=== PATIENT | female | born 2005 | race Caucasian/White ===

== ENCOUNTER 2023-03-25 10:09 | Outpatient (AMB) | payer OTHER, SELFPAY ==
--- NOTE | 2023-03-25 10:14 | A.OFFPC_ITS ---
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 Is last menstrual period known: Yes Last menstrual period: 02/25/23 Allergies amoxicillin [From Augmentin] Allergy (Intermediate, Verified 04/21/23 11:36) Hives clavulanic acid [From Augmentin] Allergy (Intermediate, Verified 04/21/23 11:36) Hives Levaquin Adverse Reaction (Severe, Uncoded 04/21/23 11:36) Nausea and Vomiting Medication List - Last Reconciled 04/21/23 by Josey Villatoro MD albuterol sulfate 90 mcg/actuation 2 puffs inhalation Q6H PRN medroxyprogesterone (Depo-Provera) 150 mg IM [id number] Tobacco use date assessed: 03/25/23 Dental Screening Dental Screen Date: 03/25/23 Did you have a dental visit in the last 12 months?: Yes Did you have a dental problem in the last 6 months where you did not have access to dental care?: No Was dental information given to patient?: Patient has dentist HPI NPV- requesting PHY HPI Details 17-year-old lady, new to practice, here to establish care with new PCP and for physical exam. She was recently seen at [facility] and diagnosed with acute right pyelonephritis January 2023. And at that time was given Levaquin which she was unable to tolerate, and was switched to cefpodoxime. Denies any urinary symptoms at present. She sees to [facility] OBGYN for her routine Pap and 5 exam, currently on Depo-Provera for control. Has mild intermittent asthma, has albuterol inhaler which she rarely needs to use. Does not smoke cigarettes but vapes. [facility] Medical History (Updated 05/19/23 @ 14:30 by Josey Villatoro MD) Vitamin D deficiency Refused influenza vaccine COVID-19 vaccination refused Hx of suicide attempt Anxiety and depression On Depo-Provera for contraception Engages in vaping Mild intermittent asthma History of pyelonephritis Surgical History (Updated 03/25/23 @ 10:59 by Josey Villatoro MD) History of placement of ear tubes H/O removal of cyst History of hand surgery Family History (Updated 03/25/23 @ 11:05 by Josey Villatoro MD) Father Substance use disorder Mental health disorder Chronic alcoholism Mother Depression Maternal Grandmother Mental health disorder Biventricular congestive heart failure Paternal Grandmother Mental health disorder Paternal Grandfather Diabetes mellitus Social History Housing: Apartment Patient Tobacco Use Status: Never used Tobacco e-Cigarette/Vaping Use: Currently Using Current occupational status: employed Current occupation: [employer] Current occupational exposures/hazards: No Cognitive needs: No Hearing needs: No Vision needs: No Female Reproductive History Menstrual Date of last menstrual period: 02/25/23 control method: progesterone injection (Started 03/13/23) Other: sees [facility] has an appointment April 08 for initial Pap/ pelvic exam Questionnaire PHQ-9 Over the last 2 weeks, how often have you been bothered by any of the following problems? 1. Little interest or pleasure in doing things: more than half the days 2. Feeling down, depressed, or hopeless: nearly every day 3. Trouble falling or staying asleep, or sleeping too much: nearly every day 4. Feeling tired or having little energy: more than half the days 5. Poor appetite or overeating: nearly every day 6. Feeling bad about yourself - or that you are a failure or have let yourself or your family down: nearly every day 7. Trouble concentrating on things, such as reading the newspaper or watching television: several days 8. Moving or speaking so slowly that other people could have noticed. Or the opposite - being so fidgety or restless that you have been moving around a lot more than usual: several days 9. Thoughts that you would be better off or of hurting yourself in some way: several days Total score: 19 Depression Screening Interpretation: Positive Depression Screening Follow-up: Existing condition and Community Mental Health Worker F/U Depression Screening Done: Yes 74113 - PHQ-9 Billing: Yes Source: Developed by Drs. Alberto Bejarano, Maricruz Ibanez, Babak Tong and colleagues, with an educational taryn from [employer] Thrive Questionnaire Date Thrive assessed: 03/25/23 I am a: Patient What is your living situation today?: I have a steady place to live Within the past 12 months, did the food you bought not last and you didn't have the money to get more?: Often true Within the past 12 months, did you worry whether your food would run out before you got money to buy more?: Sometimes True Do you have trouble paying for medicines?: Yes Do you have trouble getting transportation to medical appointments?: Yes Do you have trouble paying your heating and electricity bill?: No Do you have trouble taking care of your child, family member or friend?: No Do you have trouble with day-to-day activities such as bathing, preparing meals, shopping, managing finances, etc.?: Yes Are you currently unemployed and looking for a job?: Yes Are you interested in more education?: No Please select the resources that you would like help with: Food, Daily support and Job search/training AUDIT C Alcohol Use Questionnaire (AUDIT-C) 1. How often do you have a drink containing alcohol?: 2-4 times a month 2. How many drinks containing alcohol do you have on a typical day when you are drinking?: 3 or 4 3. How often do you have six or more drinks on one occasion?: Never Total Score: 3 HARVEY-7 AMB Questionnaire HARVEY-7 Date HARVEY - 7 assessed: 03/25/23 Feeling nervous, anxious, or on edge: 3 = Nearly every day Not being able to stop or control worryin = Nearly every day Worrying too much about different things: 3 = Nearly every day Trouble relaxin = Nearly every day Being so restless that it is hard to sit still: 2 = More than half the days Becoming easily annoyed or irritable: 3 = Nearly every day Feeling afraid as if something awful might happen: 3 = Nearly every day Total HARVEY-7 score (0-4 normal; 5-9 mild; 10-14 moderate; 15-21 severe): 20 Source: Developed by Drs. Alberto Bejarano, Maricruz Ibanez, Babak Tong and colleagues, with an educational taryn from [employer] HARVEY-7 Assessment Billing HARVEY-7 Assessment Tool: HARVEY-7 Assessment 38108 Review of Systems Const Denies body aches, Denies fatigue, Denies fever(s), Denies headache(s) and Denies weakness Eyes Denies change in vision, Denies eye discharge and Denies itchy eyes ENT Denies dizziness, Denies headache(s), Denies nasal congestion, Denies nasal discharge and Denies sore throat Card Denies chest pain, Denies lightheadedness, Denies palpitations and Denies dyspnea Resp Denies chest congestion, Denies cough, Denies dyspnea and Denies wheezing GI Denies abdominal pain, Denies change in bowel habits and Denies heartburn Denies hematuria, Denies urinary frequency, Denies dysuria and Denies urinary urgency Musc Reports no additional complaints Skin/Breast Denies breast pain, Denies breast mass, Denies lesions and Denies rash Neuro Denies dizziness, Denies headache(s) and Denies weakness Psych Reports as per HPI Endo Denies fatigue, Denies polydipsia, Denies polyuria and Denies palpitations Dano/Lymph Denies easy bruising Aller/Immun Denies itchy eyes, Denies seasonal rhinorrhea and Denies wheezing Physical exam (Primary Care) Vital Signs: Last Vital Signs Pulse 88 03/25/23 10:18 BP 98/64 03/25/23 10:18 Pulse Ox 99 03/25/23 10:18 Oxygen Delivery Method Room Air 03/25/23 10:18 BMI result Body Mass Index 19.1 Tobacco/Smoking Status: Tobacco use Status Tobacco use date assessed 03/25/23 03/25/23 10:35 Patient Tobacco Use Status Never used Tobacco 03/25/23 10:35 e-Cigarette/Vaping Use Currently Using 03/25/23 10:35 PHQ-9: PHQ-9 Score PHQ-9: Total score 19 03/25/23 11:15 Depression Screening Interpretation: Positive Depression Screening Follow-up: Existing condition and Community Mental Health Worker F/U Thrive Assessment: Date of Thrive Assessment Date Thrive assessed 03/25/23 03/25/23 10:40 Const Other: Accompanied by mother on this visit General: no acute distress and alert Nutritional Appearance: average body habitus Orientation/consciousness: patient oriented x3 HENMT Head: Yes normocephalic and Yes atraumatic Ears: external ears normal, TM's normal bilaterally and EAC's normal General nose exam: Normal external nose present and No nasal discharge present Face and sinus: Yes face symmetric Mouth: Normal oral and palatal mucosa present, lip normal, tongue normal, oropharynx normal and moist mucous membranes Eyes General: appearance normal, both eyes and all related structures Eyelids: Yes eyelids normal Conjunctivae: conjunctivae normal Sclerae: sclerae normal Pupils: Equal, round and reactive pupils present EOM: EOMs intact bilaterally Neck Neck: Yes full ROM, Yes no lymphadenopathy and Yes supple Thyroid: Thyroid normal Chest Breast/axilla palpation: normal palpation of the breasts Resp Effort & Inspection: normal respiratory effort and able to speak in complete sentences Auscultation: clear to auscultation bilaterally Cardio Rate: regular rate Rhythm: regular rhythm Heart sounds: S1 normal heart sound present and S2 normal heart sound present GI Palpation (GI): Soft to palpation, nontender, no guarding and no masses Auscultation: normal bowel sounds General: Yes no CVA tenderness Back/Spine/Pelvis Back: no CVA tenderness and No back tenderness Skin General skin exam: no rashes or lesions noted Neuro General: patient oriented x3, gait normal, moves all extremities, Normal light touch and pain sensation, no focal motor deficits and CN's II-XI intact bilaterally Cranial nerves: Yes Equal, round and reactive pupils present Cognition (Neuro): normal cognition Gait exam (Neuro): Normal gait present Motor exam (neuro): 5/5 motor strength present throughout Extrem General: Yes normal to inspection, Yes full ROM, Yes no joint enlargement, Yes no pedal edema and Yes normal gait Psych Appearance: grossly normal and well kempt Mental Status: mental status grossly normal Speech and movement: Normal speech and movement present Affect: Irritable affect present Attitude: cooperative Thought process: Normal thought process present Thought content: Normal thought content present Assessment and Plan Assessment & Plan (1) Annual visit for general adult medical examination with abnormal findings: Code(s): Z00.01 - Encounter for general adult medical examination with abnormal findings Plan: Will check appropriate labs. Recommended dental visit every 6 months and regular eye exams, at least every 2 years. Advised to do regular self-breast exam, and start yearly mammogram at age 38. Up-to-date with all her childhood vaccinations, including Tdap and HPV, reminded to get her flu shot but declined to get it today and has had COVID vaccines in the past but does not want to get a COVID booster. She goes to [facility] for her routine Pap and pelvic exam, has an appointment for her initial Pap and pelvic exam 04/08/23 (2) Anxiety and depression: Comment: hx of cutting since 6th grade Code(s): F41.9 - Anxiety disorder, unspecified; F32.A - Depression, unspecified Plan: Referred to [facility]. Patient has seen a therapist/psychiatrist in the past at [facility], but disliked the care she received. She has been to [facility] ER in the past and has no mental health past or in-patient hospital admissions. Pt. denies SI thoughts at this time. Pt. to be referred for in-person therap y/psychiatrist. (3) Engages in vaping: Code(s): Z72.89 - Other problems related to lifestyle Plan: Advised to stop vaping habit as she is can cause asthma exacerbation (4) Mild intermittent asthma: Code(s): J45.20 - Mild intermittent asthma, uncomplicated Qualifiers: Asthma complication type: uncomplicated Qualified Code(s): J45.20 - Mild intermittent asthma, uncomplicated Plan: Uses albuterol inhaler as needed for acute episodes of wheezing and bronchospasm , patient states that she rarely needs to use inhaler Orders: Orders Complete Blood Count Auto Diff 03/25/23 F41.9 - Anxiety disorder, unspecified, F32.A - Depression, unspecified, Z72.89 - Other problems related to lifestyle, J45.20 - Mild intermittent asthma, uncomplicated, Z00.01 - Encounter for general adult medical examination with abnormal findings Vitamin D 25-OH Total 03/25/23 F41.9 - Anxiety disorder, unspecified, F32.A - Depression, unspecified, Z72.89 - Other problems related to lifestyle, J45.20 - Mild intermittent asthma, uncomplicated, Z00.01 - Encounter for general adult medical examination with abnormal findings Comprehensive [place]. Panel Fast 03/25/23 F41.9 - Anxiety disorder, unspecified, F32.A - Depression, unspecified, Z72.89 - Other problems related to lifestyle, J45.20 - Mild intermittent asthma, uncomplicated, Z00.01 - Encounter for general adult medical examination with abnormal findings TSH reflex Free T4 03/25/23 F41.9 - Anxiety disorder, unspecified, F32.A - Depression, unspecified, Z72.89 - Other problems related to lifestyle, J45.20 - Mild intermittent asthma, uncomplicated, Z00.01 - Encounter for general adult medical examination with abnormal findings Lipid Panel 03/25/23 Z00.01 - Encounter for general adult medical examination with abnormal findings, Z13.220 - Encounter for screening for lipoid disorders Coding Level of Care Code New Pt Prev Care 18-39yr([id number] Diagnoses Annual visit for general adult medical examination with abnormal findings Z00.01 Anxiety and depression F41.9; F32.A Engages in vaping Z72.89 Mild intermittent asthma without complication J45.20 Asthma complication type: uncomplicated Additional Codes HARVEY-7 Assessment Billing - HARVEY-7 Assessment Tool: HARVEY-7 Assessment 83108 ([id number])
[2023-03-25 10:18] VITALS: BP 98/64; PULSE 88; O2SAT 99; BMI 19.1
== END 2023-03-25 12:29 | disposition home or self-care (01) ==
PROVIDERS: Visit Provider Internal Medicine
DX: Z00.00 Encounter for general adult medical examination without abnormal findings (principal); F41.9 Anxiety disorder, unspecified; F32.A Depression, unspecified; Z72.89 Other problems related to lifestyle; J45.20 Mild intermittent asthma, uncomplicated
CPT/HCPCS: 96127; 99385

== ENCOUNTER 2023-03-25 11:54 | Outpatient (REF) | payer OTHER, SELFPAY ==
[2023-03-25 13:18] LABS: MANUAL DIFF FLAG NO
[2023-03-25 13:40] LABS: Basophils Percent Auto 0.5 % (0-2); Eosinophils Absolute Auto 0.4 X10*3/uL (0.0-0.4); Eosinophils Percent Auto 4.9 % (0-4); Hematocrit 44.2 % (37.0-47.0); Hemoglobin 14.9 g/dl (12.0-16.0); Imm Gran Abs Auto 0.02 X10*3/uL (0.00-0.03); Imm Gran Pct Auto 0.2 % (0.0-0.4); Lymphocytes Absolute Auto 3.9 X10*3/uL (1.2-4.9); Lymphocytes Percent Auto 48.8 % (20-40); Mean Corpuscular HGB Conc 33.7 g/dl (31.0-35.0); Mean Corpuscular Hemoglobin 28.9 pg (27.0-33.0); Mean Corpuscular Volume 85.8 fL (80.0-98.0); Mean Platelet Volume 10.3 fL (9.4-12.3); Monocytes Absolute Auto 0.7 X10*3/uL (0.1-1.2); Monocytes Percent Auto 8.2 % (2-11); Neutrophils Percent Auto 37.4 % (45-73); Platelet Count 273 X10*3/uL (160-400); Red Blood Count 5.15 X10*6/uL (4.20-5.50)
[2023-03-25 14:13] LABS: Alanine Aminotransferase 19 U/L (0-31); Albumin Level 4.8 g/dL (3.5-5.0); Alkaline Phosphatase 73 U/L (39-117); Anion Gap 10 (12-20); Aspartate Amino Transferase 22 U/L (5-31); Bilirubin Total 1.5 mg/dL (0.0-1.0); Blood Urea Nitrogen 8 mg/dL (9-16); Calcium 9.4 mg/dL (8.4-10.2); Carbon Dioxide 23 mmol/L (22-29); Chloride 106 mmol/L (96-108); Cholesterol 168 mg/dL (<200); Estimated Glomerular Filt Rate > 60; Glucose Fasting 82 mg/dL (60-99); HDL Cholesterol 59 mg/dL (>40); LDL Cholesterol Calculated 99 mg/dL (<100); Potassium 3.8 mmol/L (3.3-5.1); Sodium 135 mmol/L (135-145); Triglycerides 50 mg/dL (<150)
[2023-03-25 14:15] LABS: Vitamin D 25-OH Total 28.9 ng/mL (>30)
== END 2023-03-25 11:55 | disposition home or self-care (01) ==
LOC: HO.HMGCLDS 11:54
PROVIDERS: PCP Internal Medicine; Visit Provider Internal Medicine
DX: Z00.01 Encounter for general adult medical examination with abnormal findings (principal); Z13.220 Encounter for screening for lipoid disorders; J45.20 Mild intermittent asthma, uncomplicated; F41.9 Anxiety disorder, unspecified; F32.A Depression, unspecified; Z72.89 Other problems related to lifestyle
CPT/HCPCS: 36415; 80053; 80061; 82306; 84443; 85025

== ENCOUNTER 2023-04-21 10:56 | Outpatient (AMB) | payer OTHER, SELFPAY ==
[2023-04-21 10:57] VITALS: BP 94/60; PULSE 96; O2SAT 99; BMI 20.2
--- NOTE | 2023-04-21 10:57 | MHC.PC.OV ---
Vital Signs 04/21/23 10:57 Height 5 ft 3.2 in Weight 115 lb BMI 20.2 BP 94/60 Blood Pressure Location Lt brachial Position Sitting Pulse 96 Pulse Source Pulse Oximeter Pulse Oximetry (%) 99 Oxygen Delivery Method Room Air Intake Visit Reasons: Discuss lab/?Urine test Intake Note: Pt is here today to discuss lab results: No current urinary symptoms Allergies amoxicillin [From Augmentin] Allergy (Intermediate, Verified 04/21/23 11:36) Hives clavulanic acid [From Augmentin] Allergy (Intermediate, Verified 04/21/23 11:36) Hives Levaquin Adverse Reaction (Severe, Uncoded 04/21/23 11:36) Nausea and Vomiting Medication List - Last Reconciled 04/21/23 by Josey Villatoro MD albuterol sulfate 90 mcg/actuation 2 puffs inhalation Q6H PRN medroxyprogesterone (Depo-Provera) 150 mg IM [id number] Tobacco use date assessed: 04/21/23 Dental Screening Dental Screen Date: 04/21/23 Did you have a dental visit in the last 12 months?: Yes Did you have a dental problem in the last 6 months where you did not have access to dental care?: No Was dental information given to patient?: Patient has dentist HPI Discuss lab/?Urine test HPI Details 17-year-old lady here today for follow-up regarding results of recent lab test done. Which showed findings within normal limits except for low vitamin-D level. She also is here stating that she tested positive for chlamydia and was prescribed antibiotics by her OB , requesting to be retested. Denies any vaginal discharge, no urinary symptoms, no abdominal pain. [facility] Medical History (Updated 05/19/23 @ 14:30 by Josey Villatoro MD) Vitamin D deficiency Refused influenza vaccine COVID-19 vaccination refused Hx of suicide attempt Anxiety and depression On Depo-Provera for contraception Engages in vaping Mild intermittent asthma History of pyelonephritis Surgical History (Updated 03/25/23 @ 10:59 by Josey Villatoro MD) History of placement of ear tubes H/O removal of cyst History of hand surgery Family History (Updated 03/25/23 @ 11:05 by Josey Villatoro MD) Father Substance use disorder Mental health disorder Chronic alcoholism Mother Depression Maternal Grandmother Mental health disorder Biventricular congestive heart failure Paternal Grandmother Mental health disorder Paternal Grandfather Diabetes mellitus Social History Housing: Apartment Patient Tobacco Use Status: Never used Tobacco e-Cigarette/Vaping Use: Currently Using Current occupational status: employed Current occupation: [employer] Current occupational exposures/hazards: No Cognitive needs: No Hearing needs: No Vision needs: No Questionnaire Thrive Questionnaire Date Thrive assessed: 03/25/23 HARVEY-7 AMB Questionnaire HARVEY-7 Date HARVEY - 7 assessed: 03/25/23 Source: Developed by Drs. Alberto Bejarano, Maricruz Ibanez, Babak Tong and colleagues, with an educational taryn from [employer]. Review of Systems Const Denies fever(s) ENT Denies nasal congestion, Denies nasal discharge and Denies sore throat Card Denies chest pain, Denies lightheadedness, Denies palpitations and Denies dyspnea Resp Denies chest congestion, Denies cough, Denies dyspnea and Denies wheezing GI Denies abdominal pain, Denies change in bowel habits and Denies heartburn Denies hematuria, Denies urinary frequency, Denies dysuria, Denies urinary urgency, Denies vaginal discharge, Denies vaginal odor and Denies vaginal pruritus Musc Reports no additional complaints Skin/Breast Denies lesions and Denies rash Psych Reports as per HPI Endo Denies polydipsia, Denies polyuria and Denies palpitations Dano/Lymph Denies easy bruising Aller/Immun Denies seasonal rhinorrhea and Denies wheezing Physical exam (Primary Care) Vital Signs: Last Vital Signs Pulse 96 04/21/23 10:57 BP 94/60 04/21/23 10:57 Pulse Ox 99 04/21/23 10:57 Oxygen Delivery Method Room Air 04/21/23 10:57 BMI result Body Mass Index 20.2 Tobacco/Smoking Status: Tobacco use Status Tobacco use date assessed 04/21/23 04/21/23 11:03 Patient Tobacco Use Status Never used Tobacco 04/21/23 11:03 e-Cigarette/Vaping Use Currently Using 04/21/23 11:03 Thrive Assessment: Date of Thrive Assessment Date Thrive assessed 03/25/23 04/21/23 11:03 Const General: no acute distress and alert Nutritional Appearance: average body habitus HENMT Ears: external ears normal General nose exam: Normal external nose present Face and sinus: Yes face symmetric Mouth: Normal oral and palatal mucosa present, oropharynx normal and moist mucous membranes Neck Neck: Yes full ROM, Yes no lymphadenopathy and Yes supple Thyroid: Thyroid normal Resp Effort & Inspection: normal respiratory effort and able to speak in complete sentences Auscultation: clear to auscultation bilaterally Cardio Rate: regular rate Rhythm: regular rhythm Heart sounds: S1 normal heart sound present and S2 normal heart sound present GI Palpation (GI): Soft to palpation, nontender, no guarding and no masses Auscultation: normal bowel sounds General: Yes no CVA tenderness Back/Spine/Pelvis Back: no CVA tenderness and No back tenderness Skin General skin exam: no rashes or lesions noted Extrem General: Yes normal to inspection, Yes full ROM, Yes no joint enlargement, Yes no pedal edema and Yes normal gait Assessment and Plan Assessment & Plan (1) Vitamin D deficiency: Code(s): E55.9 - Vitamin D deficiency, unspecified Plan: Prescription sent for vitamin-D 3 at 125 mg per capsule to take once a day for the next 3 months (2) Hx of chlamydia infection: Code(s): Z86.19 - Personal history of other infectious and parasitic diseases Plan: Currently asymptomatic, completed 7 day course of antibiotics given by her OB. CT/NG by PCR collected today Orders: Orders CT NG by PCR 04/21/23 Z86.19 - Personal history of other infectious and parasitic diseases Medications: New cholecalciferol (vitamin D3) 125 mcg PO DAILY 90 caps 0RF NS E55.9 - Vitamin D deficiency, unspecified Coding Level of Care Code Est Pt Level 3 (85754) Diagnoses Vitamin D deficiency E55.9 Hx of chlamydia infection Z86.19
== END 2023-04-21 14:09 | disposition home or self-care (01) ==
LOC: HO.HMGC 10:56
PROVIDERS: PCP Internal Medicine; Visit Provider Internal Medicine
DX: E55.9 Vitamin D deficiency, unspecified (principal); Z86.19 Personal history of other infectious and parasitic diseases
CPT/HCPCS: 99213

== ENCOUNTER 2023-04-21 11:35 | Outpatient (REF) | payer OTHER, SELFPAY ==
[2023-04-21 14:45] LABS: CT PCR DETECTED (Not Detect.); NG PCR NOT DETECTED (Not Detect.)
== END 2023-04-21 11:36 | disposition home or self-care (01) ==
LOC: HO.LAB 11:35
PROVIDERS: Visit Provider Internal Medicine
DX: Z86.19 Personal history of other infectious and parasitic diseases (principal); Z20.2 Contact with and (suspected) exposure to infections with a predominantly sexual mode of transmission
CPT/HCPCS: 0353U

== ENCOUNTER 2023-05-28 10:42 | Outpatient (AMB) | payer OTHER, SELFPAY ==
--- NOTE | 2023-05-28 10:45 | AM.OFFWIN_ITS ---
Intake Vital Signs 05/28/23 10:46 Height 5 ft 3.2 in Weight 110 lb 2 oz BMI 19.4 BP 102/62 Blood Pressure Location Rt brachial Position Sitting Pulse 125 H Pulse Source Pulse Oximeter Temp 98.1 F Temp Source Oral Pulse Oximetry (%) 98 Oxygen Delivery Method Room Air Intake Visit Reasons: EST/fever, bowel issues ([phone]) Intake Note: pt is here today for c/o fever, abd discomfort, loose stools, 2 days Patient Tobacco Use Status: Never used Tobacco Allergies amoxicillin [From Augmentin] Allergy (Intermediate, Verified 05/28/23 10:46) Hives clavulanic acid [From Augmentin] Allergy (Intermediate, Verified 05/28/23 10:46) Hives Levaquin Adverse Reaction (Severe, Uncoded 04/21/23 11:36) Nausea and Vomiting Do you need a note to return to daycare/school/sports/work: Yes (RETURN THURSDAY ) Return to daycare/school/sports/work/other note: work HPI HPI Comments History of Present Illness Details 17 y/o female patient who presents to [facility] with c/o Nausea,vomiting, abd pain, diarrhea and subjective fevers at home. Reports that symptoms started 2 days ago. LMP: Depo every 3 months. Sexually active with 1 partner, no protection. Denies . Denies Urinary or vaginal symptoms. REPLACED BY [facility] Medical History (Updated 05/19/23 @ 14:30 by Josey Villatoro MD) Vitamin D deficiency Refused influenza vaccine COVID-19 vaccination refused Hx of suicide attempt Anxiety and depression On Depo-Provera for contraception Engages in vaping Mild intermittent asthma History of pyelonephritis Surgical History (Updated 03/25/23 @ 10:59 by Josey Villatoro MD) History of placement of ear tubes H/O removal of cyst History of hand surgery Family History (Updated 03/25/23 @ 11:05 by Josey Villatoro MD) Father Substance use disorder Mental health disorder Chronic alcoholism Mother Depression Maternal Grandmother Mental health disorder Biventricular congestive heart failure Paternal Grandmother Mental health disorder Paternal Grandfather Diabetes mellitus Social History Housing: Apartment Patient Tobacco Use Status: Never used Tobacco e-Cigarette/Vaping Use: Currently Using Current occupational status: employed Current occupation: [email or web address] Current occupational exposures/hazards: No Cognitive needs: No Hearing needs: No Vision needs: No Review of Systems Const All systems reviewed & are unremarkable except as noted in HPI and below Physical Exam Vital Signs: Last Vital Signs Temp 98.1 F 05/28/23 10:46 Pulse 125 H 05/28/23 10:46 BP 102/62 05/28/23 10:46 Pulse Ox 98 05/28/23 10:46 Oxygen Delivery Method Room Air 05/28/23 10:46 BMI result Body Mass Index 19.4 Const General: no acute distress HEENT Head: Yes normocephalic Ears: external ears normal and TM's normal bilaterally General nose exam: Normal nasal mucous membranes and turbinates present Face and sinus: Yes sinuses nontender Mouth: oropharynx normal and moist mucous membranes Throat: Yes posterior oropharynx normal Cardio Bruits: no abdominal aortic bruits GI Inspection: Yes normal to inspection, No Abdominal wall edema, No distended and No obesity Palpation (GI): No Abdominal aortic bruit present, Soft to palpation, nontender, no guarding and No hepatosplenomegaly present Auscultation: normal bowel sounds Rectal Exam - Female: deferred General: Yes bladder normal to inspection and Yes no CVA tenderness Back/Spine/Pelvis Back: no CVA tenderness Assessment & Plan Assessment & Plan (1) Acute rhinosinusitis: Code(s): J01.90 - Acute sinusitis, unspecified (2) Gastritis: Code(s): K29.70 - Gastritis, unspecified, without bleeding Qualifiers: Chronicity: acute Gastritis bleeding: without bleeding Gastritis type: other gastritis Qualified Code(s): K29.00 - Acute gastritis without bleeding Plan: - BLAND diet - Getorade and Pedilyte - Rest - Warm fluids. - Acetaminophen for fever and pain - Plan - BLAND diet - Getorade and Pedilyte - Rest - Warm fluids. - Acetaminophen for fever and pain - Orders: Orders SARS-CoV2/FLU/RSV Today J01.90 - Acute sinusitis, unspecified Medications: New ondansetron 8 mg PO Q8H 30 tabs 0RF NAUSEA AND VOMITING K29.00 - Acute gastritis without bleeding famotidine (Acid Technical Applications Scientist (famotidine)) 20 mg (2 x 10 mg) PO BEDTIME 14 tabs 0RF K29.00 - Acute gastritis without bleeding acetaminophen 1,000 mg (2 x 500 mg) PO Q6H PRN 30 caps 0RF fever R51.9 - Headache, unspecified Coding Level of Care Code Est Pt Level 3 (03628) Diagnoses Acute rhinosinusitis J01.90 Other acute gastritis without hemorrhage K29.00 Chronicity: acute Gastritis bleeding: without bleeding Gastritis type: other gastritis Time Spent (min) 15
[2023-05-28 10:46] VITALS: BP 102/62; PULSE 125; TEMP 36.7; O2SAT 98; BMI 19.4
== END 2023-05-28 11:39 | disposition home or self-care (01) ==
PROVIDERS: PCP Internal Medicine; Visit Provider Nurse Practitioner Family
DX: J01.90 Acute sinusitis, unspecified (principal); K29.00 Acute gastritis without bleeding
CPT/HCPCS: 99213

== ENCOUNTER 2023-05-28 13:14 | Outpatient (REF) | payer OTHER, SELFPAY ==
[2023-05-28 14:24] LABS: Influenza A PCR NEGATIVE (Negative); Influenza B PCR NEGATIVE (Negative); Resp Syncy Virus RNA Qual PCR NEGATIVE (Negative); SARS COV2 PCR INHOUSE NEGATIVE (Negative)
== END 2023-05-28 13:15 | disposition home or self-care (01) ==
LOC: HO.LAB 13:14
PROVIDERS: Visit Provider Nurse Practitioner Family
DX: Z11.52 Encounter for screening for COVID-19 (principal); Z20.822 Contact with and (suspected) exposure to COVID-19; J01.90 Acute sinusitis, unspecified
CPT/HCPCS: 0241U

== ENCOUNTER 2023-06-17 09:51 | Outpatient (AMB) | payer OTHER, SELFPAY ==
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
[2023-06-17 10:07] VITALS: BP 116/68; PULSE 95; TEMP 37.1; O2SAT 97; BMI 20.1
== END 2023-06-17 10:27 | disposition home or self-care (01) ==
PROVIDERS: PCP Internal Medicine; Visit Provider Nurse Practitioner Family
DX: G44.309 Post-traumatic headache, unspecified, not intractable (principal)
CPT/HCPCS: 99213

== ENCOUNTER 2023-07-04 08:59 | Emergency (ER) | payer OTHER, SELFPAY ==
[2023-07-04 09:03] VITALS: BP 118/58; PULSE 120; RESP 18; TEMP 37; O2SAT 97; BMI 20.2
[2023-07-04 09:53] LABS: Influenza A PCR NEGATIVE (Negative); Influenza B PCR NEGATIVE (Negative); Resp Syncy Virus RNA Qual PCR NEGATIVE (Negative); SARS COV2 PCR INHOUSE NEGATIVE (Negative)
--- NOTE | 2023-07-04 10:40 | ED_ITS ---
HPI - URI/Sore Throat General Chief Complaint: Upper Respiratory Symptoms Stated Complaint: diff breathing, flu like symptoms Time Seen by Provider: 07/04/23 10:24 Source: patient and family Mode of arrival: ambulatory Limitations: no limitations History of Present Illness HPI Narrative: 17-year-old female with a history of asthma presents the ER with 1 week of nasal congestion, sinus pressure, sinus pain, chills and body aches. 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 They happen several illnesses going around. She denies any fevers, chest pain, shortness of breath, difficulty swallowing, difficulty breathing, vomiting, diarrhea, abdominal pain or skin rash. Related Data Home Medications Medication Instructions Recorded Confirmed albuterol sulfate 90 mcg/actuation 2 puff inhalation Q6H PRN 03/25/23 04/21/23 aerosol inhaler medroxyprogesterone 150 mg/mL 150 mg IM [id number] 03/25/23 04/21/23 intramuscular syringe (Depo-Provera) clindamycin HCl 300 mg capsule 300 mg PO TID 06/17/23 medroxyprogesterone 150 mg/mL mg IM 06/17/23 intramuscular suspension Previous Rx's Medication Instructions Recorded cholecalciferol (vitamin D3) 125 125 mcg PO DAILY #90 caps 04/21/23 mcg (5,000 unit) capsule acetaminophen 500 mg capsule 1,000 mg (2 x 500 mg) PO Q6H PRN 05/28/23 fever #30 caps famotidine 10 mg tablet (Acid 20 mg (2 x 10 mg) PO BEDTIME #14 05/28/23 Production Coordinator (famotidine)) tabs ondansetron 8 mg disintegrating 8 mg PO Q8H NAUSEA AND VOMITING 05/28/23 tablet #30 tabs albuterol sulfate 90 mcg/actuation 2 puff inhalation Q4-6H PRN 07/04/23 aerosol inhaler shortness of breath or wheezing #6.7 grams azithromycin 250 mg tablet See Rx Instructions PO .COMPLEX #6 07/04/23 tabs Allergies Allergy/AdvReac Type Severity Reaction Status Date / Time amoxicillin [From Augmentin] Allergy Intermediate Hives Verified 06/17/23 10:09 clavulanic acid Allergy Intermediate Hives Verified 06/17/23 10:09 [From Augmentin] Levaquin AdvReac Severe Nausea and Uncoded 04/21/23 11:36 Vomiting Review of Systems Review of Systems: Yes all other systems are reviewed and are negative Constitutional: Constitutional: Reports no additional constitutional complaints, Reports body ache(s), Reports chills, Denies fever(s), Denies headache(s) and Denies weakness Eyes: Eyes: Reports no additional eye complaints and Denies change in vision ENT: Reports system reviewed and no additional complaints, except as documented, Denies dizziness, Denies headache(s), Reports nasal congestion, Denies nasal discharge, Denies neck pain, Reports sinus pain and Reports sinus pressure Cardiovascular: Cardiovascular: Reports no additional cardiovascular complaints, Denies chest pain, Denies leg edema and Denies dyspnea Respiratory: Respiratory: Reports no additional respiratory complaints, Denies cough and Denies dyspnea Gastrointestinal: Gastrointestinal: Reports no additional gastrointestinal complaints, Denies abdominal pain, Denies diarrhea, Denies nausea and Denies vomiting Genitourinary: Genitourinary: Reports no additional female genitourinary complaints and Denies urinary incontinence Musculoskeletal: Musculoskeletal: Reports no additional musculoskeletal complaints, Denies back pain, Denies arthralgias, Denies joint swelling, Denies neck pain, Denies numbness and Denies tingling Integumentary/Breasts: Skin/Breast: Reports system reviewed and no additional complaints, except as docu and Denies rash Neurologic: Reports system reviewed and no additional complaints, except as documented, Denies Abnormal speech present, Denies dizziness, Denies headache(s), Denies numbness, Denies tingling and Denies weakness PMFSH Past Medical History Attestation statement: The following information was validated with the patient. Source: old records reviewed and nursing notes reviewed Medical History Vitamin D deficiency Refused influenza vaccine COVID-19 vaccination refused Hx of suicide attempt Anxiety and depression On Depo-Provera for contraception Engages in vaping Mild intermittent asthma History of pyelonephritis Surgical History History of placement of ear tubes H/O removal of cyst History of hand surgery Family History Family History Father Substance use disorder Mental health disorder Chronic alcoholism Mother Depression Maternal Grandmother Mental health disorder Biventricular congestive heart failure Paternal Grandmother Mental health disorder Paternal Grandfather Diabetes mellitus Social History Social History Housing: Apartment Patient Tobacco Use Status: Never used Tobacco e-Cigarette/Vaping Use: Currently Using Advance Directives: No Advance Directives Information Provided: No Current occupational status: employed Current occupation: [employer] Current occupational exposures/hazards: No Cognitive needs: No Hearing needs: No Vision needs: No Physical Exam Vital Signs: Vital Signs: Last Vital Signs Temp 99.0 F 07/04/23 10:49 Pulse 100 07/04/23 10:49 Resp 16 07/04/23 10:49 BP 106/61 07/04/23 10:49 Pulse Ox 98 07/04/23 10:49 O2 Del Method Room Air 07/04/23 10:49 BMI result Body Mass Index 20.2 Const: General: cooperative, healthy appearing, comfortable and no acute distress Orientation/consciousness: patient oriented x3 Limitations: no limitations HEENT: Head: Yes normal to inspection Ears: hearing grossly normal bilaterally, mastoids normal, no periauricular adenopathy and TM abnormal bulg ing; not erythematous General nose exam: Normal external nose present, Abnormal mucous membranes and turbinates present erythematous and Nasal discharge present Face and sinus: Yes normal facial exam and Yes sinus tenderness Mouth: Normal oral and palatal mucosa present Throat: Yes posterior oropharynx normal, Yes tonsils normal and Yes uvula midline Eyes: General: appearance normal, both eyes and all related structures Pupils: Equal, round and reactive pupils present Neck: Neck: Yes normal visual inspection, Yes full ROM, Yes no lymphadenopathy and Yes no meningeal signs Chest: Chest palpation & inspection: normal inspection of the chest Resp: Effort & Inspection: normal respiratory effort Auscultation: clear to auscultation bilaterally Cardio: Rate: regular rate Rhythm: regular rhythm Peripheral pulses: Peripheral pulses 2+ throughout GI: Inspection: Yes normal to inspection Palpation (GI): Soft to palpation and nontender Auscultation: normal bowel sounds Back/Spine/Pelvis: Thoracic/Lumbar Spine: thoracic and lumbar spine normal to inspection Skin: General skin exam: no rashes or lesions noted Neuro: General: patient oriented x3, no meningeal signs, no focal motor deficits and normal sensation to monofilament Cranial nerves: Yes Equal, round and reactive pupils present Cognition (Neuro): normal cognition Speech: No Abnormal speech present Gait exam (Neuro): Normal gait present Motor exam (neuro): 5/5 motor strength present throughout Extrem: General: Yes normal to inspection, Yes no pedal edema and Yes no calf tenderness Medical Decision Making Medical Decision Making [facility] Narrative: 17-year-old female with a history of asthma presents the ER with 1 week of nasal congestion, sinus pressure, sinus pain, chills and body aches. 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 They happen several illnesses going around. She denies any fevers, chest pain, shortness of breath, difficulty swallowing, difficulty breathing, vomiting, diarrhea, abdominal pain or skin rash. Patient with sinus TTP. nasal turbinate erythema and bogginess Initially tachycardic at triage, improved on re-assessment Likely with sinusitis Will send viral testing Differential Diagnosis Differential Diagnoses: The differential diagnosis associated with the presentation includes Sinusitis, viral infection, otitis media, strep pharyngitis, bronchitis Low suspicion for pneumonia, RPA, PATIENT CASE COORDINATOR, epiglottitis, Isidoro's angina Admission/Observation Consideration of admission/observation: Escalation of care including admission/observation considered patient viral syndrome, tolerating p.o., stable vital signs not requiring any further intervention or admission Lab Data [facility] Lab Attestation statement: I reviewed the patient's lab results. Labs: Lab Results 07/04/23 Range/Units 09:09 Influenza Type A (PCR) NEGATIVE (Negative) Influenza Type B (PCR) NEGATIVE (Negative) RSV RNA Qual (PCR) NEGATIVE (Negative) SARS-CoV-2 RNA (RT-PCR) NEGATIVE (Negative) Independent Historian Clinical information obtained from an independent historian. History obtained from or confirmed by: Parent Tests considered The following testing was considered but not selected: no hypoxia or tachypnea to suggest need for chest x-ray Prescription Management I considered prescription management with: Antibiotic Discharge Plan Discharge Clinical Impression: Sinusitis Patient Disposition: Home, Self-Care Instructions: Sinusitis (ED) Additional Instructions: testing for flu, COVID, RSV are negative Take Motrin or Tylenol as needed Buy an uhat-nzo-aefcqme decongestant like Mucinex to take daily Prescriptions: New azithromycin 250 mg tablet See Rx Instructions .ROUTE .COMPLEX Qty: 6 0RF Rx Instructions: For 250 mg dose pack: take 500 mg today (day 1), then 250 mg for 4 days (days 2-5) albuterol sulfate 90 mcg/actuation HFA aerosol inhaler 2 puff inhalation Q4-6H PRN (Reason: shortness of breath or wheezing) Qty: 6.7 0RF No Action albuterol sulfate 90 mcg/actuation HFA aerosol inhaler 2 puff inhalation Q6H PRN medroxyprogesterone [Depo-Provera] 150 mg/mL syringe 150 mg IM [id number] ondansetron 8 mg tablet,disintegrating 8 mg PO Q8H Qty: 30 0RF famotidine [Acid Production Coordinator (famotidine)] 10 mg tablet 20 mg PO BEDTIME Qty: 14 0RF acetaminophen 500 mg capsule 1,000 mg PO Q6H PRN (Reason: fever) Qty: 30 0RF cholecalciferol (vitamin D3) 125 mcg (5,000 unit) capsule 125 mcg PO DAILY Qty: 90 0RF medroxyprogesterone 150 mg/mL suspension IM clindamycin HCl 300 mg capsule 300 mg PO TID Referrals: Josey Villatoro MD [Primary Care Provider] - 1 week Interventions: ED Discharge Assessment Last Done: 07/04/23 10:50 Discharge Date/Time: 07/04/23 10:51
[2023-07-04 10:49] VITALS: BP 106/61; PULSE 100; RESP 16; TEMP 37.2; O2SAT 98
== END 2023-07-04 10:51 | disposition home or self-care (01) ==
PROVIDERS: Emergency Provider Student in an Organized Health Care Education/Training Program; PCP Internal Medicine
DX: J32.9 Chronic sinusitis, unspecified (principal); R09.81 Nasal congestion; Z11.52 Encounter for screening for COVID-19; Z20.828 Contact with and (suspected) exposure to other viral communicable diseases
CPT/HCPCS: 0241U; 99283

== ENCOUNTER 2023-07-10 09:17 | Outpatient (AMB) | payer OTHER, SELFPAY ==
--- NOTE | 2023-07-10 09:21 | MHC.OFFWIV ---
Intake Vital Signs 07/10/23 09:22 Weight 115 lb BP 104/60 Blood Pressure Location Rt brachial Position Sitting Pulse 104 H Pulse Source Pulse Oximeter Temp 98.3 F Temp Source Oral Pulse Oximetry (%) 98 Oxygen Delivery Method Room Air Intake Visit Reasons: EP sinus pain congestion (lobby) Intake Note: Patient here because she went to ED on thursday and was put on antibiotics for her SOB, stomach pain/pressure, nausea, vomiting, congestion. she has finished her antibiotics and still feeling the same. Patient Tobacco Use Status: Never used Tobacco Allergies amoxicillin [From Augmentin] Allergy (Intermediate, Verified 07/10/23 09:26) Hives clavulanic acid [From Augmentin] Allergy (Intermediate, Verified 07/10/23:26) Hives Levaquin Adverse Reaction (Severe, Uncoded 07/10/23:26) Nausea and Vomiting Do you need a note to return to daycare/school/sports/work: Yes HPI HPI Comments History of Present Illness Details This is a 17-year-old female who presents to the walk-in clinic complaining of persistent/worsening nasal/sinus congestion and rhinorrhea for the past 5-6 days. 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 She was seen in the emergency room on 07/07/2023 and diagnosed with sinusitis and she was given a prescription for a Z-Tutu. Patient states she has been taking this medication but her symptoms have persisted and even slightly worsened. She reports significant green-yellow nasal discharge as well as a productive cough with green-yellow sputum. She reports difficulty breathing mostly because she can not breathe through her nose due to her congestion and her mouth becomes dry overnight as she is mouth breathing. She reports associated fatigue, myalgias, and malaise. She denies any fever/chills. She denies any chest pain. She also reports some mild nausea. [facility] Medical History Vitamin D deficiency Refused influenza vaccine COVID-19 vaccination refused Hx of suicide attempt Anxiety and depression On Depo-Provera for contraception Engages in vaping Mild intermittent asthma History of pyelonephritis Surgical History History of placement of ear tubes H/O removal of cyst History of hand surgery Family History Father Substance use disorder Mental health disorder Chronic alcoholism Mother Depression Maternal Grandmother Mental health disorder Biventricular congestive heart failure Paternal Grandmother Mental health disorder Paternal Grandfather Diabetes mellitus Social History Housing: Apartment Patient Tobacco Use Status: Never used Tobacco e-Cigarette/Vaping Use: Currently Using Current occupational status: employed Current occupation: [employer] Current occupational exposures/hazards: No Cognitive needs: No Hearing needs: No Vision needs: No Review of Systems Const All systems reviewed & are unremarkable except as noted in HPI and below Reports no additional complaints Eyes Reports no additional complaints ENT Reports no additional complaints Card Reports no additional complaints Resp Reports no additional complaints GI Reports no additional complaints Reports no additional complaints Musc Reports no additional complaints Skin/Breast Reports system reviewed and no additional complaints, except as documented Neuro Reports no additional complaints Psych Reports no additional complaints Endo Reports no additional complaints Dano/Lymph Reports no additional complaints Aller/Immun Reports no additional complaints Physical Exam Vital Signs: Last Vital Signs Temp 98.3 F 07/10/23 09:22 Pulse 104 H 07/10/23 09:22 BP 104/60 07/10/23 09:22 Pulse Ox 98 07/10/23 09:22 Oxygen Delivery Method Room Air 07/10/23 09:22 Const Other: Vital signs reviewed. Constitutional: Non-toxic appearing. No acute distress. Well-developed and well-nourished. HEENT: Normocephalic and atraumatic. Erythematous and boggy nasal turbinates. She has mild facial tenderness to palpation. Skin: Warm and dry. No rashes or lesions noted. Neck: Full and painless range of motion. No cervical lymphadenopathy. Cardio: Regular rate and rhythm. No murmurs, gallops, or rubs. No lower extremity edema. No JVD. Pulmonary: No respiratory distress. No accessory muscle usage. Clear to auscultation bilaterally without wheezing, crackles, or rhonchi. Gastrointestinal: Soft, nontender, and nondistended in all 4 quadrants. Normoactive bowel sounds in all 4 quadrants. Genitourinary: No CVA tenderness. Musculoskeletal: Normal range of motion in joints throughout the body. No deformity or other signs of injury. Neuro: Alert and oriented x4. Cranial nerves 2-12 grossly intact. No focal deficits appreciated. Psych: Normal mood and affect. Assessment & Plan Assessment & Plan (1) Acute bacterial rhinosinusitis: Code(s): J01.90 - Acute sinusitis, unspecified; B96.89 - Other specified bacterial agents as the cause of diseases classified elsewhere Plan: This is a 17-year-old female who presented to the office complaining of persistent/worsening nasal/sinus congestion with green/yellow nasal discharge and sputum production for the past 5-6 days. Patient was started on a Z-Tutu 3 days ago without any relief. Her history and physical most consistent with acute bacterial rhinosinusitis. She was negative for COVID/RSV/flu just 3 days ago. Patient was instructed to discontinue the azithromycin and start p.o. doxycycline 100 mg twice daily x7 days this is a better antibiotic for acute bacterial sinusitis. She has an allergy to Augmentin. Patient was provided with a work note to return to work on Thursday as long as she practices basic hygiene such as washing her hands, covering her mouth when she coughs/sneezes, and wears a mask. Patient was advised to follow-up here or proceed to the emergency room if he were to develop persistent/worsening symptoms. The patient and her mother verbalized their understanding and they are in agreement with the plan. Medications: New doxycycline hyclate 100 mg PO BID 14 caps 0RF Coding Level of Care Code Est Pt Level 3 (96192) Diagnoses Acute bacterial rhinosinusitis J01.90; B96.89
[2023-07-10 09:22] VITALS: BP 104/60; PULSE 104; TEMP 36.8; O2SAT 98
== END 2023-07-10 10:13 | disposition home or self-care (01) ==
PROVIDERS: PCP Internal Medicine; Visit Provider Physician Assistant Medical
DX: J01.90 Acute sinusitis, unspecified (principal); B96.89 Other specified bacterial agents as the cause of diseases classified elsewhere
CPT/HCPCS: 99213

== ENCOUNTER 2023-08-04 20:14 | Emergency (ER) | payer OTHER, SELFPAY ==
[2023-08-04 21:45] VITALS: BP 125/65; PULSE 116; RESP 16; TEMP 37.1; O2SAT 98; BMI 20.7
[2023-08-04 22:14] LABS: MANUAL DIFF FLAG NO
[2023-08-04 22:16] LABS: Basophils Absolute Auto 0.1 X10*3/uL (0.0-0.2); Basophils Percent Auto 0.4 % (0-2); Eosinophils Absolute Auto 0.4 X10*3/uL (0.0-0.4); Eosinophils Percent Auto 3.1 % (0-4); Hematocrit 41.2 % (37.0-47.0); Hemoglobin 14.2 g/dl (12.0-16.0); Imm Gran Abs Auto 0.03 X10*3/uL (0.00-0.03); Imm Gran Pct Auto 0.3 % (0.0-0.4); Lymphocytes Absolute Auto 4.8 X10*3/uL (1.2-4.9); Mean Corpuscular HGB Conc 34.5 g/dl (31.0-35.0); Mean Corpuscular Hemoglobin 29.7 pg (27.0-33.0); Mean Corpuscular Volume 86.2 fL (80.0-98.0); Mean Platelet Volume 9.6 fL (9.4-12.3); Monocytes Absolute Auto 0.7 X10*3/uL (0.1-1.2); Monocytes Percent Auto 6.5 % (2-11); Neutrophils Absolute Auto 5.2 x10*3/uL (2.0-8.3); Neutrophils Percent Auto 46.7 % (45-73); Platelet Count 244 X10*3/uL (160-400); Red Blood Count 4.78 X10*6/uL (4.20-5.50); White Blood Count 11.2 X10*3/uL (4.8-10.8)
[2023-08-04 22:22] LABS: IDNOW Serial# 58CA691E; Strep A Nucleic Acid Negative (Negative)
[2023-08-04 22:36] LABS: Alanine Aminotransferase 24 U/L (0-31); Albumin Level 4.7 g/dL (3.5-5.0); Alkaline Phosphatase 65 U/L (39-117); Anion Gap 15 (12-20); Aspartate Amino Transferase 19 U/L (5-31); Bilirubin Total 0.8 mg/dL (0.0-1.0); Blood Urea Nitrogen 12 mg/dL (9-16); Calcium 9.1 mg/dL (8.4-10.2); Carbon Dioxide 21 mmol/L (22-29); Chloride 108 mmol/L (96-108); Creatinine Clr Calc Pharmacy 93.9; Estimated Glomerular Filt Rate > 60; Glucose Random 87 mg/dL (60-115); Potassium 3.7 mmol/L (3.3-5.1); Sodium 140 mmol/L (135-145); Total Protein 7.7 g/dL (6.5-8.0)
[2023-08-04 22:52] LABS: Influenza A PCR NEGATIVE (Negative); Influenza B PCR NEGATIVE (Negative); Resp Syncy Virus RNA Qual PCR NEGATIVE (Negative); SARS COV2 PCR INHOUSE NEGATIVE (Negative)
[2023-08-04 23:06] LABS: Appearance Urine Clear; Color Urine Yellow; Glucose Urine UA Negative (Negative); Leukocyte Esterase Urine Negative (Negative); Nitrite Urine Negative (Negative); Specific Gravity - Urine >= 1.030 (1.005-1.025); Urine Blood Negative (Negative); Urine Ketones 15 mg/dL (Negative); Urine Protein Negative (Neg-Trace)
[2023-08-04 23:12] LABS: UPreg QC Valid YES; Urine Pregnancy NEGATIVE (NEGATIVE)
[2023-08-05 00:45] VITALS: BP 126/64; PULSE 89; RESP 18; TEMP 37.1; O2SAT 99
== END 2023-08-05 03:20 | disposition left against medical advice (07) ==
PROVIDERS: Emergency Provider Emergency Medicine; PCP Internal Medicine
DX: R11.2 Nausea with vomiting, unspecified (principal); R50.9 Fever, unspecified; R42 Dizziness and giddiness; Z03.818 Encounter for observation for suspected exposure to other biological agents ruled out
CPT/HCPCS: 0241U; 36415; 80053; 81003; 81025; 85025; 87651; 99282; 99283

== ENCOUNTER 2023-08-06 08:31 | Emergency (ER) | payer OTHER, SELFPAY ==
--- NOTE | ~2023-08-06 | XR_ITS ---
EXAMINATION: XR CHEST CLINICAL INFORMATION: Cough for one month COMPARISON: None available. TECHNIQUE: 2 views of the chest were obtained. FINDINGS: No significant abnormality is noted involving the heart, lungs, mediastinum, bony thorax or soft tissues. XR/XR chest 2V IMPRESSION: Unremarkable examination.
[2023-08-06 08:50] VITALS: BP 120/71; PULSE 111; RESP 19; TEMP 36.6; O2SAT 98; BMI 20.4
--- NOTE | 2023-08-06 09:30 | ED_ITS ---
HPI - General Adult General Chief complaint: General Medical Stated complaint: Body aches, abd pain R side Time Seen by Provider: 08/06/23 09:28 Source: patient Mode of arrival: ambulatory Limitations: no limitations History of Present Illness HPI narrative: Patient is a 18-year-old female with history of asthma presenting to the emergency department with complaint of nausea and vomiting which began Thursday into Thursday, states she only vomited once yesterday and has been able to tolerate p.o. intake today. She also states that for the past month she has had a nonproductive cough and shortness of breath. States that she was treated with antibiotics for sinusitis and has been doing breathing treatments but symptoms have persisted. States she has had generalized fatigue and had fever of 100 yesterday. She denies abdominal, back or flank pain. Denies any dysuria, frequency, hematuria or other urinary symptoms. Reports emesis has been nonbloody, nonbilious. Denies chest pain or palpitations. MD complaint: vomiting, cough Onset (ago): month(s) Associated symptoms: fever/chills, malaise and nausea/vomiting Treatments prior to arrival: other Related Data Home Medications ?Medication ?Instructions ?Recorded ?Confirmed albuterol sulfate 90 mcg/actuation 2 puff inhalation Q6H PRN 03/25/23 04/21/23 aerosol inhaler medroxyprogesterone 150 mg/mL 150 mg IM [id number] 03/25/23 04/21/23 intramuscular syringe (Depo-Provera) Previous Rx's ?Medication ?Instructions ?Recorded cholecalciferol (vitamin D3) 125 125 mcg PO DAILY #90 caps 04/21/23 mcg (5,000 unit) capsule acetaminophen 500 mg capsule 1,000 mg (2 x 500 mg) PO Q6H PRN 05/28/23 fever #30 caps famotidine 10 mg tablet (Acid 20 mg (2 x 10 mg) PO BEDTIME #14 05/28/23 Desizing Machine Operator Head End (famotidine)) tabs ondansetron 8 mg disintegrating 8 mg PO Q8H NAUSEA AND VOMITING 05/28/23 tablet #30 tabs albuterol sulfate 90 mcg/actuation 2 puff inhalation Q4-6H PRN 07/04/23 aerosol inhaler shortness of breath or wheezing #6.7 grams doxycycline hyclate 100 mg capsule 100 mg PO BID #14 caps 07/10/23 albuterol sulfate 2.5 mg/0.5 mL 5 mg inhalation Q6H PRN shortness 08/06/23 solution for nebulization of breath or wheezing #30 ea Allergies Allergy/AdvReac Type Severity Reaction Status Date / Time amoxicillin [From Augmentin] Allergy Intermediate Hives Verified 08/06/23 08:53 clavulanic acid Allergy Intermediate Hives Verified 08/06/23 08:53 [From Augmentin] Levaquin AdvReac Severe Nausea and Uncoded 08/06/23 08:53 Vomiting Review of Systems 2 Review of Systems: As per HPI. Yes all other systems are reviewed and are negative Constitutional: Constitutional: Reports as per HPI PMF Past Medical History Medical History Vitamin D deficiency Refused influenza vaccine COVID-19 vaccination refused Hx of suicide attempt Anxiety and depression On Depo-Provera for contraception Engages in vaping Mild intermittent asthma History of pyelonephritis Surgical History History of placement of ear tubes H/O removal of cyst History of hand surgery Family History Family History Father Substance use disorder Mental health disorder Chronic alcoholism Mother Depression Maternal Grandmother Mental health disorder Biventricular congestive heart failure Paternal Grandmother Mental health disorder Paternal Grandfather Diabetes mellitus Social History Social History Housing: Apartment Patient Tobacco Use Status: Never used Tobacco e-Cigarette/Vaping Use: Currently Using Advance Directives: No Current occupational status: employed Current occupation: [employer] Current occupational exposures/hazards: No Cognitive needs: No Hearing needs: No Vision needs: No Physical Exam ED Vital Signs: Vital Signs - 24 hr 08/06/23 08:50 Temperature 98 F Pulse Rate 111 H Respiratory Rate 19 Blood Pressure 120/71 Pulse Oximetry 98 Oxygen Delivery Method Room Air BMI result Body Mass Index 20.4 Vital signs have been reviewed and appear to be correct. Blood pressure normal. Heart rate slightly tachycardic. Respiratory rate normal. Temperature normal. Oxygen saturation normal. Const General: cooperative, healthy appearing and no acute distress Orientation/consciousness: oriented to person, oriented to place, oriented to time and patient oriented x3 Limitations: no limitations HENMT Head: Yes normocephalic and Yes atraumatic Ears: external ears normal, TM's normal bilaterally and EAC's normal General nose exam: Normal external nose present, Normal nasal mucous membranes and turbinates present and Normal septum present Face and sinus: Yes face symmetric Mouth: Normal oral and palatal mucosa present, lip normal, tongue normal, oropharynx normal and moist mucous membranes Throat: Yes posterior oropharynx normal, Yes tonsils normal, Yes uvula midline and No uvular edema Eyes Pupils: Equal, round and reactive pupils present Neck Neck: Yes normal visual inspection, Yes no lymphadenopathy and Yes supple Resp Effort & Inspection: normal respiratory effort and able to speak in complete sentences Auscultation: clear to auscultation bilaterally Cardio Rate: regular rate Rhythm: regular rhythm Heart sounds: S1 normal heart sound present and S2 normal heart sound present GI Inspection: Yes normal to inspection Palpation (GI): Soft to palpation and nontender Auscultation: normoactive bowel sounds General: Yes no CVA tenderness Back/Spine/Pelvis Back: no CVA tenderness Skin General skin exam: elasticity normal and turgor normal Neuro General: oriented to person, oriented to place, oriented to time, patient oriented x3, moves all extremities, no focal motor deficits and CN's II-XI intact bilaterally Cranial nerves: Yes Equal, round and reactive pupils present Cognition (Neuro): normal cognition Extrem General: Yes full ROM, Yes no pedal edema and Yes no calf tenderness Psych Mental Status: mental status grossly normal Affect: normal affect Thought process: Normal thought process present Medical Decision Making Medical Decision Making MDM Narrative: Patient is a 18-year-old female with history of asthma presenting to the emergency department with complaint of nausea and vomiting which began Thursday into Thursday, states she only vomited once yesterday and has been able to tolerate p.o. intake today. On exam patient is awake, A+Ox3, slightly tachycardic, VS otherwise WNL, afebrile, normal neurological exam without focal deficits, physical exam findings as above. Given reported symptoms and physical exam findings, initial differential includes viral illness, mononucleosis. Labs unremarkable, mono negative. X-ray chest notable for no evidence of pneumonia. My interpretation is in agreement with the radiologist's interpretation. Results discussed with patient and all questions answered. Feel patient's symptoms likely began with a viral respiratory infection and recent vomiting due to secondary viral infection. Advised patient to ensure adequate rest, adequate fluid intake. Will send prescription for albuterol for patient's nebulizer she states her albuterol at home is . Instructed patient to follow-up with primary care provider for further evaluation of symptoms and ongoing monitoring. Return precautions discussed at bedside. Patient verbalized understanding of and agreement with plan. Differential Diagnosis Differential Diagnoses: The differential diagnosis associated with the presentation includes As per MDM. Admission/Observation Consideration of admission/observation: Escalation of care including admission/observation considered Patient would have been admitted to the hospital had their work up had any findings where hospital admission was appropriate and their clinical presentation warranted hospital admission. Lab Data [facility] Lab Attestation statement: I reviewed the patient's lab results. As per MDM. 08/06/23 10:30 08/06/23 10:30 Labs: Lab Results 08/06/23 Range/Units 10:30 WBC 9.2 (4.8-10.8) X10*3/uL RBC 5.04 (4.20-5.50) X10*6/uL Hgb 15.1 (12.0-16.0) g/dl Hct 43.2 (37.0-47.0) % MCV 85.7 (80.0-98.0) fL MCH 30.0 (27.0-33.0) pg MCHC 35.0 (31.0-35.0) g/dl RDW 13.0 (11.0-16.0) % Plt Count 250 (160-400) X10*3/uL MPV 9.6 (9.4-12.3) fL Immature Gran % (Auto) 0.3 (0.0-0.4) % Neut % (Auto) 57.3 (45-73) % Lymph % (Auto) 33.1 (20-40) % Loving % (Auto) 5.8 (2-11) % Eos % (Auto) 3.1 (0-4) % Baso % (Auto) 0.4 (0-2) % Lymph # (Auto) 3.0 (1.2-4.9) X10*3/uL Loving # (Auto) 0.5 (0.1-1.2) X10*3/uL Eos # (Auto) 0.3 (0.0-0.4) X10*3/uL Baso # (Auto) 0.0 (0.0-0.2) X10*3/uL Abs Immat Gran (auto) 0.03 (0.00-0.03) X10*3/uL Absolute Neuts (auto) 5.2 (2.0-8.3) x10*3/uL Absolute Nucleated RBC 0.000 (0.0-0.012) X10*3/uL Nucleated RBC % (auto) 0.0 (0.0-0.2) /100WBC Sodium 139 (135-145) mmol/L Potassium 3.9 (3.3-5.1) mmol/L Chloride 112 H (96-108) mmol/L Carbon Dioxide 20 L (22-29) mmol/L Anion Gap 11 L (12-20) BUN 9 (9-16) mg/dL Creatinine 0.72 (0.5-1.4) mg/dL Estim Creat Clear Calc 102.6 Estimated GFR > 60 Random Glucose 87 (60-115) mg/dL Calcium 9.5 (8.4-10.2) mg/dL Total Bilirubin 1.1 H (0.0-1.0) mg/dL AST 20 (5-31) U/L ALT 24 (0-31) U/L Alkaline Phosphatase 70 (39-117) U/L Total Protein 7.7 (6.5-8.0) g/dL Albumin 4.4 (3.5-5.0) g/dL Lipase 11 (8-78) U/L Beta HCG, Quant < 2 mIU/mL Monoscreen Negative (Negative) Independent Interpretation I performed an independent interpretation of an: Plain X-Ray Interpretation: No evidence of pneumonia on chest x-ray Radiology Impression Discussion of test interpretation with radiology: I have reviewed the radiologist's reading. Radiologist Impression: XR/XR chest 2V IMPRESSION: Unremarkable examination. External Record Review External record reviewed: Inpatient record, Office record and Outpatient record Prescription Management I considered prescription management with: Other Discharge Plan Discharge Clinical Impression: Viral illness Patient Disposition: Home, Self-Care Instructions: Viral Syndrome (ED) Additional Instructions: You were evaluated in the emergency department today for vomiting and shortness of breath. Your Covid, flu, and strep tests done yesterday afternoon were all negative. Your chest x-ray did not show evidence of pneumonia. Your mono test was negative. Your symptoms are likely related to a viral illness which will resolve on its own with time and rest. You should ensure adequate fluid intake, and can use Tylenol 650 mg or ibuprofen 600 mg every 6 hours as needed for fever or discomfort. Please follow-up with your primary care provider this week. Return to the emergency department if you develop chest pain, worsening shortness of breath, difficulty swallowing, fever 100.4? F or greater or any other concerning symptoms. Prescriptions: New albuterol sulfate 2.5 mg/0.5 mL solution for nebulization 5 mg inhalation Q6H PRN (Reason: shortness of breath or wheezing) Qty: 30 0RF No Action albuterol sulfate 90 mcg/actuation HFA aerosol inhaler 2 puff inhalation Q4-6H PRN (Reason: shortness of breath or wheezing) Qty: 6.7 0RF albuterol sulfate 90 mcg/actuation HFA aerosol inhaler 2 puff inhalation Q6H PRN medroxyprogesterone [Depo-Provera] 150 mg/mL syringe 150 mg IM [id number] ondansetron 8 mg tablet,disintegrating 8 mg PO Q8H Qty: 30 0RF famotidine [Acid Desizing Machine Operator Head End (famotidine)] 10 mg tablet 20 mg PO BEDTIME Qty: 14 0RF acetaminophen 500 mg capsule 1,000 mg PO Q6H PRN (Reason: fever) Qty: 30 0RF cholecalciferol (vitamin D3) 125 mcg (5,000 unit) capsule 125 mcg PO DAILY Qty: 90 0RF doxycycline hyclate 100 mg capsule 100 mg PO BID Qty: 14 0RF Stand Alone Forms: Work/School Release Print Language: Serbian
[2023-08-06 10:35] LABS: MANUAL DIFF FLAG NO
--- NOTE | 2023-08-06 10:37 | PC.NURSE ---
per request of provider, RT called in regards to tubing for patients home nebs, RT to come speak with patient, tech tim labs, will continue to montior.
[2023-08-06 10:39] LABS: Basophils Percent Auto 0.4 % (0-2); Eosinophils Absolute Auto 0.3 X10*3/uL (0.0-0.4); Eosinophils Percent Auto 3.1 % (0-4); Hematocrit 43.2 % (37.0-47.0); Hemoglobin 15.1 g/dl (12.0-16.0); Imm Gran Abs Auto 0.03 X10*3/uL (0.00-0.03); Imm Gran Pct Auto 0.3 % (0.0-0.4); Lymphocytes Percent Auto 33.1 % (20-40); Mean Corpuscular Volume 85.7 fL (80.0-98.0); Mean Platelet Volume 9.6 fL (9.4-12.3); Monocytes Absolute Auto 0.5 X10*3/uL (0.1-1.2); Monocytes Percent Auto 5.8 % (2-11); Neutrophils Absolute Auto 5.2 x10*3/uL (2.0-8.3); Neutrophils Percent Auto 57.3 % (45-73); Platelet Count 250 X10*3/uL (160-400); Red Blood Count 5.04 X10*6/uL (4.20-5.50); White Blood Count 9.2 X10*3/uL (4.8-10.8)
[2023-08-06 10:55] LABS: Monotest Negative (Negative)
[2023-08-06 11:00] LABS: Alanine Aminotransferase 24 U/L (0-31); Albumin Level 4.4 g/dL (3.5-5.0); Alkaline Phosphatase 70 U/L (39-117); Anion Gap 11 (12-20); Aspartate Amino Transferase 20 U/L (5-31); Bilirubin Total 1.1 mg/dL (0.0-1.0); Blood Urea Nitrogen 9 mg/dL (9-16); Calcium 9.5 mg/dL (8.4-10.2); Carbon Dioxide 20 mmol/L (22-29); Chloride 112 mmol/L (96-108); Creatinine Clr Calc Pharmacy 102.6; Estimated Glomerular Filt Rate > 60; Glucose Random 87 mg/dL (60-115); Lipase 11 U/L (8-78); Potassium 3.9 mmol/L (3.3-5.1); Sodium 139 mmol/L (135-145); Total Protein 7.7 g/dL (6.5-8.0)
[2023-08-06 11:08] LABS: HCG Quantitative < 2 mIU/mL
[2023-08-06 13:26] VITALS: BP 118/78; PULSE 101; RESP 20; TEMP 36.6; O2SAT 98
== END 2023-08-06 13:27 | disposition home or self-care (01) ==
PROVIDERS: Registered Nurse Emergency; Emergency Provider Emergency Medicine; PCP Internal Medicine
DX: B34.9 Viral infection, unspecified (principal); M79.10 Myalgia, unspecified site; R10.11 Right upper quadrant pain; R11.2 Nausea with vomiting, unspecified; R05.9 Cough, unspecified; R10.2 Pelvic and perineal pain; Z79.899 Other long term (current) drug therapy
CPT/HCPCS: 36415; 71046; 80053; 83690; 84702; 85025; 86308; 99282; 99283

== ENCOUNTER 2023-08-26 10:22 | Outpatient (AMB) | payer OTHER, SELFPAY ==
--- NOTE | 2023-08-26 10:24 | MHC.OFFWIV ---
Intake Vital Signs 08/26/23 10:26 Height 5 ft 3 in Weight 120 lb BMI 21.3 BP 110/68 Blood Pressure Location Lt brachial Position Sitting Pulse 105 H Pulse Source Pulse Oximeter Temp 97.4 F Temp Source Temporal Artery Scan Pulse Oximetry (%) 98 Oxygen Delivery Method Room Air Intake Visit Reasons: EP sweating nausea fever Intake Note: pt is here today for sweating nausea fever started 2 days ago Patient Tobacco Use Status: Never used Tobacco Allergies amoxicillin [From Augmentin] Allergy (Intermediate, Verified 08/26/23 10:29) Hives clavulanic acid [From Augmentin] Allergy (Intermediate, Verified 08/26/23 10:29) Hives Levaquin Adverse Reaction (Severe, Uncoded 08/06/23 08:53) Nausea and Vomiting Do you need a note to return to daycare/school/sports/work: No HPI HPI Comments History of Present Illness Details 18 y/o female patient who presents to walk in clinic with c/o URI x 2 days. Reports waking up this morning drenched in sweat and fever of 100.1F. 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 [facility] Medical History Vitamin D deficiency Refused influenza vaccine COVID-19 vaccination refused Hx of suicide attempt Anxiety and depression On Depo-Provera for contraception Engages in vaping Mild intermittent asthma History of pyelonephritis Surgical History History of placement of ear tubes H/O removal of cyst History of hand surgery Family History Father Substance use disorder Mental health disorder Chronic alcoholism Mother Depression Maternal Grandmother Mental health disorder Biventricular congestive heart failure Paternal Grandmother Mental health disorder Paternal Grandfather Diabetes mellitus Social History Housing: Apartment Patient Tobacco Use Status: Never used Tobacco e-Cigarette/Vaping Use: Currently Using Current occupational status: employed Current occupation: [employer] Current occupational exposures/hazards: No Cognitive needs: No Hearing needs: No Vision needs: No Review of Systems Const All systems reviewed & are unremarkable except as noted in HPI and below Physical Exam Vital Signs: BMI result Body Mass Index 21.3 Const General: comfortable and no acute distress Nutritional Appearance: well nourished Orientation/consciousness: patient oriented x3 HEENT Head: Yes normocephalic Ears: external ears normal and TM's normal bilaterally General nose exam: Normal nasal mucous membranes and turbinates present and Nasal discharge present Face and sinus: Yes sinuses nontender Mouth: moist mucous membranes Throat: Yes posterior oropharynx normal Resp Effort & Inspection: normal respiratory effort and able to speak in complete sentences Auscultation: clear to auscultation bilaterally, no crackles, no rales, no rhonchi and no wheezes Cardio Rate: regular rate Rhythm: regular rhythm Neuro General: patient oriented x3 Assessment & Plan Assessment & Plan (1) Upper respiratory infection: Code(s): J06.9 - Acute upper respiratory infection, unspecified Qualifiers: URI type: unspecified viral URI Qualified Code(s): J06.9 - Acute upper respiratory infection, unspecified Plan: - SARs - Rest and hydrate well with warm fluids - Acetaminophen for pain relief - Zofran for N/V - RTC if not better. Orders: Orders SARS-CoV2/FLU/RSV Today J06.9 - Acute upper respiratory infection, unspecified Medications: Refilled ondansetron 8 mg PO Q8H 30 tabs 0RF NAUSEA AND VOMITING J06.9 - Acute upper respiratory infection, unspecified acetaminophen 1,000 mg (2 x 500 mg) PO Q6H PRN 30 caps 0RF fever J06.9 - Acute upper respiratory infection, unspecified Coding Level of Care Code Est Pt Level 3 (19970) Diagnoses Viral upper respiratory tract infection J06.9 URI type: unspecified viral URI Time Spent (min) 15
[2023-08-26 10:26] VITALS: BP 110/68; PULSE 105; TEMP 36.3; O2SAT 98; BMI 21.3
== END 2023-08-26 12:14 | disposition home or self-care (01) ==
PROVIDERS: PCP Internal Medicine; Visit Provider Nurse Practitioner Family
DX: J06.9 Acute upper respiratory infection, unspecified (principal)
CPT/HCPCS: 99213

== ENCOUNTER 2023-08-26 10:43 | Outpatient (REF) | payer OTHER, SELFPAY ==
[2023-08-26 14:09] LABS: Influenza A PCR NEGATIVE (Negative); Influenza B PCR NEGATIVE (Negative); Resp Syncy Virus RNA Qual PCR NEGATIVE (Negative); SARS COV2 PCR INHOUSE NEGATIVE (Negative)
== END 2023-08-26 10:44 | disposition home or self-care (01) ==
LOC: HO.LAB 10:43
PROVIDERS: Visit Provider Nurse Practitioner Family
DX: J06.9 Acute upper respiratory infection, unspecified (principal)
CPT/HCPCS: 0241U

== ENCOUNTER 2023-09-10 14:56 | Outpatient (AMB) | payer OTHER, SELFPAY ==
[2023-09-10 15:36] VITALS: BP 104/64; PULSE 94; TEMP 36.8; O2SAT 99; BMI 20.5
--- NOTE | 2023-09-10 15:36 | A.OFFPC_ITS ---
Vital Signs 09/10/23 15:36 Height 5 ft 3 in Weight 116 lb BMI 20.5 BP 104/64 Blood Pressure Location Lt brachial Position Sitting Pulse 94 Pulse Source Pulse Oximeter Temp 98.2 F Temp Source Oral Pulse Oximetry (%) 99 Oxygen Delivery Method Room Air Intake Visit Reasons: Throwing up/diarrea Intake Note: Pt is here today c/o vomiting and diarrhea x2days Allergies amoxicillin [From Augmentin] Allergy (Intermediate, Verified 09/10/23 15:59) Hives clavulanic acid [From Augmentin] Allergy (Intermediate, Verified 09/10/23 15:59) Hives Levaquin Adverse Reaction (Severe, Uncoded 09/10/23 15:59) Nausea and Vomiting Medication List - Last Reconciled 09/10/23 by Josey Villatoro MD acetaminophen 1,000 mg (2 x 500 mg) PO Q6H PRN albuterol sulfate 90 mcg/actuation 2 puffs inhalation Q4-6H PRN albuterol sulfate 5 mg inhalation Q6H PRN cholecalciferol (vitamin D3) 125 mcg PO DAILY NS medroxyprogesterone (Depo-Provera) 150 mg IM [id number] ondansetron 8 mg PO Q8H Tobacco use date assessed: 09/10/23 Dental Screening Dental Screen Date: 04/21/23 Did you have a dental visit in the last 12 months?: Yes Did you have a dental problem in the last 6 months where you did not have access to dental care?: No Was dental information given to patient?: Patient has dentist HPI Throwing up/diarrea HPI Details 18-year-old lady, here today accompanied by her mother, complaining abdominal discomfort accompanied by nausea and vomiting now with watery stools, no blood in it, present for the last 2 days she states that she has been so nauseated that she has not been able to keep her food down. Has been taking ondansetron which affords only temporary relief. 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 Denies any accompanying fever, no chills, no weakness, no chest pain or shortness of breath reported. [facility] Medical History (Updated 09/13/23 @ 22:10 by Josey Villatoro MD) Vitamin D deficiency Refused influenza vaccine COVID-19 vaccination refused Hx of suicide attempt Anxiety and depression On Depo-Provera for contraception Engages in vaping Mild intermittent asthma History of pyelonephritis Surgical History History of placement of ear tubes H/O removal of cyst History of hand surgery Family History Father Substance use disorder Mental health disorder Chronic alcoholism Mother Depression Maternal Grandmother Mental health disorder Biventricular congestive heart failure Paternal Grandmother Mental health disorder Paternal Grandfather Diabetes mellitus Social History Housing: Apartment Patient Tobacco Use Status: Never used Tobacco e-Cigarette/Vaping Use: Currently Using Current occupational status: employed Current occupation: [employer] Current occupational exposures/hazards: No Cognitive needs: No Hearing needs: No Vision needs: No Questionnaire Thrive Questionnaire Date Thrive assessed: 03/25/23 AUDIT C Alcohol Use Questionnaire (AUDIT-C) 1. How often do you have a drink containing alcohol?: Monthly or less 2. How many drinks containing alcohol do you have on a typical day when you are drinking?: 1 or 2 3. How often do you have six or more drinks on one occasion?: Never Total Score: 1 HARVEY-7 AMB Questionnaire HARVEY-7 Date HARVEY - 7 assessed: 03/25/23 Source: Developed by Drs. Alberto Bejarano, Maricruz Ibanez, Babak Tong and colleagues, with an educational taryn from [employer]. Review of Systems Const Reports no additional complaints Eyes Reports no additional complaints ENT Reports no additional complaints and Denies dysphagia Card Reports no additional complaints Resp Reports no additional complaints GI Denies melena, Reports bloating, Denies hematochezia, Denies dysphagia, Denies heartburn and Denies fecal incontinence Reports no additional complaints Musc Reports no additional complaints Neuro Reports no additional complaints Endo Reports no additional complaints Dano/Lymph Reports no additional complaints Physical exam (Primary Care) Vital Signs: Last Vital Signs Temp 98.2 F 09/10/23 15:36 Pulse 94 09/10/23 15:36 BP 104/64 09/10/23 15:36 Pulse Ox 99 09/10/23 15:36 Oxygen Delivery Method Room Air 09/10/23 15:36 BMI result Body Mass Index 20.5 Tobacco/Smoking Status: Tobacco use Status Tobacco use date assessed 09/10/23 09/10/23 15:42 Patient Tobacco Use Status Never used Tobacco 09/10/23 15:42 e-Cigarette/Vaping Use Currently Using 09/10/23 15:42 Thrive Assessment: Date of Thrive Assessment Date Thrive assessed 03/25/23 09/10/23 15:42 Const Other: Accompanied by mother on this visit General: comfortable, no acute distress, alert and awake Orientation/consciousness: patient oriented x3 [facility] General nose exam: Normal external nose present Face and sinus: Yes face symmetric Mouth: Normal oral and palatal mucosa present, oropharynx normal and moist mucous membranes Eyes General: appearance normal, both eyes and all related structures Neck Neck: Yes normal visual inspection, Yes full ROM, Yes no lymphadenopathy and Yes supple Resp Auscultation: clear to auscultation bilaterally Cardio Other: S1-S2 present regular rate and rhythm GI Inspection: Yes normal to inspection Palpation (GI): Soft to palpation, nontender, no guarding and no pulsatile masses Percussion: Yes tympanic to percussion Auscultation: Hyperactive bowel sounds present Skin General skin exam: no rashes or lesions noted Neuro General: patient oriented x3, gait normal, tone normal, moves all extremities, Normal light touch and pain sensation and no focal motor deficits Extrem General: Yes full ROM, Yes no joint enlargement, Yes no clubbing, cyanosis or edema and Yes normal gait Assessment and Plan Assessment & Plan (1) Diarrhea: Code(s): R19.7 - Diarrhea, unspecified Qualifiers: Diarrhea type: presumed infectious Qualified Code(s): R19.7 - Diarrhea, unspecified (2) Nausea and vomiting in adult patient: Code(s): R11.2 - Nausea with vomiting, unspecified Plan CBC and comprehensive metabolic panel ordered, continue taking ondansetron as needed for episodes of nausea, do a brat diet, avoid dairy, eating spicy foods or greasy foods. Empirically prescribed azithromycin 500 mg per tablet to take 1 tablet once a day for the next 3 days return to clinic if no improvement of symptoms noted after 3 days. Note , excusing her from work given today to the patient Orders: Orders Complete Blood Count Auto Diff 09/10/23 R11.2 - Nausea with vomiting, uns pecified, R19.7 - Diarrhea, unspecified Comprehensive [place]. Panel Fast 09/10/23 R11.2 - Nausea with vomiting, unspecified, R19.7 - Diarrhea, unspecified Medications: New azithromycin For 500 mg dose pack: take 500 mg once daily for 3 days PO 3 tabs 0RF Coding Level of Care Code Est Pt Level 4 (15720) Diagnoses Diarrhea of presumed infectious origin R19.7 Diarrhea type: presumed infectious Nausea and vomiting in adult patient R11.2
== END 2023-09-10 16:37 | disposition home or self-care (01) ==
PROVIDERS: PCP Internal Medicine; Visit Provider Internal Medicine
DX: R19.7 Diarrhea, unspecified (principal); R11.2 Nausea with vomiting, unspecified
CPT/HCPCS: 99214

== ENCOUNTER 2023-09-24 10:02 | Outpatient (REF) | payer OTHER, SELFPAY ==
[2023-09-24 13:48] LABS: MANUAL DIFF FLAG NO
[2023-09-24 13:51] LABS: Basophils Percent Auto 0.4 % (0-2); Eosinophils Absolute Auto 0.3 X10*3/uL (0.0-0.4); Eosinophils Percent Auto 4.1 % (0-4); Hemoglobin 14.6 g/dl (12.0-16.0); Imm Gran Abs Auto 0.01 X10*3/uL (0.00-0.03); Imm Gran Pct Auto 0.1 % (0.0-0.4); Lymphocytes Absolute Auto 3.6 X10*3/uL (1.2-4.9); Mean Corpuscular Volume 88.5 fL (80.0-98.0); Mean Platelet Volume 10.2 fL (9.4-12.3); Monocytes Absolute Auto 0.5 X10*3/uL (0.1-1.2); Monocytes Percent Auto 7.4 % (2-11); Neutrophils Absolute Auto 2.5 x10*3/uL (2.0-8.3); Platelet Count 243 X10*3/uL (160-400); Red Blood Count 4.86 X10*6/uL (4.20-5.50); Red Cell Distribution Width 12.5 % (11.0-16.0); White Blood Count 6.9 X10*3/uL (4.8-10.8)
[2023-09-24 14:16] LABS: Alanine Aminotransferase 71 U/L (0-31); Albumin Level 4.4 g/dL (3.5-5.0); Alkaline Phosphatase 63 U/L (39-117); Anion Gap 12 (12-20); Aspartate Amino Transferase 55 U/L (5-31); Bilirubin Total 0.7 mg/dL (0.0-1.0); Blood Urea Nitrogen 10 mg/dL (9-16); Calcium 9.3 mg/dL (8.4-10.2); Carbon Dioxide 22 mmol/L (22-29); Chloride 109 mmol/L (96-108); Estimated Glomerular Filt Rate > 60; Glucose Fasting 62 mg/dL (60-99); Sodium 139 mmol/L (135-145); Total Protein 7.3 g/dL (6.5-8.0)
== END 2023-09-24 10:03 | disposition home or self-care (01) ==
LOC: HO.HMGCLDS 10:02
PROVIDERS: PCP Internal Medicine; Visit Provider Internal Medicine
DX: R19.7 Diarrhea, unspecified (principal); R11.2 Nausea with vomiting, unspecified
CPT/HCPCS: 36415; 80053; 85025

== ENCOUNTER 2024-12-08 12:26 | Emergency (ER) | payer OTHER, SELFPAY ==
--- NOTE | ~2024-12-08 | CT_ITS ---
CLINICAL HISTORY: Abd pain and tenderness; N V D CT abdomen and pelvis with contrast Comparison: US/SR - US ABDOMEN LIMITED - 12/08/24 13:40 EDT Findings: The lung bases are clear. Unremarkable gallbladder and solid organs. No urolithiasis. No bowel obstruction, pneumoperitoneum, or pneumatosis. Pelvic contents unremarkable. Normal appendix. The bones are intact. IMPRESSION: No acute findings. This document has been electronically signed by: Yuri Greenfield MD on 12/08/2024 21:59:25
--- NOTE | ~2024-12-08 | US_ITS ---
EXAMINATION: US ABDOMEN/GALLBLADDER LIMITED CLINICAL INFORMATION: Right upper quadrant pain.. COMPARISON: None available. TECHNIQUE: Real-time ultrasound of the right upper quadrant abdomen, specifically gallbladder using grayscale and color Doppler technique. FINDINGS: Gallbladder is fluid-filled contracted. No pericholecystic fluid collection or gallbladder wall thickening. Common bile duct measures 3 m. No gross ascites. US/US abdomen limited IMPRESSION: No choledocholithiasis or cholelithiasis. Electronically signed by: Holger Mock MD 12/08/2024 02:08 PM EDT
[2024-12-08 12:39] VITALS: BP 119/59; PULSE 89; RESP 16; TEMP 36.9; O2SAT 99; BMI 21.6
--- NOTE | 2024-12-08 12:40 | ED_ITS ---
HPI - General Adult General Chief complaint: Nausea/Vomiting/Diarrhea Stated complaint: Vomiting, hot flashes Time Seen by Provider: 12/08/24 20:09 Source: patient Mode of arrival: ambulatory Limitations: no limitations History of Present Illness ED Provider: Moody ROSARIO HPI narrative: Patient is a 19-year-old female presenting to the ED for evaluation of intermittent nausea, vomiting, and abdominal pain with associated subjective fevers/hot flashes over the past 2 weeks. The patient denies associated hematochezia, melena, hematemesis, or recent sick contacts or trauma. The patient denies associated chest pain, shortness of breath, cough, pleurisy, near-syncope, or syncope. Patient denies any urinary complaints. Patient is sexually active, denies any vaginal discharge. Patient reports a family history of GERD but does not carry the diagnosis herself, patient was attributing symptoms to possible new onset GERD, attempted Tums without relief. The patient also reports she has been experiencing atraumatic right lower back pain which radiates into her hip, denies pain radiating to the lower leg, denies associated bowel/bladder incontinence, urinary retention, or saddle paresthesias. Related Data Home Medications ?Medication ?Instructions ?Recorded ?Confirmed medroxyprogesterone 150 mg/mL 150 mg IM [id number] 03/2509/10/23 intramuscular syringe (Depo-Provera) Previous Rx's ?Medication ?Instructions ?Recorded cholecalciferol (vitamin D3) 125 125 mcg PO DAILY #90 caps 04/21/23 mcg (5,000 unit) capsule albuterol sulfate 90 mcg/actuation 2 puff inhalation Q 4-6H PRN 07/04/23 aerosol inhaler shortness of breath or wheez ing #6.7 grams albuterol sulfate 2.5 mg/0.5 mL 5 mg inhalation Q6H WI N shortness 08/06/23 solution for nebulization of breath or wheezing #30 ea acetaminophen 500 mg capsule 1,000 mg (2 x 500 mg) PO Q6H PRN 08/26/23 fever #30 caps ondansetron 8 mg disintegrating 8 mg PO Q8H NAUSEA AND VOMITING 08/26/23 tablet #30 tabs azithromycin 500 mg tablet See Rx Instructions PO .COM PLEX #3 09/10/23 tabs famotidine 20 mg tablet (Pepcid) 20 mg PO BID 14 days #28 tabs 12/08/24 omeprazole 20 mg capsule,delayed 20 mg PO DAILY #14 ca ps 12/08/24 release Allergies Allergy/AdvReac Type Severity Reaction Status Date / Time amoxicillin (From Augmentin) Allergy Intermediate Hives Verified 12/08/24 12:43 clavulanic acid (From Allergy Intermediate Hives Verified 12/08/24 12:43 Augmentin) Levaquin AdvReac Severe Nausea and Uncoded 09/10/23 15:59 Vomiting Review of Systems 2 Review of Systems: Yes all other systems are reviewed and are negative [facility] Past Medical History Medical History (Updated 12/08/24 @ 23:01 by Moody Whatley PA-C) Vitamin D deficiency Refused influenza vaccine COVID-19 vaccination refused Hx of suicide attempt Anxiety and depression On Depo-Provera for contraception Engages in vaping Mild intermittent asthma History of pyelonephritis Surgical History History of placement of ear tubes H/O removal of cyst History of hand surgery Family History Family History Father Substance use disorder Mental health disorder Chronic alcoholism Mother Depression Maternal Grandmother Mental health disorder Biventricular congestive heart failure Paternal Grandmother Mental health disorder Paternal Grandfather Diabetes mellitus Social History Social History Housing: Apartment Unable to assess alcohol history related to: Unknown Patient Tobacco Use Status: Never used Tobacco e-Cigarette/Vaping Use: Currently Using Use of substances other than those prescribed or required for medical reasons: Unknown Advance Directives: No Advance Directives Information Provided: No Do you have a plan to hurt others: No Plan Patient : No Current occupational status: employed Current occupation: [employer] Current occupational exposures/hazards: No Cognitive needs: No Hearing needs: No Vision needs: No Physical Exam ED Vital Signs: Vital Signs - 24 hr 12/08/24 12:39 12/08/24 19:45 12/08/24 21:55 Temperature 98.5 F 98.9 F 98.2 F Pulse Rate 89 87 92 Respiratory Rate 16 16 18 Blood Pressure 119/59 L 122/69 120/62 Pulse Oximetry 99 97 99 Oxygen Delivery Method Room Air Room Air Room Air BMI result Body Mass Index 21.6 CONSTITUTIONAL: The patient appears non-toxic, well nourished and in no acute distress. Vital signs as documented. HEAD: Atraumatic, normocephalic. EYES: EOMs grossly intact, pupils equal, conjunctiva clear, no exudate. ENT: Nares patent, no discharge. Airway patent, no audible stridor, visible mucosa is pink and moist without noted lesions. NECK: Trachea is midline, no obvious masses or gross abnormalities. CHEST: Symmetric movement, normal appearance. LUNGS: LS present and CTAB, no w/r/r. Non-labored work of breathing. CARDIAC: Regular Rhythm, S1/S2 appreciated, no murmurs, rubs or gallops. ABDOMEN: Abdomen soft x4 quadrants, mild tenderness to palpation of the right upper quadrant and bilateral lower quadrants, negative rebound, negative Rovsing's, negative Ibarra's, no palpable masses or organomegaly. Negative CVAT bilaterally. BACK: No midline spinal tenderness or crepitus, no contusion or evidence of injury. : Deferred. EXTREMITIES: Normal tone, moves all extremities spontaneously without reported pain. No obvious acute injury or deformity noted. NEURO: Alert and oriented x3, CN II-XII appear grossly intact. Cerebellar Functioning grossly intact. No obvious sensory or motor deficits. Speech clear and appropriate. PSYCH: normal affect, appropriate eye contact, fluid speech, with appropriate response to questioning. No reported suicidality or homicidality. SKIN: Warm, dry, color appropriate, normal turgor. No rashes noted. Course Course Course Narrative: This is an RME: Additional HPI, ROS, PE not included below will be deferred to primary provider. RME assessment and note performed by: Isabell Giraldo PA-C This is a [id number], with a hx of anxiety, depression, bipolar, who presents to the ER with complaints of intermittent hot and cold flashes x 2 weeks, nausea and vomiting. Report that she thought she was experiencing acid reflux. Reporting RUQ pain and lower abdominal pain. reporting right lower back pain. LMP unknown, on depo-provera. She is sexually active. TTP in the RUQ, and diffusely in lower abdomen. No rebound or guarding. Endorsing diarrhea Plan: Labs, UA, US Medications Administered Discontinued Medications Generic Name Dose Route Start Last Admin Trade Name Bismarkq PRN Reason Stop Dose Admin Al Hydroxide/Mg Hydroxide 30 ml 12/08/24 22:44 12/08/24 23:03 Magnesium Hydrox/Alum Hydrox 30 Ml Oral.Susp PO 12/08/24 22:45 30 ml ONCE ONE Administration Famotidine 20 mg 12/08/24 22:44 12/08/24 23:00 Famotidine 20 Mg Tablet PO 12/08/24 22:45 20 mg ONCE ONE Administration Sodium Chloride 1,000 mls @ 999 mls/hr 12/08/24 20:15 12/08/24 21:59 Ns IV 12/08/24 21:15 Infused .Q1H1M DEYSI Infusion Iohexol 100 ml 12/08/24 20:57 12/08/24 20:57 Iohexol 350 Mg/Ml 100 Ml Infus..Btl IV 12/08/24 20:58 85 ml ONCE ONE Administration Lidocaine HCl 15 ml 12/08/24 22:44 12/08/24 23:03 Lidocaine Hcl Viscous 2 % 15 Ml Solution PO 12/08/24 22:45 15 ml ONCE ONE Administration Medical Decision Making Medical Decision Making MDM Narrative: 8:12 PM 12/08/2024 (Baldev ROSARIO): Patient is a 19-year-old female presenting to the ED for evaluation of intermittent nausea, vomiting, and abdominal pain with associated subjective fevers/hot flashes over the past 2 weeks. The patient denies associated hematochezia, melena, hematemesis, or recent sick contacts or trauma. The patient denies associated chest pain, shortness of breath, cough, pleurisy, near-syncope, or syncope. Patient denies any urinary complaints. Patient is sexually active, denies any vaginal discharge. Patient reports a family history of GERD but does not carry the diagnosis herself, patient was attributing symptoms to possible new onset GERD, attempted Tums without relief. The patient also reports she has been experiencing atraumatic right lower back pain which radiates into her hip, denies pain radiating to the lower leg, denies associated bowel/bladder incontinence, urinary retention, or saddle paresthesias. The patient's exam demonstrates tenderness to palpation of the right upper quadrant and bilateral lower quadrants. Patient was sent for laboratory evaluation and right upper quadrant ultrasound during triage. The patient's right upper quadrant ultrasound shows no acute pathology. The patient's laboratory evaluation shows no leukocytosis, anemia, electrolyte abnormality, or CIELO. Patient's LFTs are mildly abnormal with ALT 73, AST 133, and T bili 1.3, patient admits since starting 19 she has been drinking 1-2 drinks most days but not every day, denies any concerns for developing dependency, denies cravings, drinking alone, tremors, or drinking when waking. Urinalysis is negative for acute infection. The patient will provided IV fluid hydration, and we will be sent for CT abdomen and pelvis to further evaluate possible causes of tenderness to palpation. 10:44 PM 12/08/2024 (Baldev ROSARIO): Patient's CT abdomen and pelvis is negative for acute intra-abdominal pathology. Patient will be treated with a GI cocktail and reassessed. Admission/Observation Consideration of admission/observation: Escalation of care including admission/observation considered Lab Data MDM Lab Attestation statement: I reviewed the patient's lab results. 12/08/24 13:22 12/08/24 13:22 Labs: Lab Results 12/08/24 Range/Units 13:22 WBC 8.9 (4.8-10.8) X10*3/uL RBC 4.69 (4.20-5.50) X10*6/uL Hgb 14.2 (12.0-16.0) g/dl Hct 40.5 (37.0-47.0) % MCV 86.4 (80.0-98.0) fL MCH 30.3 (27.0-33.0) pg MCHC 35.1 H (31.0-35.0) g/dl RDW 12.2 (11.0-16.0) % Plt Count 231 (160-400) X10*3/uL MPV 9.7 (9.4-12.3) fL Immature Gran % (Auto) 0.2 (0.0-0.4) % Neut % (Auto) 46.8 (45-73) % Lymph % (Auto) 44.1 H (20-40) % Falls % (Auto) 7.7 (2-11) % Eos % (Auto) 0.8 (0-4) % Baso % (Auto) 0.4 (0-2) % Lymph # (Auto) 3.9 (1.2-4.9) X10*3/uL Falls # (Auto) 0.7 (0.1-1.2) X10*3/uL Eos # (Auto) 0.1 (0.0-0.4) X10*3/uL Baso # (Auto) 0.0 (0.0-0.2) X10*3/uL Abs Immat Gran (auto) 0.02 (0.00-0.03) X10*3/uL Absolute Neuts (auto) 4.2 (2.0-8.3) x10*3/uL Absolute Nucleated RBC 0.000 (0.0-0.012) X10*3/uL Nucleated RBC % (auto) 0.0 (0.0-0.2) /100WBC Sodium 139 (135-145) mmol/L Potassium 3.7 (3.3-5.1) mmol/L Chloride 109 H (96-108) mmol/L Carbon Dioxide 19 L (22-29) mmol/L Anion Gap 15 (12-20) BUN 10 (9-16) mg/dL Creatinine 0.67 (0.5-1.4) mg/dL Estim Creat Clear Calc 109.8 Estimated GFR > 60 Random Glucose 83 (60-115) mg/dL Calcium 9.2 (8.4-10.2) mg/dL Magnesium 1.9 (1.6-2.6) mg/dL Total Bilirubin 1.3 H (0.0-1.0) mg/dL Direct Bilirubin 0.4 (0.0-0.5) mg/dL AST 133 H (5-31) U/L ALT 73 H (0-31) U/L Alkaline Phosphatase 56 (39-117) U/L Total Protein 7.6 (6.5-8.0) g/dL Albumin 4.9 (3.5-5.0) g/dL Lipase 11 (8-78) U/L Beta HCG, Quant < 2 mIU/mL Urine Color Yellow Urine Appearance Clear Urine pH 7.5 (5.0-9.0) Ur Specific [place] 1.020 (1.005-1.025) Urine Protein Negative (Neg-Trace) mg/dL Urine Glucose (UA) Negative (Negative) mg/dL Urine Ketones 15 (Negative) mg/dL Urine Blood Negative (Negative) Urine Nitrite Negative (Negative) Ur Leukocyte Esterase Negative (Negative) Radiology Impression Discussion of test interpretation with radiology: I have reviewed the radiologist's reading. Radiologist Impression: EXAMINATION: US ABDOMEN/GALLBLADDER LIMITED CLINICAL INFORMATION: Right upper quadrant pain.. COMPARISON: None available. TECHNIQUE: Real-time ultrasound of the right upper quadrant abdomen, specifically gallbladder using grayscale and color Doppler technique. FINDINGS: Gallbladder is fluid-filled contracted. No pericholecystic fluid collection or gallbladder wall thickening. Common bile duct measures 3 m. No gross ascites. US/US abdomen limited IMPRESSION: No choledocholithiasis or cholelithiasis. Electronically signed by: Holger Mock MD 12/08/2024 02:[address] abdomen and pelvis with contrast Comparison: US/SR - US ABDOMEN LIMITED - 12/08/24 13:40 EDT Findings: The lung bases are clear. Unremarkable gallbladder and solid organs. No urolithiasis. No bowel obstruction, pneumoperitoneum, or pneumatosis. Pelvic contents unremarkable. Normal appendix. The bones are intact. IMPRESSION: No acute findings. This document has been electronically signed by: Yuri Greenfield MD on 12/08/2024 21:59:25 Discharge Plan Discharge Clinical Impression: Gastritis Patient Disposition: Home, Self-Care Instructions: Gastritis (ED), Diet for Stomach Ulcers and Gastritis (ED) Additional Instructions: Thank you for choosing [facility]'s Emergency Department for your care today. Thankfully your laboratory evaluation, urinalysis, ultrasound, and CT today showed no evidence of an acute emergent process requiring admission to the hospital or continued ED observation, and it is safe to discharge you home. Your symptoms may be related to inflammation of your stomach, a condition known as gastritis. This can be worsened by alcohol use, smoking/vaping, spicy foods, large meals, eating to closely to bedtime, and by eating acidic foods. Please take Pepcid and omeprazole for the next 2 weeks as prescribed. Please stay well hydrated and get plenty of rest. Please read the attached information to learn how to change your diet to avoid worsening symptoms. Please follow up with your primary care physician for re-evaluation, additional management of your symptoms, and continued preventative care. If you do not have a primary care physician, please call the [facility] at [phone] to establish a new primary care physician. While waiting to establish your new primary care physician, you can call our Walk-in [facility] at [phone] for non-emergency needs. Please return to the emergency department if you develop a severe or sudden change in your symptoms, a fever over 100.4 that does not improve with Tylenol or Ibuprofen, recurrent vomiting, or any other new or worsening symptoms or concerns. Prescriptions: New famotidine [Pepcid] 20 mg tablet 20 mg PO BID 14 Days Qty: 28 0RF omeprazole 20 mg capsule,delayed release(DR/EC) 20 mg PO DAILY Qty: 14 0RF No Action albuterol sulfate 2.5 mg/0.5 mL solution for nebulization 5 mg inhalation Q6H PRN (Reason: shortness of breath or wheezing) Qty: 30 0RF albuterol sulfate 90 mcg/actuation HFA aerosol inhaler 2 puff inhalation Q4-6H PRN (Reason: shortness of breath or wheezing) Qty: 6.7 0RF medroxyprogesterone [Depo-Provera] 150 mg/mL syringe 150 mg IM [id number] azithromycin 500 mg tablet See Rx Instructions PO .COMPLEX Qty: 3 0RF Rx Instructions: For 500 mg dose pack: take 500 mg once daily for 3 days PO cholecalciferol (vitamin D3) 125 mcg (5,000 unit) capsule 125 mcg PO DAILY Qty: 90 0RF acetaminophen 500 mg capsule 1,000 mg PO Q6H PRN (Reason: fever) Qty: 30 0RF ondansetron 8 mg tablet,disintegrating 8 mg PO Q8H Qty: 30 0RF Referrals: Catie Adkins PA [Primary Care Provider, Family Practice] Clinical Impression: Gastritis Print Language: Sami
[2024-12-08 13:28] LABS: MANUAL DIFF FLAG NO
[2024-12-08 13:30] LABS: Hematocrit 40.5 % (37.0-47.0); Hemoglobin 14.2 g/dl (12.0-16.0); Imm Gran Abs Auto 0.02 X10*3/uL (0.00-0.03); Imm Gran Pct Auto 0.2 % (0.0-0.4); Lymphocytes Absolute Auto 3.9 X10*3/uL (1.2-4.9); Mean Corpuscular HGB Conc 35.1 g/dl (31.0-35.0); Mean Corpuscular Hemoglobin 30.3 pg (27.0-33.0); Mean Corpuscular Volume 86.4 fL (80.0-98.0); NRBC Abs Auto 0.000 X10*3/uL (0.0-0.012); NRBC Pct Auto 0.0 /100WBC (0.0-0.2); Platelet Count 231 X10*3/uL (160-400); Red Blood Count 4.69 X10*6/uL (4.20-5.50); White Blood Count 8.9 X10*3/uL (4.8-10.8)
[2024-12-08 13:31] LABS: Appearance Urine Clear; Glucose Urine UA Negative (Negative); PH 7.5 (5.0-9.0); Specific Gravity - Urine 1.020 (1.005-1.025)
[2024-12-08 13:51] LABS: Alanine Aminotransferase 73 U/L (0-31); Albumin Level 4.9 g/dL (3.5-5.0); Alkaline Phosphatase 56 U/L (39-117); Anion Gap 15 (12-20); Aspartate Amino Transferase 133 U/L (5-31); Blood Urea Nitrogen 10 mg/dL (9-16); Calcium 9.2 mg/dL (8.4-10.2); Carbon Dioxide 19 mmol/L (22-29); Chloride 109 mmol/L (96-108); Creatinine Clr Calc Pharmacy 109.8; Estimated Glomerular Filt Rate > 60; Lipase 11 U/L (8-78); Magnesium 1.9 mg/dL (1.6-2.6); Potassium 3.7 mmol/L (3.3-5.1); Sodium 139 mmol/L (135-145); Total Protein 7.6 g/dL (6.5-8.0)
--- NOTE | 2024-12-08 19:09 | PC.NURSE ---
Patient and mom approaching triage door asking for update/ when they will be brought back. Informed patient we cannot guarantee wait times, apologized for the long wait, informed patient she should be pulled back relatively soon as she is at the end of the wait list. Patient and mom verbalized understanding, returned to waiting room.
[2024-12-08 19:45] VITALS: BP 122/69; PULSE 87; RESP 16; TEMP 37.2; O2SAT 97
--- NOTE | 2024-12-08 19:47 | MHC.EDTECH ---
Patient is drinking powerade
[2024-12-08] MEDS: iohexoL 350 MG/ML 100 ML INFUS..BTL IV (20:57)
[2024-12-08 21:55] VITALS: BP 120/62; PULSE 92; RESP 18; TEMP 36.8; O2SAT 99
[2024-12-08] MEDS: Magnesium Hydrox/Alum Hydrox 30 ML ORAL.SUSP PO (23:03)
[2024-12-08] MEDS: Lidocaine HCl Viscous 2 % 15 ML SOLUTION PO (23:03)
[2024-12-08 23:30] VITALS: BP 120/62; PULSE 92; RESP 18; TEMP 36.8; O2SAT 99
== END 2024-12-08 23:31 | disposition home or self-care (01) ==
PROVIDERS: Physician Assistant Medical; Emergency Provider Emergency Medicine
DX: K29.70 Gastritis, unspecified, without bleeding (principal); R10.11 Right upper quadrant pain; R11.2 Nausea with vomiting, unspecified; R50.9 Fever, unspecified
CPT/HCPCS: 36415; 74177; 76705; 80048; 80076; 81003; 83690; 83735; 84702; 85025; 96360; 99284; Q9967

== ENCOUNTER → 2024-12-08 12:43 | Outpatient (BNV) | payer OTHER, SELFPAY | PROVIDERS: Visit Provider Radiology Diagnostic Radiology | DX: R10.11 Right upper quadrant pain (principal) | CPT/HCPCS: 74177; 76705 ==

== ENCOUNTER 2025-03-20 19:16 | Emergency (ER) | payer OTHER, SELFPAY ==
[2025-03-20 19:18] VITALS: BP 126/79; PULSE 127; RESP 20; TEMP 36.8; O2SAT 97; BMI 21.3
--- NOTE | 2025-03-20 19:18 | ED_ITS ---
HPI - Animal Bite General Chief Complaint: Animal Bite Stated Complaint: cat attack - nonstop bleeding Time Seen by Provider: 03/20/25 20:01 Source: patient Mode of arrival: ambulatory Limitations: no limitations History of Present Illness ED Provider: Dr. Sanjuana Turner HPI narrative: Patient comes to the emergency room complaining of being attacked by her cat. Patient states that she has had this cat in her house for about a year. The cat has not had any immunizations. the patient states that tomorrow is the cats 1st visit with the bed. The cat is an indoor/ outdoor cat. According to the patient, today she lowered her arm to let the cat smell her, and out of no where, the cat started biting and scratching her right arm and with it's teeth, it latched on her right arm. This was an unprovoked attack. Related Data Home Medications ?Medication ?Instructions ?Recorded ?Confirmed medroxyprogesterone 150 mg/mL 150 mg IM [id number] 03/2509/10/23 intramuscular syringe (Depo-Provera) Previous Rx's ?Medication ?Instructions ?Recorded cholecalciferol (vitamin D3) 125 125 mcg PO DAILY #90 caps 04/21/23 mcg (5,000 unit) capsule albuterol sulfate 90 mcg/actuation 2 puff inhalation Q 4-6H PRN 07/04/23 aerosol inhaler shortness of breath or wheez ing #6.7 grams albuterol sulfate 2.5 mg/0.5 mL 5 mg inhalation Q6H AK N shortness 08/06/23 solution for nebulization of breath or wheezing #30 ea acetaminophen 500 mg capsule 1,000 mg (2 x 500 mg) PO Q6H PRN 08/26/23 fever #30 caps ondansetron 8 mg disintegrating 8 mg PO Q8H NAUSEA AND VOMITING 08/26/23 tablet #30 tabs azithromycin 500 mg tablet See Rx Instructions PO .COM PLEX #3 09/10/23 tabs famotidine 20 mg tablet (Pepcid) 20 mg PO BID 14 days #28 tabs 12/08/24 omeprazole 20 mg capsule,delayed 20 mg PO DAILY #14 ca ps 12/08/24 release doxycycline hyclate 100 mg tablet 100 mg PO BID #14 ta bs 03/20/25 ibuprofen 600 mg tablet 600 mg PO Q8H PRN fever or p ain 03/20/25 #20 tabs metronidazole 500 mg tablet 500 mg PO Q8H 7 days #21 t abs 03/20/25 Allergies Allergy/AdvReac Type Severity Reaction Status Date / Time amoxicillin (From Augmentin) Allergy Intermediate Hives Verified 03/20/25 19:20 clavulanic acid (From Allergy Intermediate Hives Verified 03/20/25 19:20 Augmentin) Levaquin AdvReac Severe Nausea and Uncoded 03/20/25 19:20 Vomiting Review of Systems Review of Systems: Constitutional : No Weight loss, No Fever, No Chills, No Night Sweats, No Fatigue, No Malaise ENT/Mouth : No Hearing loss, No Ear Pain, No Nasal Congestion, No Sinus Pain, No Hoarseness, No sore throat, No Rhinorrhea, No Swallowing Difficulty Eyes: No Eye Pain, No Swelling, No Redness, No Foreign Body, No Discharge, No Vision Changes Cardiovascular : No Chest Pain, No SOB, No Dyspnea on Exertion, No Orthopnea, No Edema, No Palpitations Respiratory : No Cough, No Sputum, No Wheezing, No Smoke Exposure, No Dyspnea Gastrointestinal : No Nausea, No Vomiting, No Diarrhea, No Constipation, No abdominal Pain, No Hematochezia, No Melena Genitourinary : no irregular bleeding, No Dysuria, No Urinary Frequency, No H ematuria, No Urinary Incontinence, No Urgency, No Flank Pain, No Urinary Flow Changes, No Hesitancy Musculoskeletal : No joint pain, No Myalgias, No Joint Swelling Skin : Complaining of multiple scratches and bites to the right forearm Neuro : No Weakness, No Numbness, No Paresthesias, No Loss of Consciousness, No Dizziness, No Headache Psych : No Anxiety/Panic, No Depression, No SI/HI/AH/VH, No Social Issues, Heme/Lymph: No Bruising, No Bleeding,No Lymphadenopathy Endocrine : No Polyuria, No Polydipsia, No Temperature Intolerance PMFSH Past Medical History Medical History (Updated 03/20/25 @ 22:01 by Sanjuana Turner MD) Vitamin D deficiency Refused influenza vaccine COVID-19 vaccination refused Hx of suicide attempt Anxiety and depression On Depo-Provera for contraception Engages in vaping Mild intermittent asthma History of pyelonephritis Surgical History History of placement of ear tubes H/O removal of cyst History of hand surgery Family History Family History Father Substance use disorder Mental health disorder Chronic alcoholism Mother Depression Maternal Grandmother Mental health disorder Biventricular congestive heart failure Paternal Grandmother Mental health disorder Paternal Grandfather Diabetes mellitus Social History Social History Housing: Apartment Patient Tobacco Use Status: Never used Tobacco e-Cigarette/Vaping Use: Currently Using Advance Directives: No Advance Directives Information Provided: No Current occupational status: employed Current occupation: [employer] Current occupational exposures/hazards: No Cognitive needs: No Hearing needs: No Vision needs: No Physical Exam ED Vital Signs: Vital Signs - 24 hr 03/20/25 19:18 03/20/25 20:11 Temperature 98.3 F 98.8 F Pulse Rate 127 H 96 Respiratory Rate 20 Blood Pressure 126/79 111/74 Pulse Oximetry 97 98 Oxygen Delivery Method Room Air Room Air BMI result Body Mass Index 21.3 Course Course Course Narrative: This is an RME: Additional HPI, ROS, PE not included below will be deferred to primary provider. RME assessment and note performed by: Isabell Giraldo PA-C This is a [id number] who presents to the ER with a complaint of cat bites. Reports that her own cat that is about 1 year old bit her and latched onto her. She has not had the rabies series, unsure of last tetanus. Multiple superficial abrasions noted, wounds needs cleansing, +/- rabies/tdap vaccination Medications Administered Discontinued Medications Generic Name Dose Route Start Last Admin Trade Name Freq PRN Reason Stop Dose Admin Diphtheria/Tetanus/Acell Pertussis 0.5 ml 03/20/25 20:15 03/20/25 21:26 Diphth,Pertus(Acell),Tet Adult 0.5 Ml Syringe IM 03/20/25 20:16 0.5 ml .ONCE ONE Administration Doxycycline Monohydrate 100 mg 03/20/25 20:24 03/20/25 21:11 Doxycycline Monohydrate 100 Mg Capsule PO 03/20/25 20:25 100 mg ONCE ONE Administration Metronidazole 500 mg 03/20/25 20:24 03/20/25 21:11 Metronidazole 500 Mg Tablet PO 03/20/25 20:25 500 mg ONCE ONE Administration Rabies Immune Globulin 1,088.62 unit 03/20/25 20:15 03/20/25 21:37 Rabies Immune Globulin/Pf 300 Unit/Ml Vial 20 unit/kg (1088.62 unit) 03/20/25 20:16 1,088.62 unit IM Administration ONCE ONE Rabies Vaccine 1 ml 03/20/25 20:15 03/20/25 21:29 Rabies Vaccine (Pcec)/Pf 1 Ml Vial IM 03/20/25 20:16 1 ml .ONCE ONE Administration Medical Decision Making Medical Decision Making MDM Narrative: Patient received Tdap booster, doxycycline, metronidazole, rabies immune globulin and rabies vaccine Patient instructed to follow-up with her primary care physician, I discussed with our community health counselor the patient will need immunizations for rabies. patient tolerated well the immunizations Discharge Plan Discharge Clinical Impression: Cat bite Patient Disposition: Home, Self-Care Instructions: Animal Bite (ED), Rabies (ED) Additional Instructions: Please follow-up with your primary care physician tomorrow. If you have any worsening or new symptoms, please return to the emergency room or call 911 Prescriptions: New doxycycline hyclate 100 mg tablet 100 mg PO BID Qty: 14 0RF metronidazole 500 mg tablet 500 mg PO Q8H 7 Days Qty: 21 0RF ibuprofen 600 mg tablet 600 mg PO Q8H PRN (Reason: fever or pain) Qty: 20 0RF No Action albuterol sulfate 2.5 mg/0.5 mL solution for nebulization 5 mg inhalation Q6H PRN (Reason: shortness of breath or wheezing) Qty: 30 0RF albuterol sulfate 90 mcg/actuation HFA aerosol inhaler 2 puff inhalation Q4-6H PRN (Reason: shortness of breath or wheezing) Qty: 6.7 0RF famotidine [Pepcid] 20 mg tablet 20 mg PO BID 14 Days Qty: 28 0RF omeprazole 20 mg capsule,delayed release(DR/EC) 20 mg PO DAILY Qty: 14 0RF medroxyprogesterone [Depo-Provera] 150 mg/mL syringe 150 mg IM [id number] azithromycin 500 mg tablet See Rx Instructions PO .COMPLEX Qty: 3 0RF Rx Instructions: For 500 mg dose pack: take 500 mg once daily for 3 days PO cholecalciferol (vitamin D3) 125 mcg (5,000 unit) capsule 125 mcg PO DAILY Qty: 90 0RF acetaminophen 500 mg capsule 1,000 mg PO Q6H PRN (Reason: fever) Qty: 30 0RF ondansetron 8 mg tablet,disintegrating 8 mg PO Q8H Qty: 30 0RF Stand Alone Forms: Work/School Release Print Language: Malian
[2025-03-20 20:11] VITALS: BP 111/74; PULSE 96; TEMP 37.1; O2SAT 98
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
--- OUTSIDE RECORDS SUMMARY | 2025-03-20 20:40 | XMS_ITS | Clinical Summary ---
Author Organization [facility] Address [address] [place] [address] [address] [place] [phone] Phone Care Team Providers Care Administrative Manager Name Role Phone Catie Adkins Primary Care Provider [phone] Encounters Date Type Department Care Team Description 02/23/2025 Transcribe Orders [facility] [address] [place] [address] [phone] Catie Adkins PA from Last 3 Months Immunizations Immunization Administration Dates Next Due COVID-19 (Pre-02/16) Pfizer Vaccine, mRNA, PF ,08/22/2020 Social History Tobacco Use Types Packs/Day Years Used Date Smoking Tobacco: Never Assessed Education Answer Date Recorded Are you interested in more education? Not on jaylen e 08/22/2022 Are you concerned about learning? Not on file 08/22/2022 No 08/22/2022 No 08/22/2022 Digital Access Answer Date Recorded No 09/19/2022 No 09/19/2022 No 09/19/2022 Reliable internet access at home? Not on file 09/19/2022 Device with a working camera? Not on file Comments Unknown Sex and Gender Information Value Date Recorded Sex Assigned at Not on file Legal Sex Female 8:44 PM EDT Gender Identity Not on file Sexual Orientation Not on file Plan of Treatment Upcoming Encounters Date Type Department Care Team (Late st Contact Info) Description 04/12/2025 2:30 PM EST Procedure visit [facility] [address] [place] [address] [phone] Doris Damon MD [address] [place] [address] Orthopedics & Sports Medicine, [facility] [place] [address] [email or web address] Health Maintenance Due Date Last Done Comments Adult Td,Tdap Booster 2003 MMR VACCINES (1 of 1 - Standard series) 07/13/2004 COMBINED DTaP,Tdap,Td (1 - Tdap) 07/13/2010 DEPRESSION SCREENING 2015 SMOKING Hx and SMOKELESS TOBACCO SCREENING 07/13/2016 HEPATITIS A VACCINES (2 of 2 - 2-dose series) 04/12/2019 10/11/2018 CHLAMYDIA SCREENING 2019 MENINGOCOCCAL VACCINES (B) (1 of 2 - Standard) 2019 ADOLESCENT UNIVERSAL LIPID SCREENING 07/13/2020 05/04/2019 HEPATITIS C SCREENING 07/13/2021 HIV ONE-TIME SCREENING (18-65 YEARS) 07/13/2021 PAP SMEAR 07/13/2024 INFLUENZA VACCINE (#1) 2024 0, 02/21/2019, 06/01/2018, Additional history exists COVID-19 VACCINE ( season) 2024 09/12/2020, 08/22/2020 HPV VACCINES Completed 06/01/2018, 09/30/2017 MENINGOCOCCAL VACCINES (ACWY) Completed 03/14/2020, 10/11/2018 HIB VACCINES Aged Out No longer eligi ble based on patient's age to complete this topic PNEUMOCOCCAL VACCINES (0-49 years) Aged Out No longer eligible based on patient's age to complete this topic Medical Devices Not on file Procedures Procedure Name Priority Date/Time Associated Diagnosis Comments LIPID PANEL Routine 05/04/2019 7:54 AM EST Eating disorder, unspecified type from Last 3 Months or Most Recently Relevant to Health Maintenance Results * Lipid panel (05/04/2019 7:54 AM EST) HDL 39 mg/dL [facility] Comment: Interpretation <40 mg/dL: Low HDL cholesterol (major risk factor for CHD) Greater than or equal to 60 mg/dL: High HDL cholesterol ( negative risk factor for CHD) HDL - cholesterol is affected by a number of factors, e.g. smoking, excerise, hormones, sex and age. CHOLESTEROL 143 0 - 169 mg/dL [facility] Comment: Pediatric Reference Ranges for 2 to 18 years Acceptable: Less than 170 mg/dL Borderline: 170 - 199 mg/dL High: Greater than or equal to 200 mg/dL TRIGLYCERIDES 80 30 - 160 mg/dL [facility] LDL 88 50 - 129 mg/dL [facility] Comment: LDL levels in terms of risk for coronary heart disease: <100 mg/dL: Optimal 100-129 mg/dL: Near or above optimal 130-159 mg/dL: Borderline high 160-189 mg/dL: High >190 mg/dL: Very High CARDIAC RISK RATIO 3.7 3.3 - 4.[address] [facility] Blood 05/04/2019 7:54 AM EST 05/04/2019 8:08 AM EST Kourtney Santos NP LAB BLOOD BKR ORDERABLES Final Result [facility] [address] [place] [address] from Last 3 Months or Most Recently Relevant to Health Maintenance [place] [address] [place] [address] HMO [employer] HMO POS EPO [facility] H[facility] A[employer] HMO POS EPO HMO A[employer] HMO POS EPO [facility] HMO [employer] HMO POS EPO HMO [facility] HMO O O Member Subscriber Plan / Payer (Ef fective 2017-Present) Name:Sanjuana Paredes Relation to Subscriber:Child Name:NOMAN HOSKINS Date of :1979 (Home) Address: [address] [place] [address] Payer ID:Not on file Type:O Address: [place] [id number] [place] [address] [place], [place] [address]O [facility] HMO Care Teams Administrative Manager Relationship Specialty Start Date End Date Catie Adkins PA [address] [place] [phone] PCP - General Physician Oil Boiler 03/17/25 Additional Source Comments The information contained in this document represents components of the legal health record. It is not the complete legal health record.[facility]
--- OUTSIDE RECORDS SUMMARY | 2025-03-20 20:40 | XMS_ITS | Encounter Summary ---
Author Organization [facility] Address [address] [place] [address] Phone Care Team Providers Care Intensive Care Medicine Specialist Name Role Phone Samanta Mann NP Primary Care Provider [phone] Catie Adkins Primary Care Provider [phone] Encounter Details Date Type Department Care Team (Late st Contact Info) Description 05/04/2019 Transcribe Orders [address] [address] Kourtney Santos, SAMANTHA [address] [place] [id number] Eating disorder, unspecified type (Primary Dx) Social History Tobacco Use Types Packs/Day Years Used Date Smoking Tobacco: Never Assessed Comments Unknown Sex and Gender Information Value Date Recorded Sex Assigned at Not on file Legal Sex Female 8:44 PM EDT Gender Identity Not on file Sexual Orientation Not on file documented as of this encounter Plan of Treatment Upcoming Encounters Date Type Department Care Team (Late st Contact Info) Description 04/12/2025 2:30 PM EST Procedure visit [facility] [address] [place] [address] [phone] Doris Damon MD [address] [place] [address] [facility] [place], [place] [phone] [email or web address] documented as of this encounter Results * Carbon dioxide (bicarbonate) (05/04/2019 7:54 AM EST) CO2 22 21 - 35 mmol/L [facility] Blood 05/04/2019 7:54 AM EST 05/04/2019 8:08 AM EST Kourtney Santos FARM CREW LEADER LAB BLOOD ORDERABLES Renata l Result Performing Organization Address [facility] Co de Phone Number [address] [address] * Chloride (05/04/2019 7:54 AM EST) CHLORIDE 102 96 - 108 mmol/L [facility] Blood 05/04/2019 7:54 AM EST 05/04/2019 8:08 AM EST Kourtney Santos FARM CREW LEADER LAB BLOOD ORDERABLES Renata l Result Performing Organization Address [facility] de Phone Number [address] [address] * (ABNORMAL) 25-OH vitamin D (05/04/2019 7:54 AM EST) 25 OH VIT D (TOTAL) 25(L) 30 - 60 ng/mL [facility] Blood 05/04/2019 7:54 AM EST 05/04/2019 8:08 AM EST Kourtney Santos FARM CREW LEADER LAB BLOOD BKR ORDERABLES Final Result Performing Organization Address [facility] de Phone Number [address] [address] * Zinc (05/04/2019 7:54 AM EST) ZINC 0.97 0.66 - 1.10 mcg/mL [facility] [address] Comment: (NOTE) ADDITIONAL INFORMATION This test was developed and its performance characteristics determined by [facility] in a manner consistent with CLIA requirements. This test has not been cleared or approved by the U.S. Food and Drug Administration. Blood 05/04/2019 7:54 AM EST 05/04/2019 8:08 AM EST Kourtney Santos NP LAB BLOOD ORDERABLES Renata l Result Performing Organization Address [facility] Co de Phone Number [facility] [address] [place] [address] * Vitamin B12 (05/04/2019 7:54 AM EST) VITAMIN B12 274 232 - 1,245 pg/mL [facility] Blood 05/04/2019 7:54 AM EST 05/04/2019 8:08 AM EST Kourtney Santos NP LAB BLOOD BKR ORDERABLES Final Result Performing Organization Address [facility] de Phone Number [address] [address] * (ABNORMAL) Urine culture (05/04/2019 7:54 AM EST) Special Requests None 05/04/2019 7:55 AM EST [facility] GRAM STAIN Rare GRAM POSITIVE RODS , Rare GRAM POSITIVE COCCI 05/05/2019 11:47 AM EST [facility] Urine Culture >100,000 colony forming units per mL MIXED ANAT (3 OR MORE COLONY TYPES) Culture indicates contamination . Please resubmit if necessary.(A) 05/06/2019 8:17 AM EST [facility] Urine (Urine) 05/04/2019 7:5 4 AM EST 05/04/2019 8:09 AM EST Kourtney Santos NP LAB MICROBIOLOGY CULTURE ORDERABLES Final Result Performing Organization Address [facility] Co de Phone Number [address] [address] * Toxicology screen, urine (05/04/2019 7:54 AM EST) URINE CANNABINOIDS NONE DETECTED NONE DETECTED [facility] Comment:Cutoff: 50 ng/mL URINE COCAINE METAB NONE DETECTED NONE DETECTED [facility] Comment:Cutoff: 300 ng/mL URINE AMPHETAMINES NONE DETECTED NONE DETECTED [facility] Comment:Cutoff: 1000 ng/mL URINE METHADONE NONE DETECTED NONE DETECTED [facility] Comment:Cutoff: 300 ng/mL URINE OPIATES NONE DETECTED NONE DETECTED [facility] Comment:Cutoff: 300 ng/mL URINE PHENCYCLIDINE NONE DETECTED NONE DETECTED [facility] Comment:Cutoff: 25 ng/mL URINE OXYCODONE NONE DETECTED NONE DETECTED [facility] Comment:Cutoff: 300 ng/ml URINE BARBITURATES NONE DETECTED NONE DETECTED [facility] Comment:Cutoff: 200 ng/mL URINE BENZODIAZEPINE NONE DETECTED NONE DETECTED [facility] Comment: Cutoff: 200 ng/mL INTERPRETATION FOR TOXICOLOGY PANEL: These results are unconfirmed and should be used for Medical Treatment purposes only. Urine (Urine) 05/04/2019 7:5 4 AM EST 05/04/2019 8:08 AM EST Kourtney Santos NP LAB URINE ORDERABLES Renata perez Result [facility] [address] [place] [address] * Lipid panel (05/04/2019 7:54 AM EST) HDL 39 mg/dL [facility] Comment: Interpretation <40 mg/dL: Low HDL cholesterol (major risk factor for CHD) Greater than or equal to 60 mg/dL: High HDL cholesterol ( negative risk factor for CHD) HDL - cholesterol is affected by a number of factors, e.g. smoking, excerise, hormones, sex and age. CHOLESTEROL 143 0 - 169 mg/dL [facility] Comment: Pediatric Reference Ranges for 2 to 18 years Acceptable: Less than 170 mg/dL Borderline: 170 - 199 mg/dL High: Greater than or equal to 200 mg/dL TRIGLYCERIDES 80 30 - 160 mg/dL [facility] LDL 88 50 - 129 mg/dL [facility] Comment: LDL levels in terms of risk for coronary heart disease: <100 mg/dL: Optimal 100-129 mg/dL: Near or above optimal 130-159 mg/dL: Borderline high 160-189 mg/dL: High >190 mg/dL: Very High CARDIAC RISK RATIO 3.7 3.3 - 4.4 [facility] Blood 05/04/2019 7:54 AM EST 05/04/2019 8:08 AM EST Kourtney Santos NP LAB BLOOD BKR ORDERABLES Final Result Performing Organization Address City/[facility]/ZIP Co de Phone Number [address] [address] * (ABNORMAL) Lipase (05/04/2019 7:54 AM EST) LIPASE 15(L) 16 - 63 U/L [facility] Blood 05/04/2019 7:54 AM EST 05/04/2019 8:08 AM EST Kourtney Santos NP LAB BLOOD BKR ORDERABLES Final Result Performing Organization Address [facility] Co de Phone Number [address] [address] * Iron and iron binding capacity (05/04/2019 7:54 AM EST) IRON 76 30 - 160 ug/dL [facility] IRON BINDING CAPACITY 316 228 - 428 ug/dL [facility] TRANSFERRIN SATURAT. 24 15 - 50 % [facility] Blood 05/04/2019 7:54 AM EST 05/04/2019 8:08 AM EST Kourtney Santos NP LAB BLOOD BKR ORDERABLES Final Result Performing Organization Address City/[facility]/ZIP Co de Phone Number [address] [address] * HCG (Quantitative, Blood) (05/04/2019 7:54 AM EST) HCG BETA <0.1 mIU/mL [facility] Comment: Interpretation: FEMALE: Negative: Less than or equal to 1 mIU/mL. 4 Weeks Post Conception: 9.5 - 750 mIU/mL. 12 Weeks Post Conception: [id number] - [id number] mIU/mL. Blood 05/04/2019 7:54 AM EST 05/04/2019 8:08 AM EST Kourtney Santos FARM CREW LEADER LAB BLOOD BKR ORDERABLES Final Result [address] [address] * Folate (05/04/2019 7:54 AM EST) FOLIC ACID 6.8 4.2 - 19.9 ng/mL [facility] Blood 05/04/2019 7:54 AM EST 05/04/2019 8:08 AM EST Kourtney Santos NP LAB BLOOD BKR ORDERABLES Final Result [address] [address] * Ferritin (05/04/2019 7:54 AM EST) FERRITIN 31 13 - 150 ug/L [facility] Blood 05/04/2019 7:54 AM EST 05/04/2019 8:08 AM EST Kourtney Santos NP LAB BLOOD BKR ORDERABLES Final Result Performing Organization Address City/[facility]/ZIP Co de Phone Number [address] [address] * Amylase (05/04/2019 7:54 AM EST) AMYLASE 75 28 - 100 U/L [facility] Blood 05/04/2019 7:54 AM EST 05/04/2019 8:08 AM EST us Kourtney Santos NP LAB BLOOD BKR ORDERABLES Final Result [facility] [address] [place] [address] * (ABNORMAL) CBC and differential (05/04/2019 7:54 AM EST) WBC 6.86 3.40 - 11.20 K/uL [facility] RBC 4.88(H) 3.80 - 4.80 M/uL [facility] HGB 13.6 12.0 - 15.0 g/dL [facility] HCT 40.2 36.0 - 46.0 % [facility] PLT 313 130 - 400 K/uL [facility] MCV 82.4 79.0 - 98.0 fL [facility] MCH 27.9 25.0 - 35.0 pg [facility] MCHC 33.8 31.0 - 37.0 g/dL [facility] RDW 12.2 10.8 - 14.6 % [facility] MPV 10.1 9.4 - 12.4 fl [facility] NRBC 0.00 0.00 /100 WBCs [facility] ABSOLUTE NRBC 0.00 0.00 K/uL [facility] DIFF METHOD Auto [facility] NEUTS 32.4(L) 45.30 - 77.70 % [facility] LYMPHS 54.7(H) 12.30 - 39.70 % [facility] MONOS 7.7 4.10 - 12.80 % [facility] EOS 4.2 0 - 7.2 % [facility] BASOS 0.9 0 - 2.80 % [facility] Granulocytes, immature (%) 0.1 0.0 - 0.9 % [facility] ABSOLUTE NEUTS 2.22 1.40 - 7.70 K/uL [facility] ABSOLUTE LYMPHS 3.75(H) 0.60 - 3.20 K/uL [facility] ABSOLUTE MONOS 0.53 0.11 - 0.59 K/uL [facility] ABSOLUTE EOS 0.29 0.01 - 0.50 K/uL [facility] ABSOLUTE BASOS 0.06 0.00 - 0.08 K/uL [facility] Granulocytes, immature 0.01 0.00 - 0.05 K/uL [facility] Blood 05/04/2019 7:54 AM EST 05/04/2019 8:08 AM EST Kourtney Santos FARM CREW LEADER LAB BLOOD BKR ORDERABLES Final Result [address] [address] * Potassium (05/04/2019 7:54 AM EST) POTASSIUM 4.2 3.3 - 5.1 mmol/L [facility] Blood 05/04/2019 7:54 AM EST 05/04/2019 8:08 AM EST Kourtney Santos FARM CREW LEADER LAB BLOOD BKR ORDERABLES Final Result Performing Organization Address City/[facility]/ZIP Co de Phone Number [address] [address] * Sodium (05/04/2019 7:54 AM EST) SODIUM 139 133 - 146 mmol/L [facility] Blood 05/04/2019 7:54 AM EST 05/04/2019 8:08 AM EST Kourtney Santos FARM CREW LEADER LAB BLOOD BKR ORDERABLES Final Result Performing Organization Address City/[facility]/ZIP Co de Phone Number [address] [address] * Glucose (05/04/2019 7:54 AM EST) GLUCOSE 88 70 - 99 mg/dL [facility] Blood 05/04/2019 7:54 AM EST 05/04/2019 8:08 AM EST us Kourtney Santos FARM CREW LEADER LAB BLOOD BKR ORDERABLES Final Result Performing Organization Address [facility]/ZIP Co de Phone Number [address] [address] * TSH (05/04/2019 7:54 AM EST) TSH 1.80 0.27 - 4.20 uIU/mL [facility] Blood 05/04/2019 7:54 AM EST 05/04/2019 8:08 AM EST us Kourtney Santos FARM CREW LEADER LAB BLOOD BKR ORDERABLES Final Result Performing Organization Address [facility] Phone Number [address] [address] * Magnesium (05/04/2019 7:54 AM EST) MAGNESIUM 2.0 1.6 - 2.6 mg/dL [facility] Blood 05/04/2019 7:5 4 AM EST 05/04/2019 8:08 AM EST us Kourtney Santos FARM CREW LEADER LAB BLOOD BKR ORDERABLES Final Result Performing Organization Address [facility] de Phone Number [address] [address] * Phosphorus (05/04/2019 7:54 AM EST) PHOSPHORUS 4.5 2.7 - 4.5 mg/dL [facility] Blood 05/04/2019 7:54 AM EST 05/04/2019 8:08 AM EST us Kourtney Santos FARM CREW LEADER LAB BLOOD BKR ORDERABLES Final Result Performing Organization Address [facility] Co de Phone Number [address] [address] * Calcium (05/04/2019 7:54 AM EST) CALCIUM 9.7 8.4 - 10.3 mg/dL [facility] Blood 05/04/2019 7:54 AM EST 05/04/2019 8:08 AM EST Kourtney Santos FARM CREW LEADER LAB BLOOD BKR ORDERABLES Final Result [address] [address] * LFTs (hepatic panel) (05/04/2019 7:54 AM EST) ALKALINE PHOSPHATASE 97 39 - 117 U/L [facility] TOTAL BILIRUBIN 0.6 0.0 - 1.0 mg/dL [facility] DIRECT BILIRUBIN <0.2 0 - 0.3 mg/dL [facility] Bilirubin (Indirect) NOT CALCULATED 0 - 1.5 mg/dL [facility] AST 20 0 - 37 U/L [facility] ALT 14 0 - 40 U/L [facility] TOTAL PROTEIN 7.6 6.5 - 8.0 g/dL [facility] ALBUMIN 4.5 3.9 - 4.8 g/dL [facility] GLOBULIN 3.1 1 - 4.8 g/dL [facility] A/G Ratio 1.45 1.00 - 4.80 RATIO [facility] Blood 05/04/2019 7:54 AM EST 05/04/2019 8:08 AM EST Kourtney Santos NP LAB BLOOD BKR ORDERABLES Final Result [address] [address] * Creatinine/eGFR (05/04/2019 7:54 AM EST) CREATININE 0.70 0.5 - 1.5 mg/dL [facility] EGFR Estimated GFR not calculated for patients <18 years old. mL/min/1. 73m2 [facility] Blood 05/04/2019 7:54 AM EST 05/04/2019 8:08 AM EST us Kourtney Sandeep Santos FARM [employer]W LEADER LAB BLOOD BKR ORDERABLES Final Result Performing Organization Address City/[facility]/ZIP Co de Phone Number [address] [address] * BUN (05/04/2019 7:54 AM EST) BUN 8 6 - 19 mg/dL [facility] Blood 05/04/2019 7:54 AM EST 05/04/2019 8:08 AM EST Kourtney Santos FARM CREW LEADER LAB BLOOD BKR ORDERABLES Final Result Performing Organization Address [facility] Co de Phone Number [address] [address] documented in this encounter Visit Diagnoses Diagnosis Eating disorder, unspecified type- Primary documented in this encounter Care Teams Intensive Care Medicine Specialist Relationship Specialty Start Date End Date Samanta Mann NP PCP - General Family Medicine 05/04/19 03/16/25 Catie Adkins PA [address] [place] [phone] PCP - General Physician Infant Toddler Lead Teacher 03/17/25 documented as of this encounter Additional Source Comments The information contained in this document represents components of the legal health record. It is not the complete legal health record.[facility]
--- OUTSIDE RECORDS SUMMARY | 2025-03-20 20:40 | XMS_ITS | Encounter Summary ---
Author Organization [facility] Address [address] [place] [address] Drive [address] [place] [address] Phone Care Team Providers Care Route Delivery Manager Name Role Phone Samanta Mann APPLIANCE ADJUSTER Primary Care Provider [phone] Catie Adkins Primary Care Provider + [phone] Encounter Details Date Type Department Care Team (Latest Contact Info) Description 06/03/2019 Transcribe Orders [address] [address] Yolie Spencer NP [address] [place] [phone] Eating disorder, unspecified type (Primary Dx) Social [...] Description 04/12/2025 2:30 PM EST Procedure visit [facility] Sports Medicine [address] [place] [address] [id number] Doris Damon MD [address] [place] [address] [facility] [place], [place] [phone] [email or web address] documented as of this encounter Results * Carbon dioxide (bicarbonate) (06/03/2019 7:52 AM EST) CO2 22 21 - 35 mmol/L [facility] Blood 06/03/2019 7:52 AM EST 06/03/2019 8:02 AM EST us Yolie Spencer APPLIANCE ADJUSTER LAB BLOOD ORDERABLES Final Resul t Performing Organization Address [facility] de Phone Number [address] [address] * Chloride (06/03/2019 7:52 AM EST) CHLORIDE 103 96 - 108 mmol/L [facility] Blood 06/03/2019 7:52 AM EST 06/03/2019 8:02 AM EST us Yolie Spencer APPLIANCE ADJUSTER LAB BLOOD ORDERABLES Final Resul t Performing Organization Address [facility] Phone Number [address] [address] * (ABNORMAL) Lipase (06/03/2019 7:52 AM EST) LIPASE 11(L) 16 - 63 U/L [facility] Blood 06/03/2019 7:52 AM EST 06/03/2019 8:02 AM EST us Yolie Spencer APPLIANCE ADJUSTER LAB BLOOD BKR ORDERABLES Final R esult Performing Organization Address [facility] Co de Phone Number [address] [address] * Amylase (06/03/2019 7:52 AM EST) AMYLASE 79 28 - 100 U/L [facility] Blood 06/03/2019 7:52 AM EST 06/03/2019 8:02 AM EST us Yolie Spencer APPLIANCE ADJUSTER LAB BLOOD BKR ORDERABLES Final R esult Performing Organization Address [facility] de Phone Number [address] [address] * Potassium (06/03/2019 7:52 AM EST) POTASSIUM 4.2 3.3 - 5.1 mmol/L [facility] Blood 06/03/2019 7:52 AM EST 06/03/2019 8:02 AM EST us Yolie Spencer NP LAB BLOOD BKR ORDERABLES Final R esult Performing Organization Address City/State/[facility] Co de Phone Number [address] [address] * Sodium (06/03/2019 7:52 AM EST) SODIUM 140 133 - 146 mmol/L [facility] Blood 06/03/2019 7:52 AM EST 06/03/2019 8:02 AM EST Yolie Spencer NP LAB BLOOD BKR ORDERABLES Final R [facility] Performing Organization Address City/[facility] Co de Phone Number [address] [address] * Glucose (06/03/2019 7:52 AM EST) GLUCOSE 83 70 - 99 mg/dL [facility] Blood 06/03/2019 7:52 AM EST 06/03/2019 8:02 AM EST oYlie Spencer NP LAB BLOOD BKR ORDERABLES Final R esult Performing Organization Address City/[facility] Co de Phone Number [address] [address] * Magnesium (06/03/2019 7:52 AM EST) MAGNESIUM 2.1 1.6 - 2.6 mg/dL [facility] Blood 06/03/2019 7:52 AM EST 06/03/2019 8:02 AM EST Yolie Spencer APPLIANCE ADJUSTER LAB BLOOD BKR ORDERABLES Final R esult [address] [address] * Phosphorus (06/03/2019 7:52 AM EST) PHOSPHORUS 4.0 2.7 - 4.5 mg/dL [facility] Blood 06/03/2019 7:52 AM EST 06/03/2019 8:02 AM EST Yolie Spencer APPLIANCE ADJUSTER LAB BLOOD BKR ORDERABLES Final R [facility] Performing Organization Address [facility] Co de Phone Number [address] [address] * Calcium (06/03/2019 7:52 AM EST) Pathologist [facility] CALCIUM 9.4 8.4 - 10.3 mg/dL [facility] Blood 06/03/2019 7:52 AM EST 06/03/2019 8:02 AM EST Yolie Spencer APPLIANCE ADJUSTER LAB BLOOD BKR ORDERABLES Final R [facility] Performing Organization Address [facility] Co de Phone Number [address] [address] * LFTs (hepatic panel) (06/03/2019 7:52 AM EST) ALKALINE PHOSPHATASE 94 39 - 117 U/L [facility] TOTAL BILIRUBIN 0.6 0.0 - 1.0 mg/dL [facility] DIRECT BILIRUBIN <0.2 0 - 0.3 mg/dL [facility] Bilirubin (Indirect) NOT CALCULATED 0 - 1.5 mg/dL [facility] AST 30 0 - 37 U/L [facility] ALT 14 0 - 40 U/L [facility] TOTAL PROTEIN 7.5 6.5 - 8.0 g/dL [facility] ALBUMIN 4.3 3.9 - 4.8 g/dL [facility] GLOBULIN 3.2 1 - 4.8 g/dL [facility] A/G Ratio 1.34 1.00 - 4.80 RATIO [facility] Blood 06/03/2019 7:52 AM EST 06/03/2019 8:02 AM EST us Yolie Spencer APPLIANCE ADJUSTER LAB BLOOD BKR ORDERABLES Final R esult Performing Organization Address City/[facility]/ZIP Co de Phone Number [address] [address] * Creatinine/eGFR (06/03/2019 7:52 AM EST) CREATININE 0.70 0.5 - 1.5 mg/dL [facility] EGFR Estimated GFR not calculated for patients <18 years old. mL/min/1. 73m2 [facility] Blood 06/03/2019 7:52 AM EST 06/03/2019 8:02 AM EST us Yolie Spencer NP LAB BLOOD BKR ORDERABLES Final R esult Performing Organization Address [facility]/ZIP Co de Phone Number [address] [address] * BUN (06/03/2019 7:52 AM EST) BUN 10 6 - 19 mg/dL [facility] Blood 06/03/2019 7:52 AM EST 06/03/2019 8:02 AM EST us Yolie Spencer APPLIANCE ADJUSTER LAB BLOOD BKR ORDERABLES Final R esult Performing Organization Address City/[facility] Co de Phone Number [address] [address] documented in this encounter Visit Diagnoses Diagnosis Eating disorder, unspecified type- Primary documented in this encounter Care Teams Route Delivery Manager Relationship Specialty Start Date End Date Samanta Mann NP PCP - General Family Medicine 05/04/19 03/16/25 Catie Adkins PA [address] [place] [phone] PCP - General Physician Photogrammetrist 03/17/25 documented as of this encounter Additional Source Comments The information contained in this document represents components of the legal health record. It is not the complete legal health record.[facility]
[2025-03-20] MEDS: Diphth,Pertus(ACell),Tet Adult 0.5 ML SYRINGE IM (21:26)
[2025-03-20] MEDS: Rabies Vaccine (PCEC)/PF 1 ML VIAL IM (21:29)
[2025-03-20 22:00] VITALS: BP 111/74; PULSE 96; TEMP 37.1; O2SAT 98
[2025-03-20 22:39] VITALS: BP 115/85; PULSE 85; RESP 16; TEMP 37.1; O2SAT 98
== END 2025-03-20 22:41 | disposition home or self-care (01) ==
PROVIDERS: Emergency Provider Emergency Medicine
DX: S41.151A Open bite of right upper arm, initial encounter (principal); M79.601 Pain in right arm; W55.01XA Bitten by cat, initial encounter; Y93.9 Activity, unspecified; Y99.8 Other external cause status; Y92.9 Unspecified place or not applicable; Z79.899 Other long term (current) drug therapy; Z23 Encounter for immunization; Z29.14 Encounter for prophylactic rabies immune globulin; Z20.3 Contact with and (suspected) exposure to rabies
CPT/HCPCS: 90375; 90471; 90472; 90675; 90715; 96372; 99284

== ENCOUNTER 2025-03-23 20:03 | Emergency (ER) | payer OTHER, SELFPAY ==
--- NOTE | 2025-03-23 20:05 | ED_ITS ---
HPI - General Adult General Stated complaint: Animal Bite/needs 2 vaccine Time Seen by Provider: 03/23/25 20:06 Source: patient, RN notes reviewed and old records reviewed Mode of arrival: ambulatory Limitations: no limitations History of Present Illness ED Provider: Venancio THOMPSON narrative: Patient is a 19y/o F seen in this ED on 03/20 for a cat bite and started on rabies series presenting for her second rabies vaccine of the series. Patient states that she was supposed to get the day 3 rabies vaccine at 10 but had to work and would get in trouble if she called out. She called the infusion center and was advised to present to the ED. Denies any new symptoms since first seen. MD complaint: rabies vaccine Related Data Home Medications ?Medication ?Instructions ?Recorded ?Confirmed medroxyprogesterone 150 mg/mL 150 mg IM [id number] 03/2509/10/23 intramuscular syringe (Depo-Provera) Previous Rx's ?Medication ?Instructions ?Recorded cholecalciferol (vitamin D3) 125 125 mcg PO DAILY #90 caps 04/21/23 mcg (5,000 unit) capsule albuterol sulfate 90 mcg/actuation 2 puff inhalation Q 4-6H PRN 07/04/23 aerosol inhaler shortness of breath or wheez ing #6.7 grams albuterol sulfate 2.5 mg/0.5 mL 5 mg inhalation Q6H TX N shortness 08/06/23 solution for nebulization of breath or wheezing #30 ea acetaminophen 500 mg capsule 1,000 mg (2 x 500 mg) PO Q6H PRN 08/26/23 fever #30 caps ondansetron 8 mg disintegrating 8 mg PO Q8H NAUSEA AND VOMITING 08/26/23 tablet #30 tabs azithromycin 500 mg tablet See Rx Instructions PO .COM PLEX #3 09/10/23 tabs famotidine 20 mg tablet (Pepcid) 20 mg PO BID 14 days #28 tabs 12/08/24 omeprazole 20 mg capsule,delayed 20 mg PO DAILY #14 ca ps 12/08/24 release doxycycline hyclate 100 mg tablet 100 mg PO BID #14 ta bs 03/20/25 ibuprofen 600 mg tablet 600 mg PO Q8H PRN fever or p ain 03/20/25 #20 tabs metronidazole 500 mg tablet 500 mg PO Q8H 7 days #21 t abs 03/20/25 Allergies Allergy/AdvReac Type Severity Reaction Status Date / Time amoxicillin (From Augmentin) Allergy Intermediate Hives Verified 03/23/25 20:07 clavulanic acid (From Allergy Intermediate Hives Verified 03/23/25 20:07 Augmentin) Levaquin AdvReac Severe Nausea and Uncoded 03/23/25 20:07 Vomiting Review of Systems Review of Systems: as per hpi Yes all other systems are reviewed and are negative Constitutional: Constitutional: Reports as per HPI [facility] Past Medical History Medical History (Updated 03/23/25 @ 20:13 by Aurea Craft NP) Vitamin D deficiency Refused influenza vaccine COVID-19 vaccination refused Hx of suicide attempt Anxiety and depression On Depo-Provera for contraception Engages in vaping Mild intermittent asthma History of pyelonephritis Surgical History History of placement of ear tubes H/O removal of cyst History of hand surgery Family History Family History Father Substance use disorder Mental health disorder Chronic alcoholism Mother Depression Maternal Grandmother Mental health disorder Biventricular congestive heart failure Paternal Grandmother Mental health disorder Paternal Grandfather Diabetes mellitus Social History Social History Housing: Apartment Alcohol intake: never Patient Tobacco Use Status: Never used Tobacco e-Cigarette/Vaping Use: Currently Using Current occupational status: employed Current occupation: [employer] Current occupational exposures/hazards: No Cognitive needs: No Hearing needs: No Vision needs: No Physical Exam ED Vital Signs: Vital signs have been reviewed and appear to be correct. Blood pressure normal. Heart rate normal. Respiratory rate normal. Temperature normal. Oxygen saturation normal. Const General: cooperative, healthy appearing and no acute distress Orientation/consciousness: oriented to person, oriented to place, oriented to time and patient oriented x3 Limitations: no limitations HENMT Head: Yes normocephalic and Yes atraumatic Ears: external ears normal General nose exam: Normal external nose present Face and sinus: Yes face symmetric Mouth: oropharynx normal and moist mucous membranes Throat: Yes uvula midline Eyes Pupils: Equal, round and reactive pupils present Neck Neck: Yes normal visual inspection and Yes supple Resp Effort & Inspection: normal respiratory effort and able to speak in complete sentences Auscultation: clear to auscultation bilaterally Cardio Rate: regular rate Rhythm: regular rhythm Heart sounds: S1 normal heart sound present and S2 normal heart sound present GI Palpation (GI): Soft to palpation and nontender Auscultation: normoactive bowel sounds General: Yes no CVA tenderness Back/Spine/Pelvis Back: no CVA tenderness Skin General skin exam: elasticity normal and turgor normal Neuro General: oriented to person, oriented to place, oriented to time, patient oriented x3, moves all extremities, no focal motor deficits and CN's II-XI intact bilaterally Cranial nerves: Yes Equal, round and reactive pupils present Cognition (Neuro): normal cognition Extrem General: Yes full ROM, Yes no pedal edema and Yes no calf tenderness Psych Mental Status: mental status grossly normal Affect: normal affect Thought process: Normal thought process present Medical Decision Making Medical Decision Making [facility] Narrative: Patient is a 19y/o F seen in this ED on 03/20 for a cat bite and started on rabies series presenting for her second rabies vaccine of the series. On exam patient is awake, A+Ox3, VS WNL, afebrile, normal neurological exam without focal deficits, physical exam findings as above. Given reported symptoms and physical exam findings, initial differential includes but is not limited to rabies exposure. Vaccine ordered and given in the ED. Patient understands that she can receive remaining vaccines through the infusion center. Return precautions discussed. Patient verbalized understanding of and agreement with plan. Differential Diagnosis Differential Diagnoses: The differential diagnosis associated with the presentation includes as per [facility] External Record Review External record reviewed: Inpatient record, Office record and Outpatient record Discharge Plan Discharge Clinical Impression: Rabies vaccine administered Patient Disposition: Home, Self-Care Instructions: Rabies Vaccine (By injection) Additional Instructions: You were given the second rabies vaccine (day 3) in the series in the ED today. Follow up with the infusion center to schedule your remaining vaccinations. Return to the ED with any new or concerning symptoms. Prescriptions: No Action albuterol sulfate 2.5 mg/0.5 mL solution for nebulization 5 mg inhalation Q6H PRN (Reason: shortness of breath or wheezing) Qty: 30 0RF doxycycline hyclate 100 mg tablet 100 mg PO BID Qty: 14 0RF metronidazole 500 mg tablet 500 mg PO Q8H 7 Days Qty: 21 0RF ibuprofen 600 mg tablet 600 mg PO Q8H PRN (Reason: fever or pain) Qty: 20 0RF albuterol sulfate 90 mcg/actuation HFA aerosol inhaler 2 puff inhalation Q4-6H PRN (Reason: shortness of breath or wheezing) Qty: 6.7 0RF famotidine [Pepcid] 20 mg tablet 20 mg PO BID 14 Days Qty: 28 0RF omeprazole 20 mg capsule,delayed release(DR/EC) 20 mg PO DAILY Qty: 14 0RF medroxyprogesterone [Depo-Provera] 150 mg/mL syringe 150 mg IM [id number] azithromycin 500 mg tablet See Rx Instructions PO .COMPLEX Qty: 3 0RF Rx Instructions: For 500 mg dose pack: take 500 mg once daily for 3 days PO cholecalciferol (vitamin D3) 125 mcg (5,000 unit) capsule 125 mcg PO DAILY Qty: 90 0RF acetaminophen 500 mg capsule 1,000 mg PO Q6H PRN (Reason: fever) Qty: 30 0RF ondansetron 8 mg tablet,disintegrating 8 mg PO Q8H Qty: 30 0RF Print Language: Micronesian
[2025-03-23 20:06] VITALS: BP 117/56; PULSE 110; RESP 16; TEMP 36.8; O2SAT 97; BMI 21.3
[2025-03-23] MEDS: Rabies Vaccine (PCEC)/PF 1 ML VIAL IM (20:11)
--- OUTSIDE RECORDS SUMMARY | 2025-03-23 20:14 | XMS_ITS | Clinical Summary ---
Author Organization [facility] Address [address] [place] [address] Care Team Providers Care Hand Inspector Name Role Phone Samanta Mann Primary Care Provider [phone] Source Comments Please note that some or [...] so, obtain the minor's consent prior to disclosure.[facility] Allergies Active Allergy Reactions Criticality Noted Date [...] AG/AB, 4TH GEN NON-REACT HARESH NON-REACT HARESH Indexing Comment: HIV-1 antigen and HIV-1/HIV-2 antibodies were [...] purpose. For additional information please refer to http://[email or web address]/faq/XML324 (This link is being provided for informational/ educational purposes only.) The performance of this assay has not been clinically validated in patients less than 2 years old. Blood specimen (specimen) 10/11/2019 11:45 AM EDT 10/11/2019 11:46 AM EDT Narrative Indexing - 10/12/2019 7:10 PM EDT FASTING:NO FASTING: NO Resulting Agency Comment Performing Organization Information: Site ID: [id number] Name: [facility] Address: [address] [place] [address], [place] [address] Director: Austin Acuna MD Mindy Lockett APRN LAB BLOOD ORDERABLES Final Resul t [facility] from Last 3 Months or Most Recently Relevant to Health Maintenance Care Teams Hand Inspector Relationship Specialty Start Date End Date Samanta Mann [address] [place] [address] PCP - General 09/30/19
--- OUTSIDE RECORDS SUMMARY | 2025-03-23 20:14 | XMS_ITS | Encounter Summary ---
Author Organization [facility] Address [address] [place] [address] Phone Care Team Providers Care Sucker Machine Operator Name Role Phone Samanta Mann NP Primary Care Provider [phone] Catie Adkins Primary Care Provider [phone] Encounter Details Date Type Department Care Team (Late st Contact Info) Description 05/04/2019 Transcribe Orders [address] [address] Kourtney Santos, SAMANTHA [address] [place] [id number] Eating disorder, unspecified type (Primary Dx) Social [...] 04/12/2025 2:30 PM EST Procedure visit [facility] [address] [place] [address] [phone] Doris Damon MD [address] [place] [address] [facility] [place], [place] [id number] [email or web address] documented as of this encounter Results * Carbon dioxide (bicarbonate) (05/04/2019 7:54 AM EST) CO2 22 21 - 35 mmol/L [facility] Blood 05/04/2019 7:54 AM EST 05/04/2019 8:08 AM EST Kourtney Santos DRAIN TILE PRESS OPERATOR LAB BLOOD ORDERABLES Renata l Result Performing Organization Address [facility] Co de Phone Number [address] [address] * Chloride (05/04/2019 7:54 AM EST) CHLORIDE 102 96 - 108 mmol/L [facility] Blood 05/04/2019 7:54 AM EST 05/04/2019 8:08 AM EST Kourtney Santos DRAIN TILE PRESS OPERATOR LAB BLOOD ORDERABLES Renata l Result Performing Organization Address [facility] de Phone Number [address] [address] * (ABNORMAL) 25-OH vitamin D (05/04/2019 7:54 AM EST) 25 OH VIT D (TOTAL) 25(L) 30 - 60 ng/mL [facility] Blood 05/04/2019 7:54 AM EST 05/04/2019 8:08 AM EST Kourtney Santos DRAIN TILE PRESS OPERATOR LAB BLOOD BKR ORDERABLES Final Result Performing Organization Address [facility] de Phone Number [address] [address] * Zinc (05/04/2019 7:54 AM EST) ZINC 0.97 0.66 - 1.10 mcg/mL [facility] [address] Comment: (NOTE) ADDITIONAL INFORMATION This test was developed and its performance characteristics determined by [facility] in a manner consistent with CLIA requirements. This test has not been cleared or approved by the U.S. Food and Drug Administration. Blood 05/04/2019 7:54 AM EST 05/04/2019 8:08 AM EST Kourtney Santos NP LAB BLOOD ORDERABLES Renata l Result Performing Organization Address [facility] Co de Phone Number [facility] [place] [address] * Vitamin B12 (05/04/2019 7:54 AM EST) VITAMIN B12 274 232 - 1,245 pg/mL [facility] Blood 05/04/2019 7:54 AM EST 05/04/2019 8:08 AM EST Kourtney Santos NP LAB BLOOD BKR ORDERABLES Final Result Performing Organization Address [facility] de Phone Number [address] [address] * (ABNORMAL) Urine culture (05/04/2019 7:54 AM EST) Special Requests None 05/04/2019 7:55 AM EST [facility] GRAM STAIN Rare GRAM POSITIVE RODS , Rare GRAM POSITIVE COCCI 05/05/2019 11:47 AM EST [facility] Urine Culture >100,000 colony forming units per mL MIXED ANAT (3 OR MORE COLONY TYPES) Culture indicates contamination . Please resubmit if necessary.(A) 05/06/2019 8:17 AM EST [facility] Urine (Urine) 05/04/2019 7:5 4 AM EST 05/04/2019 8:09 AM EST Kourtney Santos NP LAB MICROBIOLOGY CULTURE ORDERABLES Final Result Performing Organization Address [facility] Co de Phone Number [address] [address] * Toxicology screen, urine (05/04/2019 7:54 AM EST) URINE CANNABINOIDS NONE DETECTED NONE DETECTED [facility] Comment:Cutoff: 50 ng/mL URINE COCAINE METAB NONE DETECTED NONE DETECTED [facility] Comment:Cutoff: 300 ng/mL URINE AMPHETAMINES NONE DETECTED NONE DETECTED [facility] Comment:Cutoff: 1000 ng/mL URINE METHADONE NONE DETECTED NONE DETECTED [facility] Comment:Cutoff: 300 ng/mL URINE OPIATES NONE DETECTED NONE DETECTED [facility] Comment:Cutoff: 300 ng/mL URINE PHENCYCLIDINE NONE DETECTED NONE DETECTED [facility] Comment:Cutoff: 25 ng/mL URINE OXYCODONE NONE DETECTED NONE DETECTED [facility] Comment:Cutoff: 300 ng/ml URINE BARBITURATES NONE DETECTED NONE DETECTED [facility] Comment:Cutoff: 200 ng/mL URINE BENZODIAZEPINE NONE DETECTED NONE DETECTED [facility] Comment: Cutoff: 200 ng/mL INTERPRETATION FOR TOXICOLOGY PANEL: These results are unconfirmed and should be used for Medical Treatment purposes only. Urine (Urine) 05/04/2019 7:5 4 AM EST 05/04/2019 8:08 AM EST Kourtney Santos NP LAB URINE ORDERABLES Renata perez Result [facility] [address] [place] [address] * Lipid panel (05/04/2019 7:54 AM EST) HDL 39 mg/dL [facility] Comment: Interpretation <40 mg/dL: Low HDL cholesterol (major risk factor for CHD) Greater than or equal to 60 mg/dL: High HDL cholesterol ( negative risk factor for CHD) HDL - cholesterol is affected by a number of factors, e.g. smoking, excerise, hormones, sex and age. CHOLESTEROL 143 0 - 169 mg/dL [facility] Comment: Pediatric Reference Ranges for 2 to 18 years Acceptable: Less than 170 mg/dL Borderline: 170 - 199 mg/dL High: Greater than or equal to 200 mg/dL TRIGLYCERIDES 80 30 - 160 mg/dL [facility] LDL 88 50 - 129 mg/dL [facility] Comment: LDL levels in terms of risk for coronary heart disease: <100 mg/dL: Optimal 100-129 mg/dL: Near or above optimal 130-159 mg/dL: Borderline high 160-189 mg/dL: High >190 mg/dL: Very High CARDIAC RISK RATIO 3.7 3.3 - 4.4 C [facility] Blood 05/04/2019 7:54 AM EST 05/04/2019 8:08 AM EST Kourtney Santos NP LAB BLOOD BKR ORDERABLES Final Result Performing Organization Address City/[facility]/ZIP Co de Phone Number [address] [address] * (ABNORMAL) Lipase (05/04/2019 7:54 AM EST) LIPASE 15(L) 16 - 63 U/L [facility] Blood 05/04/2019 7:54 AM EST 05/04/2019 8:08 AM EST Kourtney Santos NP LAB BLOOD BKR ORDERABLES Final Result Performing Organization Address [facility] Co de Phone Number [address] [address] * Iron and iron binding capacity (05/04/2019 7:54 AM EST) IRON 76 30 - 160 ug/dL [facility] IRON BINDING CAPACITY 316 228 - 428 ug/dL [facility] TRANSFERRIN SATURAT. 24 15 - 50 % [facility] Blood 05/04/2019 7:54 AM EST 05/04/2019 8:08 AM EST Kourtney Santos NP LAB BLOOD BKR ORDERABLES Final Result Performing Organization Address City/[facility]/ZIP Co de Phone Number [address] [address] * HCG (Quantitative, Blood) (05/04/2019 7:54 AM EST) HCG BETA <0.1 mIU/mL [facility] Comment: Interpretation: FEMALE: Negative: Less than or equal to 1 mIU/mL. 4 Weeks Post Conception: 9.5 - 750 mIU/mL. 12 Weeks Post Conception: [address] - 3[address] mIU/mL. Blood 05/04/2019 7:54 AM EST 05/04/2019 8:08 AM EST Kourtney Santos DRAIN TILE PRESS OPERATOR LAB BLOOD BKR ORDERABLES Final Result [address] [address] * Folate (05/04/2019 7:54 AM EST) FOLIC ACID 6.8 4.2 - 19.9 ng/mL [facility] Blood 05/04/2019 7:54 AM EST 05/04/2019 8:08 AM EST Kourtney Santos NP LAB BLOOD BKR ORDERABLES Final Result [address] [address] * Ferritin (05/04/2019 7:54 AM EST) FERRITIN 31 13 - 150 ug/L [facility] Blood 05/04/2019 7:54 AM EST 05/04/2019 8:08 AM EST Kourtney Santos NP LAB BLOOD BKR ORDERABLES Final Result Performing Organization Address City/[facility]/ZIP Co de Phone Number [address] [address] * Amylase (05/04/2019 7:54 AM EST) AMYLASE 75 28 - 100 U/L [facility] Blood 05/04/2019 7:54 AM EST 05/04/2019 8:08 AM EST us Kourtney Santos NP LAB BLOOD BKR ORDERABLES Final Result [facility] [address] [place] [address] * (ABNORMAL) CBC and differential (05/04/2019 7:54 AM EST) WBC 6.86 3.40 - 11.20 K/uL [facility] RBC 4.88(H) 3.80 - 4.80 M/uL [facility] HGB 13.6 12.0 - 15.0 g/dL [facility] HCT 40.2 36.0 - 46.0 % [facility] PLT 313 130 - 400 K/uL [facility] MCV 82.4 79.0 - 98.0 fL [facility] MCH 27.9 25.0 - 35.0 pg [facility] MCHC 33.8 31.0 - 37.0 g/dL [facility] RDW 12.2 10.8 - 14.6 % [facility] MPV 10.1 9.4 - 12.4 fl [facility] NRBC 0.00 0.00 /100 WBCs [facility] ABSOLUTE NRBC 0.00 0.00 K/uL [facility] DIFF METHOD Auto [facility] NEUTS 32.4(L) 45.30 - 77.70 % [facility] LYMPHS 54.7(H) 12.30 - 39.70 % [facility] MONOS 7.7 4.10 - 12.80 % [facility] EOS 4.2 0 - 7.2 % [facility] BASOS 0.9 0 - 2.80 % [facility] Granulocytes, immature (%) 0.1 0.0 - 0.9 % [facility] ABSOLUTE NEUTS 2.22 1.40 - 7.70 K/uL [facility] ABSOLUTE LYMPHS 3.75(H) 0.60 - 3.20 K/uL [facility] ABSOLUTE MONOS 0.53 0.11 - 0.59 K/uL [facility] ABSOLUTE EOS 0.29 0.01 - 0.50 K/uL [facility] ABSOLUTE BASOS 0.06 0.00 - 0.08 K/uL [facility] Granulocytes, immature 0.01 0.00 - 0.05 K/uL [facility] Blood 05/04/2019 7:54 AM EST 05/04/2019 8:08 AM EST Kourtney Santos DRAIN TILE PRESS OPERATOR LAB BLOOD BKR ORDERABLES Final Result [address] [address] * Potassium (05/04/2019 7:54 AM EST) POTASSIUM 4.2 3.3 - 5.1 mmol/L [facility] Blood 05/04/2019 7:54 AM EST 05/04/2019 8:08 AM EST Kourtney Santos DRAIN TILE PRESS OPERATOR LAB BLOOD BKR ORDERABLES Final Result Performing Organization Address City/[facility]/ZIP Co de Phone Number [address] [address] * Sodium (05/04/2019 7:54 AM EST) SODIUM 139 133 - 146 mmol/L [facility] Blood 05/04/2019 7:54 AM EST 05/04/2019 8:08 AM EST Kourtney Santos DRAIN TILE PRESS OPERATOR LAB BLOOD BKR ORDERABLES Final Result Performing Organization Address City/[facility]/ZIP Co de Phone Number [address] [address] * Glucose (05/04/2019 7:54 AM EST) GLUCOSE 88 70 - 99 mg/dL [facility] Blood 05/04/2019 7:54 AM EST 05/04/2019 8:08 AM EST us Kourtney Santos DRAIN TILE PRESS OPERATOR LAB BLOOD BKR ORDERABLES Final Result Performing Organization Address [facility]/ZIP Co de Phone Number [address] [address] * TSH (05/04/2019 7:54 AM EST) TSH 1.80 0.27 - 4.20 uIU/mL [facility] Blood 05/04/2019 7:54 AM EST 05/04/2019 8:08 AM EST us Kourtney Santos DRAIN TILE PRESS OPERATOR LAB BLOOD BKR ORDERABLES Final Result Performing Organization Address [facility] Phone Number [address] [address] * Magnesium (05/04/2019 7:54 AM EST) MAGNESIUM 2.0 1.6 - 2.6 mg/dL [facility] Blood 05/04/2019 7:5 4 AM EST 05/04/2019 8:08 AM EST us Kourtney Santos DRAIN TILE PRESS OPERATOR LAB BLOOD BKR ORDERABLES Final Result Performing Organization Address [facility] de Phone Number [address] [address] * Phosphorus (05/04/2019 7:54 AM EST) PHOSPHORUS 4.5 2.7 - 4.5 mg/dL [facility] Blood 05/04/2019 7:54 AM EST 05/04/2019 8:08 AM EST us Kourtney Santos DRAIN TILE PRESS OPERATOR LAB BLOOD BKR ORDERABLES Final Result Performing Organization Address [facility] Co de Phone Number [address] [address] * Calcium (05/04/2019 7:54 AM EST) CALCIUM 9.7 8.4 - 10.3 mg/dL [facility] Blood 05/04/2019 7:54 AM EST 05/04/2019 8:08 AM EST Kourtney Santos DRAIN TILE PRESS OPERATOR LAB BLOOD BKR ORDERABLES Final Result [address] [address] * LFTs (hepatic panel) (05/04/2019 7:54 AM EST) ALKALINE PHOSPHATASE 97 39 - 117 U/L [facility] TOTAL BILIRUBIN 0.6 0.0 - 1.0 mg/dL [facility] DIRECT BILIRUBIN <0.2 0 - 0.3 mg/dL [facility] Bilirubin (Indirect) NOT CALCULATED 0 - 1.5 mg/dL [facility] AST 20 0 - 37 U/L [facility] ALT 14 0 - 40 U/L [facility] TOTAL PROTEIN 7.6 6.5 - 8.0 g/dL [facility] ALBUMIN 4.5 3.9 - 4.8 g/dL [facility] GLOBULIN 3.1 1 - 4.8 g/dL [facility] A/G Ratio 1.45 1.00 - 4.80 RATIO [facility] Blood 05/04/2019 7:54 AM EST 05/04/2019 8:08 AM EST Kourtney Santos NP LAB BLOOD BKR ORDERABLES Final Result [address] [address] * Creatinine/eGFR (05/04/2019 7:54 AM EST) CREATININE 0.70 0.5 - 1.5 mg/dL [facility] EGFR Estimated GFR not calculated for patients <18 years old. mL/min/1. 73m2 [facility] Blood 05/04/2019 7:54 AM EST 05/04/2019 8:08 AM EST us Kourtney Sandeep Santos DRAIN TILE PRESS OPERATOR LAB BLOOD BKR ORDERABLES Final Result Performing Organization Address City/[facility]/ZIP Co de Phone Number [address] [address] * BUN (05/04/2019 7:54 AM EST) BUN 8 6 - 19 mg/dL [facility] Blood 05/04/2019 7:54 AM EST 05/04/2019 8:08 AM EST Kourtney Santos DRAIN TILE PRESS OPERATOR LAB BLOOD BKR ORDERABLES Final Result Performing Organization Address [facility] Co de Phone Number [address] [address] documented in this encounter Visit Diagnoses Diagnosis Eating disorder, unspecified type- Primary documented in this encounter Care Teams Sucker Machine Operator Relationship Specialty Start Date End Date Samanta Mann NP PCP - General Family Medicine 05/04/19 03/16/25 Catie Adkins PA [address] [place] [id number] PCP - General Physician Payer Specialist 03/17/25 documented as of this encounter Additional Source Comments The information contained in this document represents components of the legal health record. It is not the complete legal health record.[facility]
--- OUTSIDE RECORDS SUMMARY | 2025-03-23 20:14 | XMS_ITS | Clinical Summary ---
Author Organization [facility] Address [address] [place] [address] Drive [address] [place] [address] Phone Care Team Providers Care Western Tack Assembly Line Worker Name Role Phone Catie Adkins Primary Care Provider [phone] Encounters Date Type Department Care Team Description 02/23/2025 Transcribe Orders [facility] Orthopedics & Sports Medicine [address] [place] [address] [phone] Catie Adkins PA from Last 3 Months [...] Description 04/12/2025 2:30 PM EST Procedure visit [facility] Orthopedics & Sports Medicine [address] [place] [address] [id number] Doris Daomn MD [address] [place] [address] Orthopedics & Sports Medicine, [facility] [place] [address] [email or web address] Health Maintenance Due Date Last [...] (05/04/2019 7:54 AM EST) HDL 39 mg/dL [facility] Comment: Interpretation <40 mg/dL: Low HDL cholesterol (major risk factor for CHD) Greater than or equal to 60 mg/dL: High HDL cholesterol ( negative risk factor for CHD) HDL - cholesterol is affected by a number of factors, e.g. smoking, excerise, hormones, sex and age. CHOLESTEROL 143 0 - 169 mg/dL [facility] Comment: Pediatric Reference Ranges for 2 to 18 years Acceptable: Less than 170 mg/dL Borderline: 170 - 199 mg/dL High: Greater than or equal to 200 mg/dL TRIGLYCERIDES 80 30 - 160 mg/dL [facility] LDL 88 50 - 129 mg/dL [facility] Comment: LDL levels in terms of risk for coronary heart disease: <100 mg/dL: Optimal 100-129 mg/dL: Near or above optimal 130-159 mg/dL: Borderline high 160-189 mg/dL: High >190 mg/dL: Very High CARDIAC RISK RATIO 3.7 3.3 - 4.4 C [facility] Blood 05/04/2019 7:54 AM EST 05/04/2019 8:08 AM EST Kourtney Santos NP LAB BLOOD BKR ORDERABLES Final Result [facility] [address] [place] [address] from Last 3 Months or Most Recently Relevant to Health Maintenance [place] [address] [place] [address] HMO AET[employer] HMO POS EPO [facility] AETNA HMO POS EPO HMO AETNA HMO POS EPO [facility] HMO [facility] POS EPO [facility] HMO AETNA HMO POS EPO HMO [facility] HMO O O Member Subscriber Plan / Payer (Ef fective 2017-Present) Name:Sanjuana Paredes Relation to Subscriber:Child Name:NOMAN HOSKINS Date of :1979 (Home) Address: [address] [place] [address] Payer ID:Not on file Type:O Address: [place] [id number] [place] [address] [place], [place] [address]O [facility] ERO [facility] HMO Care Teams Western Tack Assembly Line Worker Relationship Specialty Start Date End Date Catie Adkins PA [address] [place] [phone] PCP - General Physician Valet 03/17/25 Additional Source Comments The information contained in this document represents components of the legal health record. It is not the complete legal health record.[facility]
--- OUTSIDE RECORDS SUMMARY | 2025-03-23 20:14 | XMS_ITS | Encounter Summary ---
Author Organization [facility] Address [address] [place] [address] Drive [address] [place] [address] Phone Care Team Providers Care Periodontal Assistant Name Role Phone Samanta Mann HIGH SCHOOL SCIENCE TUTOR Primary Care Provider [phone] Catie Adkins Primary Care Provider + [phone] Encounter Details Date Type Department Care Team (Latest Contact Info) Description 06/03/2019 Transcribe Orders [address] [address] Yolie Spencer NP [address] [place] [phone] Eating disorder, unspecified type (Primary Dx) Social [...] Description 04/12/2025 2:30 PM EST Procedure visit [facility] Orthopedics & Sports Medicine [address] [place] [address] [phone] Doris Damon MD [address] [place] [address] [facility] [place], [place] [phone] [email or web address] documented as of this encounter Results * Carbon dioxide (bicarbonate) (06/03/2019 7:52 AM EST) CO2 22 21 - 35 mmol/L [facility] Blood 06/03/2019 7:52 AM EST 06/03/2019 8:02 AM EST us Yolie Spencer HIGH SCHOOL SCIENCE TUTOR LAB BLOOD ORDERABLES Final Resul t Performing Organization Address [facility] de Phone Number [address] [address] * Chloride (06/03/2019 7:52 AM EST) CHLORIDE 103 96 - 108 mmol/L [facility] Blood 06/03/2019 7:52 AM EST 06/03/2019 8:02 AM EST us Yolie Spencer HIGH SCHOOL SCIENCE TUTOR LAB BLOOD ORDERABLES Final Resul t Performing Organization Address [facility] Phone Number [address] [address] * (ABNORMAL) Lipase (06/03/2019 7:52 AM EST) LIPASE 11(L) 16 - 63 U/L [facility] Blood 06/03/2019 7:52 AM EST 06/03/2019 8:02 AM EST us Yolie Spencer HIGH SCHOOL SCIENCE TUTOR LAB BLOOD BKR ORDERABLES Final R esult Performing Organization Address [facility] Co de Phone Number [address] [address] * Amylase (06/03/2019 7:52 AM EST) AMYLASE 79 28 - 100 U/L [facility] Blood 06/03/2019 7:52 AM EST 06/03/2019 8:02 AM EST us Yolie Spencer HIGH SCHOOL SCIENCE TUTOR LAB BLOOD BKR ORDERABLES Final R esult Performing Organization Address [facility] de Phone Number [address] [address] * Potassium (06/03/2019 7:52 AM EST) POTASSIUM 4.2 3.3 - 5.1 mmol/L [facility] Blood 06/03/2019 7:52 AM EST 06/03/2019 8:02 AM EST us Yolie Spencer NP LAB BLOOD BKR ORDERABLES Final R esult Performing Organization Address City/State/[facility] Co de Phone Number [address] [address] * Sodium (06/03/2019 7:52 AM EST) SODIUM 140 133 - 146 mmol/L [facility] Blood 06/03/2019 7:52 AM EST 06/03/2019 8:02 AM EST Yolie Spencer NP LAB BLOOD BKR ORDERABLES [facility] Performing Organization Address City/[facility] Co de Phone Number [address] [address] * Glucose (06/03/2019 7:52 AM EST) GLUCOSE 83 70 - 99 mg/dL [facility] Blood 06/03/2019 7:52 AM EST 06/03/2019 8:02 AM EST Yolie Spencer NP LAB BLOOD BKR ORDERABLES Final R esult Performing Organization Address City/[facility] Co de Phone Number [address] [address] * Magnesium (06/03/2019 7:52 AM EST) MAGNESIUM 2.1 1.6 - 2.6 mg/dL [facility] Blood 06/03/2019 7:52 AM EST 06/03/2019 8:02 AM EST Yolie Spencer HIGH SCHOOL SCIENCE TUTOR LAB BLOOD BKR ORDERABLES Final R esult [address] [address] * Phosphorus (06/03/2019 7:52 AM EST) PHOSPHORUS 4.0 2.7 - 4.5 mg/dL [facility] Blood 06/03/2019 7:52 AM EST 06/03/2019 8:02 AM EST Yolie Spencer HIGH SCHOOL SCIENCE TUTOR LAB BLOOD BKR ORDERABLES Final R [facility] Performing Organization Address [facility] Co de Phone Number [address] [address] * Calcium (06/03/2019 7:52 AM EST) Pathologist [facility] CALCIUM 9.4 8.4 - 10.3 mg/dL [facility] Blood 06/03/2019 7:52 AM EST 06/03/2019 8:02 AM EST Yolie Spencer HIGH SCHOOL SCIENCE TUTOR LAB BLOOD BKR ORDERABLES Final R [facility] Performing Organization Address [facility] Co de Phone Number [address] [address] * LFTs (hepatic panel) (06/03/2019 7:52 AM EST) ALKALINE PHOSPHATASE 94 39 - 117 U/L [facility] TOTAL BILIRUBIN 0.6 0.0 - 1.0 mg/dL [facility] DIRECT BILIRUBIN <0.2 0 - 0.3 mg/dL [facility] Bilirubin (Indirect) NOT CALCULATED 0 - 1.5 mg/dL [facility] AST 30 0 - 37 U/L [facility] ALT 14 0 - 40 U/L [facility] TOTAL PROTEIN 7.5 6.5 - 8.0 g/dL [facility] ALBUMIN 4.3 3.9 - 4.8 g/dL [facility] GLOBULIN 3.2 1 - 4.8 g/dL [facility] A/G Ratio 1.34 1.00 - 4.80 RATIO [facility] Blood 06/03/2019 7:52 AM EST 06/03/2019 8:02 AM EST us Yolie Spencer HIGH SCHOOL SCIENCE TUTOR LAB BLOOD BKR ORDERABLES Final R esult Performing Organization Address City/[facility]/ZIP Co de Phone Number [address] [address] * Creatinine/eGFR (06/03/2019 7:52 AM EST) CREATININE 0.70 0.5 - 1.5 mg/dL [facility] EGFR Estimated GFR not calculated for patients <18 years old. mL/min/1. 73m2 [facility] Blood 06/03/2019 7:52 AM EST 06/03/2019 8:02 AM EST us Yolie Spencer NP LAB BLOOD BKR ORDERABLES Final R esult Performing Organization Address [facility]/ZIP Co de Phone Number [address] [address] * BUN (06/03/2019 7:52 AM EST) BUN 10 6 - 19 mg/dL [facility] Blood 06/03/2019 7:52 AM EST 06/03/2019 8:02 AM EST us Yolie Spencer HIGH SCHOOL SCIENCE TUTOR LAB BLOOD BKR ORDERABLES Final R esult Performing Organization Address City/[facility] Co de Phone Number [address] [address] documented in this encounter Visit Diagnoses Diagnosis Eating disorder, unspecified type- Primary documented in this encounter Care Teams Periodontal Assistant Relationship Specialty Start Date End Date Samanta Mann NP PCP - General Family Medicine 05/04/19 03/16/25 Catie Adkins PA [address] [place] [address] [phone] PCP - General Physician Speaker Mounter 03/17/25 documented as of this encounter Additional Source Comments The information contained in this document represents components of the legal health record. It is not the complete legal health record.[facility]
[2025-03-23 20:17] VITALS: BP 117/56; PULSE 110; RESP 16; TEMP 36.8; O2SAT 97
== END 2025-03-23 20:17 | disposition home or self-care (01) ==
PROVIDERS: Emergency Provider Emergency Medicine
DX: T14.8XXD Other injury of unspecified body region, subsequent encounter (principal); W55.01XD Bitten by cat, subsequent encounter; Z29.14 Encounter for prophylactic rabies immune globulin; Z20.3 Contact with and (suspected) exposure to rabies
CPT/HCPCS: 90471; 90675; 99282; 99284

== ENCOUNTER 2025-03-27 20:48 | Emergency (ER) | payer OTHER, SELFPAY ==
[2025-03-27 20:51] VITALS: BP 119/56; PULSE 100; RESP 18; TEMP 36.8; O2SAT 96; BMI 21.3
--- OUTSIDE RECORDS SUMMARY | 2025-03-27 21:52 | XMS_ITS | Encounter Summary ---
Author Organization [facility] Address [address] [place] [address] Drive [address] [place] [address] Phone Care Team Providers Care Commercial Instructor Supervisor Name Role Phone Samanta Mann ALGOLOGY TEACHER Primary Care Provider [phone] Catie Adkins Primary Care Provider + [phone] Encounter Details Date Type Department Care Team (Latest Contact Info) Description 06/03/2019 Transcribe Orders [address] [address] Yolie Spencer NP [address] [place] [phone] Eating disorder, unspecified type (Primary Dx) Social [...] Description 04/12/2025 2:30 PM EST Procedure visit [facility] Orthopedics & Sports Medicine [address] [place] [address] [phone] Doris Damon MD [address] [place] [address] [facility] [place], [place] [phone] [email or web address] documented as of this encounter Results * Carbon dioxide (bicarbonate) (06/03/2019 7:52 AM EST) CO2 22 21 - 35 mmol/L [facility] Blood 06/03/2019 7:52 AM EST 06/03/2019 8:02 AM EST us Yolie Spencer ALGOLOGY TEACHER LAB BLOOD ORDERABLES Final Resul t Performing Organization Address [facility] de Phone Number [address] [address] * Chloride (06/03/2019 7:52 AM EST) CHLORIDE 103 96 - 108 mmol/L [facility] Blood 06/03/2019 7:52 AM EST 06/03/2019 8:02 AM EST us Yolie Spencer ALGOLOGY TEACHER LAB BLOOD ORDERABLES Final Resul t Performing Organization Address [facility] Phone Number [address] [address] * (ABNORMAL) Lipase (06/03/2019 7:52 AM EST) LIPASE 11(L) 16 - 63 U/L [facility] Blood 06/03/2019 7:52 AM EST 06/03/2019 8:02 AM EST us Yolie Spencer ALGOLOGY TEACHER LAB BLOOD BKR ORDERABLES Final R esult Performing Organization Address [facility] Co de Phone Number [address] [address] * Amylase (06/03/2019 7:52 AM EST) AMYLASE 79 28 - 100 U/L [facility] Blood 06/03/2019 7:52 AM EST 06/03/2019 8:02 AM EST us Yolie Spencer ALGOLOGY TEACHER LAB BLOOD BKR ORDERABLES Final R esult Performing Organization Address [facility] de Phone Number [address] [address] * Potassium (06/03/2019 7:52 AM EST) POTASSIUM 4.2 3.3 - 5.1 mmol/L [facility] Blood 06/03/2019 7:52 AM EST 06/03/2019 8:02 AM EST us Yolie Spencer NP LAB BLOOD BKR ORDERABLES Final R esult Performing Organization Address City/State/[facility] Co de Phone Number [address] [address] * Sodium (06/03/2019 7:52 AM EST) SODIUM 140 133 - 146 mmol/L [facility] Blood 06/03/2019 7:52 AM EST 06/03/2019 8:02 AM EST Yolie Spencer NP LAB BLOOD BKR ORDERABLES [facility] Performing Organization Address City/[facility] Co de Phone Number [address] [address] * Glucose (06/03/2019 7:52 AM EST) GLUCOSE 83 70 - 99 mg/dL [facility] Blood 06/03/2019 7:52 AM EST 06/03/2019 8:02 AM EST Yolie Spencer NP LAB BLOOD BKR ORDERABLES Final R esult Performing Organization Address City/[facility] Co de Phone Number [address] [address] * Magnesium (06/03/2019 7:52 AM EST) MAGNESIUM 2.1 1.6 - 2.6 mg/dL [facility] Blood 06/03/2019 7:52 AM EST 06/03/2019 8:02 AM EST Yolie Spencer ALGOLOGY TEACHER LAB BLOOD BKR ORDERABLES Final R esult [address] [address] * Phosphorus (06/03/2019 7:52 AM EST) PHOSPHORUS 4.0 2.7 - 4.5 mg/dL [facility] Blood 06/03/2019 7:52 AM EST 06/03/2019 8:02 AM EST Yolie Spencer ALGOLOGY TEACHER LAB BLOOD BKR ORDERABLES Final R [facility] Performing Organization Address [facility] Co de Phone Number [address] [address] * Calcium (06/03/2019 7:52 AM EST) Pathologist [facility] CALCIUM 9.4 8.4 - 10.3 mg/dL [facility] Blood 06/03/2019 7:52 AM EST 06/03/2019 8:02 AM EST Yolie Spencer ALGOLOGY TEACHER LAB BLOOD BKR ORDERABLES Final R [facility] Performing Organization Address [facility] Co de Phone Number [address] [address] * LFTs (hepatic panel) (06/03/2019 7:52 AM EST) ALKALINE PHOSPHATASE 94 39 - 117 U/L [facility] TOTAL BILIRUBIN 0.6 0.0 - 1.0 mg/dL [facility] DIRECT BILIRUBIN <0.2 0 - 0.3 mg/dL [facility] Bilirubin (Indirect) NOT CALCULATED 0 - 1.5 mg/dL [facility] AST 30 0 - 37 U/L [facility] ALT 14 0 - 40 U/L [facility] TOTAL PROTEIN 7.5 6.5 - 8.0 g/dL [facility] ALBUMIN 4.3 3.9 - 4.8 g/dL [facility] GLOBULIN 3.2 1 - 4.8 g/dL [facility] A/G Ratio 1.34 1.00 - 4.80 RATIO [facility] Blood 06/03/2019 7:52 AM EST 06/03/2019 8:02 AM EST us Yolie Spencer ALGOLOGY TEACHER LAB BLOOD BKR ORDERABLES Final R esult Performing Organization Address City/[facility]/ZIP Co de Phone Number [address] [address] * Creatinine/eGFR (06/03/2019 7:52 AM EST) CREATININE 0.70 0.5 - 1.5 mg/dL [facility] EGFR Estimated GFR not calculated for patients <18 years old. mL/min/1. 73m2 [facility] Blood 06/03/2019 7:52 AM EST 06/03/2019 8:02 AM EST us Yolie Spencer NP LAB BLOOD BKR ORDERABLES Final R esult Performing Organization Address [facility]/ZIP Co de Phone Number [address] [address] * BUN (06/03/2019 7:52 AM EST) BUN 10 6 - 19 mg/dL [facility] Blood 06/03/2019 7:52 AM EST 06/03/2019 8:02 AM EST us Yolie Spencer ALGOLOGY TEACHER LAB BLOOD BKR ORDERABLES Final R esult Performing Organization Address City/[facility] Co de Phone Number [address] [address] documented in this encounter Visit Diagnoses Diagnosis Eating disorder, unspecified type- Primary documented in this encounter Care Teams Commercial Instructor Supervisor Relationship Specialty Start Date End Date Samanta Mann NP PCP - General Family Medicine 05/04/19 03/16/25 Catie Adkins PA [address] [place] [phone] PCP - General Physician Mixing Machine Feeder 03/17/25 documented as of this encounter Additional Source Comments The information contained in this document represents components of the legal health record. It is not the complete legal health record.[facility]
--- OUTSIDE RECORDS SUMMARY | 2025-03-27 21:52 | XMS_ITS | Encounter Summary ---
Author Organization [facility] Address [address] [place] [address] Phone Care Team Providers Care Periodontist Name Role Phone Samanta Mann NP Primary Care Provider [phone] Catie Adkins Primary Care Provider [phone] Encounter Details Date Type Department Care Team (Late st Contact Info) Description 05/04/2019 Transcribe Orders [address] [address] Kourtney Santos, SAMANTHA [address] [place] [phone] Eating disorder, unspecified type (Primary Dx) Social [...] Description 04/12/2025 2:30 PM EST Procedure visit [facility] Orthopedics & Sports Medicine [address] [place] [address] [phone] Doris Damon MD [address] [place] [address] [facility] [place], [place] [phone] [email or web address] documented as of this encounter Results * Carbon dioxide (bicarbonate) (05/04/2019 7:54 AM EST) CO2 22 21 - 35 mmol/L [facility] Blood 05/04/2019 7:54 AM EST 05/04/2019 8:08 AM EST Kourtney Santos TOWER TRUCK DRIVER LAB BLOOD ORDERABLES Renata l Result Performing Organization Address [facility] Co de Phone Number [address] [address] * Chloride (05/04/2019 7:54 AM EST) CHLORIDE 102 96 - 108 mmol/L [facility] Blood 05/04/2019 7:54 AM EST 05/04/2019 8:08 AM EST Kourtney Santos TOWER TRUCK DRIVER LAB BLOOD ORDERABLES Renata l Result Performing Organization Address [facility] de Phone Number [address] [address] * (ABNORMAL) 25-OH vitamin D (05/04/2019 7:54 AM EST) 25 OH VIT D (TOTAL) 25(L) 30 - 60 ng/mL [facility] Blood 05/04/2019 7:54 AM EST 05/04/2019 8:08 AM EST Kourtney Santos TOWER TRUCK DRIVER LAB BLOOD BKR ORDERABLES Final Result Performing Organization Address [facility] de Phone Number [address] [address] * Zinc (05/04/2019 7:54 AM EST) ZINC 0.97 0.66 - 1.10 mcg/mL [facility] [address] Comment: (NOTE) ADDITIONAL INFORMATION This test was developed and its performance characteristics determined by [facility] in a manner consistent with CLIA requirements. This test has not been cleared or approved by the U.S. Food and Drug Administration. Blood 05/04/2019 7:54 AM EST 05/04/2019 8:08 AM EST Kourtney Santos NP LAB BLOOD ORDERABLES Renata l Result Performing Organization Address [facility] Co de Phone Number [facility] [address] [place] [address] * Vitamin B12 (05/04/2019 7:54 AM EST) VITAMIN B12 274 232 - 1,245 pg/mL [facility] Blood 05/04/2019 7:54 AM EST 05/04/2019 8:08 AM EST Kourtney Santos NP LAB BLOOD BKR ORDERABLES Final Result Performing Organization Address [facility] de Phone Number [address] [address] * (ABNORMAL) Urine culture (05/04/2019 7:54 AM EST) Special Requests None 05/04/2019 7:55 AM EST [facility] GRAM STAIN Rare GRAM POSITIVE RODS , Rare GRAM POSITIVE COCCI 05/05/2019 11:47 AM EST [facility] Urine Culture >100,000 colony forming units per mL MIXED ANAT (3 OR MORE COLONY TYPES) Culture indicates contamination . Please resubmit if necessary.(A) 05/06/2019 8:17 AM EST [facility] Urine (Urine) 05/04/2019 7:5 4 AM EST 05/04/2019 8:09 AM EST Kourtney Santos NP LAB MICROBIOLOGY CULTURE ORDERABLES Final Result Performing Organization Address [facility] Co de Phone Number [address] [address] * Toxicology screen, urine (05/04/2019 7:54 AM EST) URINE CANNABINOIDS NONE DETECTED NONE DETECTED [facility] Comment:Cutoff: 50 ng/mL URINE COCAINE METAB NONE DETECTED NONE DETECTED [facility] Comment:Cutoff: 300 ng/mL URINE AMPHETAMINES NONE DETECTED NONE DETECTED [facility] Comment:Cutoff: 1000 ng/mL URINE METHADONE NONE DETECTED NONE DETECTED [facility] Comment:Cutoff: 300 ng/mL URINE OPIATES NONE DETECTED NONE DETECTED [facility] Comment:Cutoff: 300 ng/mL URINE PHENCYCLIDINE NONE DETECTED NONE DETECTED [facility] Comment:Cutoff: 25 ng/mL URINE OXYCODONE NONE DETECTED NONE DETECTED [facility] Comment:Cutoff: 300 ng/ml URINE BARBITURATES NONE DETECTED NONE DETECTED [facility] Comment:Cutoff: 200 ng/mL URINE BENZODIAZEPINE NONE DETECTED NONE DETECTED [facility] Comment: Cutoff: 200 ng/mL INTERPRETATION FOR TOXICOLOGY PANEL: These results are unconfirmed and should be used for Medical Treatment purposes only. Urine (Urine) 05/04/2019 7:5 4 AM EST 05/04/2019 8:08 AM EST Kourtney Santos NP LAB URINE ORDERABLES Renata perez Result [facility] [address] [place] [address] * Lipid panel (05/04/2019 7:54 AM EST) HDL 39 mg/dL [facility] Comment: Interpretation <40 mg/dL: Low HDL cholesterol (major risk factor for CHD) Greater than or equal to 60 mg/dL: High HDL cholesterol ( negative risk factor for CHD) HDL - cholesterol is affected by a number of factors, e.g. smoking, excerise, hormones, sex and age. CHOLESTEROL 143 0 - 169 mg/dL [facility] Comment: Pediatric Reference Ranges for 2 to 18 years Acceptable: Less than 170 mg/dL Borderline: 170 - 199 mg/dL High: Greater than or equal to 200 mg/dL TRIGLYCERIDES 80 30 - 160 mg/dL [facility] LDL 88 50 - 129 mg/dL [facility] Comment: LDL levels in terms of risk for coronary heart disease: <100 mg/dL: Optimal 100-129 mg/dL: Near or above optimal 130-159 mg/dL: Borderline high 160-189 mg/dL: High >190 mg/dL: Very High CARDIAC RISK RATIO 3.7 3.3 - 4.4 [facility] Blood 05/04/2019 7:54 AM EST 05/04/2019 8:08 AM EST Kourtney Santos NP LAB BLOOD BKR ORDERABLES Final Result Performing Organization Address City/[facility]/ZIP Co de Phone Number [address] [address] * (ABNORMAL) Lipase (05/04/2019 7:54 AM EST) LIPASE 15(L) 16 - 63 U/L [facility] Blood 05/04/2019 7:54 AM EST 05/04/2019 8:08 AM EST Kourtney Santos NP LAB BLOOD BKR ORDERABLES Final Result Performing Organization Address [facility] Co de Phone Number [address] [address] * Iron and iron binding capacity (05/04/2019 7:54 AM EST) IRON 76 30 - 160 ug/dL [facility] IRON BINDING CAPACITY 316 228 - 428 ug/dL [facility] TRANSFERRIN SATURAT. 24 15 - 50 % [facility] Blood 05/04/2019 7:54 AM EST 05/04/2019 8:08 AM EST Kourtney Santos NP LAB BLOOD BKR ORDERABLES Final Result Performing Organization Address City/[facility]/ZIP Co de Phone Number [address] [address] * HCG (Quantitative, Blood) (05/04/2019 7:54 AM EST) HCG BETA <0.1 mIU/mL [facility] Comment: Interpretation: FEMALE: Negative: Less than or equal to 1 mIU/mL. 4 Weeks Post Conception: 9.5 - 750 mIU/mL. 12 Weeks Post Conception: [id number] - [id number] mIU/mL. Blood 05/04/2019 7:54 AM EST 05/04/2019 8:08 AM EST Kourtney Santos TOWER TRUCK DRIVER LAB BLOOD BKR ORDERABLES Final Result [address] [address] * Folate (05/04/2019 7:54 AM EST) FOLIC ACID 6.8 4.2 - 19.9 ng/mL [facility] Blood 05/04/2019 7:54 AM EST 05/04/2019 8:08 AM EST Kourtney Santos NP LAB BLOOD BKR ORDERABLES Final Result [address] [address] * Ferritin (05/04/2019 7:54 AM EST) FERRITIN 31 13 - 150 ug/L [facility] Blood 05/04/2019 7:54 AM EST 05/04/2019 8:08 AM EST Kourtney Santos NP LAB BLOOD BKR ORDERABLES Final Result Performing Organization Address City/[facility]/ZIP Co de Phone Number [address] [address] * Amylase (05/04/2019 7:54 AM EST) AMYLASE 75 28 - 100 U/L [facility] Blood 05/04/2019 7:54 AM EST 05/04/2019 8:08 AM EST us Kourtney Santos NP LAB BLOOD BKR ORDERABLES Final Result [facility] [address] [place] [address] * (ABNORMAL) CBC and differential (05/04/2019 7:54 AM EST) WBC 6.86 3.40 - 11.20 K/uL [facility] RBC 4.88(H) 3.80 - 4.80 M/uL [facility] HGB 13.6 12.0 - 15.0 g/dL [facility] HCT 40.2 36.0 - 46.0 % [facility] PLT 313 130 - 400 K/uL [facility] MCV 82.4 79.0 - 98.0 fL [facility] MCH 27.9 25.0 - 35.0 pg [facility] MCHC 33.8 31.0 - 37.0 g/dL [facility] RDW 12.2 10.8 - 14.6 % [facility] MPV 10.1 9.4 - 12.4 fl [facility] NRBC 0.00 0.00 /100 WBCs [facility] ABSOLUTE NRBC 0.00 0.00 K/uL [facility] DIFF METHOD Auto [facility] NEUTS 32.4(L) 45.30 - 77.70 % [facility] LYMPHS 54.7(H) 12.30 - 39.70 % [facility] MONOS 7.7 4.10 - 12.80 % [facility] EOS 4.2 0 - 7.2 % [facility] BASOS 0.9 0 - 2.80 % [facility] Granulocytes, immature (%) 0.1 0.0 - 0.9 % [facility] ABSOLUTE NEUTS 2.22 1.40 - 7.70 K/uL [facility] ABSOLUTE LYMPHS 3.75(H) 0.60 - 3.20 K/uL [facility] ABSOLUTE MONOS 0.53 0.11 - 0.59 K/uL [facility] ABSOLUTE EOS 0.29 0.01 - 0.50 K/uL [facility] ABSOLUTE BASOS 0.06 0.00 - 0.08 K/uL [facility] Granulocytes, immature 0.01 0.00 - 0.05 K/uL [facility] Blood 05/04/2019 7:54 AM EST 05/04/2019 8:08 AM EST Kourtney Santos TOWER TRUCK DRIVER LAB BLOOD BKR ORDERABLES Final Result [address] [address] * Potassium (05/04/2019 7:54 AM EST) POTASSIUM 4.2 3.3 - 5.1 mmol/L [facility] Blood 05/04/2019 7:54 AM EST 05/04/2019 8:08 AM EST Kourtney Santos TOWER TRUCK DRIVER LAB BLOOD BKR ORDERABLES Final Result Performing Organization Address City/[facility]/ZIP Co de Phone Number [address] [address] * Sodium (05/04/2019 7:54 AM EST) SODIUM 139 133 - 146 mmol/L [facility] Blood 05/04/2019 7:54 AM EST 05/04/2019 8:08 AM EST Kourtney Santos TOWER TRUCK DRIVER LAB BLOOD BKR ORDERABLES Final Result Performing Organization Address City/[facility]/ZIP Co de Phone Number [address] [address] * Glucose (05/04/2019 7:54 AM EST) GLUCOSE 88 70 - 99 mg/dL [facility] Blood 05/04/2019 7:54 AM EST 05/04/2019 8:08 AM EST us Kourtney Santos TOWER TRUCK DRIVER LAB BLOOD BKR ORDERABLES Final Result Performing Organization Address City/[facility]/ZIP Co de Phone Number [address] [address] * TSH (05/04/2019 7:54 AM EST) TSH 1.80 0.27 - 4.20 uIU/mL [facility] Blood 05/04/2019 7:54 AM EST 05/04/2019 8:08 AM EST us Kourtney Santos TOWER TRUCK DRIVER LAB BLOOD BKR ORDERABLES Final Result Performing Organization Address [facility] Phone Number [address] [address] * Magnesium (05/04/2019 7:54 AM EST) MAGNESIUM 2.0 1.6 - 2.6 mg/dL [facility] Blood 05/04/2019 7:54 AM EST 05/04/2019 8:08 AM EST us Kourtney Santos TOWER TRUCK DRIVER LAB BLOOD BKR ORDERABLES Final Result Performing Organization Address [facility] Co de Phone Number [address] [address] * Phosphorus (05/04/2019 7:54 AM EST) PHOSPHORUS 4.5 2.7 - 4.5 mg/dL [facility] Blood 05/04/2019 7:54 AM EST 05/04/2019 8:08 AM EST us Kourtney Santos TOWER TRUCK DRIVER LAB BLOOD BKR ORDERABLES Final Result Performing Organization Address [facility] Co de Phone Number [address] [address] * Calcium (05/04/2019 7:54 AM EST) CALCIUM 9.7 8.4 - 10.3 mg/dL [facility] Blood 05/04/2019 7:54 AM EST 05/04/2019 8:08 AM EST Kourtney Santos TOWER TRUCK DRIVER LAB BLOOD BKR ORDERABLES Final Result [address] [address] * LFTs (hepatic panel) (05/04/2019 7:54 AM EST) ALKALINE PHOSPHATASE 97 39 - 117 U/L [facility] TOTAL BILIRUBIN 0.6 0.0 - 1.0 mg/dL [facility] DIRECT BILIRUBIN <0.2 0 - 0.3 mg/dL [facility] Bilirubin (Indirect) NOT CALCULATED 0 - 1.5 mg/dL [facility] AST 20 0 - 37 U/L [facility] ALT 14 0 - 40 U/L [facility] TOTAL PROTEIN 7.6 6.5 - 8.0 g/dL [facility] ALBUMIN 4.5 3.9 - 4.8 g/dL [facility] GLOBULIN 3.1 1 - 4.8 g/dL [facility] A/G Ratio 1.45 1.00 - 4.80 RATIO [facility] Blood 05/04/2019 7:54 AM EST 05/04/2019 8:08 AM EST Kourtney Santos NP LAB BLOOD BKR ORDERABLES Final Result [address] [address] * Creatinine/eGFR (05/04/2019 7:54 AM EST) CREATININE 0.70 0.5 - 1.5 mg/dL [facility] EGFR Estimated GFR not calculated for patients <18 years old. mL/min/1. 73m2 [facility] Blood 05/04/2019 7:54 AM EST 05/04/2019 8:08 AM EST Kourtney Sandeep Tom TOWER TRUCK DRIVER LAB BLOOD BKR ORDERABLES Final Result Performing Organization Address City/[facility]/ZIP Co de Phone Number [address] [address] * BUN (05/04/2019 7:54 AM EST) BUN 8 6 - 19 mg/dL [facility] Blood 05/04/2019 7:54 AM EST 05/04/2019 8:08 AM EST Kourtney Santos TOWER TRUCK DRIVER LAB BLOOD BKR ORDERABLES Final Result Performing Organization Address [facility] Co de Phone Number [address] [address] documented in this encounter Visit Diagnoses Diagnosis Eating disorder, unspecified type- Primary documented in this encounter Care Teams Periodontist Relationship Specialty Start Date End Date Samanta Mann NP PCP - General Family Medicine 05/04/19 03/16/25 Catie Adkins PA [address] [place] [phone] PCP - General Physician Staff Anesthesiologist 03/17/25 documented as of this encounter Additional Source Comments The information contained in this document represents components of the legal health record. It is not the complete legal health record.[facility]
--- OUTSIDE RECORDS SUMMARY | 2025-03-27 21:52 | XMS_ITS | Clinical Summary ---
Author Organization [facility] Address [address] [place] [address] [address] [place] [address] Phone Care Team Providers Care Belly Roller Name Role Phone Catie Adkins Primary Care Provider [phone] Encounters Date Type Department Care Team Description 02/23/2025 Transcribe Orders [facility] Orthopedics & Sports Medicine [address] [place] [address] [phone] Catie Adkins PA from Last 3 Months [...] 04/12/2025 2:30 PM EST Procedure visit [facility] Orthopedics & Sports Medicine [address] [place] [address] [phone] Doris Damon MD [address] [place] [address] Orthopedics & Sports Medicine, [facility] [place] [address] [email or web address] Health Maintenance Due Date Last [...] (05/04/2019 7:54 AM EST) HDL 39 mg/dL [facility] Comment: Interpretation <40 mg/dL: Low HDL cholesterol (major risk factor for CHD) Greater than or equal to 60 mg/dL: High HDL cholesterol ( negative risk factor for CHD) HDL - cholesterol is affected by a number of factors, e.g. smoking, excerise, hormones, sex and age. CHOLESTEROL 143 0 - 169 mg/dL [facility] Comment: Pediatric Reference Ranges for 2 to 18 years Acceptable: Less than 170 mg/dL Borderline: 170 - 199 mg/dL High: Greater than or equal to 200 mg/dL TRIGLYCERIDES 80 30 - 160 mg/dL [facility] LDL 88 50 - 129 mg/dL [facility] Comment: LDL levels in terms of risk for coronary heart disease: <100 mg/dL: Optimal 100-129 mg/dL: Near or above optimal 130-159 mg/dL: Borderline high 160-189 mg/dL: High >190 mg/dL: Very High CARDIAC RISK RATIO 3.7 3.3 - 4.4 [facility] Blood 05/04/2019 7:54 AM EST 05/04/2019 8:08 AM EST Kourtney Santos NP LAB BLOOD BKR ORDERABLES Final Result [facility] [address] [place] [address] from Last 3 Months or Most Recently Relevant to Health Maintenance [place] [address] [place] [address] HMO [employer]ET[employer] HMO POS EPO [facility] H[facility] AET[employer] HMO POS EPO HMO AET[employer] HMO POS EPO [facility] E[facility] HMO A[employer] HMO POS EPO HMO [facility] HMO O O Member Subscriber Plan / Payer (Ef fective 2017-Present) Name:Sanjuana Paredes Relation to Subscriber:Child Name:NOMAN HOSKINS Date of :1979 (Home) Address: [address] [place] [address] Payer ID:Not on file Type:O Address: [place] [id number] [place] [address] [place], [place] [address]O [facility] HMO Care Teams Belly Roller Relationship Specialty Start Date End Date Caite Adkins PA [address] [place] [phone] PCP - General Physician Packaging Technician 03/17/25 Additional Source Comments The information contained in this document represents components of the legal health record. It is not the complete legal health record.[facility]
--- OUTSIDE RECORDS SUMMARY | 2025-03-27 21:52 | XMS_ITS | Clinical Summary ---
Author Organization [facility] Address [address] [place] [address] Care Team Providers Care Water Fabricator Operator Name Role Phone Samanta Mann Primary Care Provider [phone] Source Comments Please note that some or [...] so, obtain the minor's consent prior to disclosure.[facility] Allergies Active Allergy Reactions Criticality Noted [...] AG/AB, 4TH GEN NON-REACT HARESH NON-REACT HARESH [facility] Comment: HIV-1 antigen and HIV-1/HIV-2 antibodies were [...] purpose. For additional information please refer to http://education.[employer]/faq/WCU475 (This link is being provided for informational/ educational purposes only.) The performance of this assay has not been clinically validated in patients less than 2 years old. Blood specimen (specimen) 10/11/2019 11:45 AM EDT 10/11/2019 11:46 AM EDT Narrative [facility] - 10/12/2019 7:10 PM EDT FASTING:NO FASTING: NO Resulting Agency Comment Performing Organization Information: Site ID: [id number] Name: [facility] Address: [address] [place] [address], [place] [address] Director: Austin Acuna MD Mindy Lockett APRN LAB BLOOD ORDERABLES Final Resul t [facility] from Last 3 Months or Most Recently Relevant to Health Maintenance Care Teams Water Fabricator Operator Relationship Specialty Start Date End Date Samanta Mann [address] [place] [phone] PCP - General 09/30/19
--- NOTE | 2025-03-27 21:53 | ED_ITS ---
HPI - General Adult General Chief complaint: General Medical Stated complaint: General Medical Time Seen by Provider: 03/27/25 21:14 History of Present Illness ED Provider: Tasha Mc NP HPI narrative: 19-year-old female history of anxiety, depression, mild intermittent asthma, recent cat bite on 03/20/2025, with a 2nd rabies vaccine administration on 03/23/2025, presents to the ED today for her 3rd rabies vaccination. Reports that the cat bite area is significantly improving to the right forearm. No fever, chills, chest pain or pressure, shortness of breath, abdominal pain. No additional medical complaints. Patient could not present to the infusion c linic/follow up area today given her work schedule. Related Data Home Medications ?Medication ?Instructions ?Recorded ?Confirmed medroxyprogesterone 150 mg/mL 150 mg IM [id number] 03/2509/10/23 intramuscular syringe (Depo-Provera) Previous Rx's ?Medication ?Instructions ?Recorded cholecalciferol (vitamin D3) 125 125 mcg PO DAILY #90 caps 04/21/23 mcg (5,000 unit) capsule albuterol sulfate 90 mcg/actuation 2 puff inhalation Q 4-6H PRN 07/04/23 aerosol inhaler shortness of breath or wheez ing #6.7 grams albuterol sulfate 2.5 mg/0.5 mL [address] shortness 08/06/23 solution for nebulization of breath or wheezing #30 ea acetaminophen 500 mg capsule 1,000 mg (2 x 500 mg) PO Q6H PRN 08/26/23 fever #30 caps ondansetron 8 mg disintegrating 8 mg PO Q8H NAUSEA AND VOMITING 08/26/23 tablet #30 tabs azithromycin 500 mg tablet See Rx Instructions PO .COM PLEX #3 09/10/23 tabs famotidine 20 mg tablet (Pepcid) 20 mg PO BID 14 days #28 tabs 12/08/24 omeprazole 20 mg capsule,delayed 20 mg PO DAILY #14 ca ps 12/08/24 release doxycycline hyclate 100 mg tablet 100 mg PO BID #14 ta bs 03/20/25 ibuprofen 600 mg tablet 600 mg PO Q8H PRN fever or p ain 03/20/25 #20 tabs metronidazole 500 mg tablet 500 mg PO Q8H 7 days #21 t abs 03/20/25 Allergies Allergy/AdvReac Type Severity Reaction Status Date / Time amoxicillin (From Augmentin) Allergy Intermediate Hives Verified 03/27/25 20:53 clavulanic acid (From Allergy Intermediate Hives Verified 03/27/25 20:53 Augmentin) Levaquin AdvReac Severe Nausea and Uncoded 03/27/25 20:53 Vomiting Review of Systems Review of Systems: ROS is otherwise negative unless mentioned in HPI. [facility] Past Medical History Medical History (Updated 03/27/25 @ 22:11 by Tasha Mc [facility]) Vitamin D deficiency Refused influenza vaccine COVID-19 vaccination refused Hx of suicide attempt Anxiety and depression On Depo-Provera for contraception Engages in vaping Mild intermittent asthma History of pyelonephritis Surgical History History of placement of ear tubes H/O removal of cyst History of hand surgery Family History Family History Father Substance use disorder Mental health disorder Chronic alcoholism Mother Depression Maternal Grandmother Mental health disorder Biventricular congestive heart failure Paternal Grandmother Mental health disorder Paternal Grandfather Diabetes mellitus Social History Social History Housing: Apartment Alcohol intake: never Patient Tobacco Use Status: Never used Tobacco e-Cigarette/Vaping Use: Currently Using Advance Directives: No Advance Directives Information Provided: Yes Current occupational status: employed Current occupation: [employer] Current occupational exposures/hazards: No Cognitive needs: No Hearing needs: No Vision needs: No Physical Exam ED Exam Exam: Nursing notes and vital signs reviewed. Constitutional: Well-appearing, NAD. Alert. Oriented X3. Eyes: Symmetrical. Neck: Normal inspection. Neck supple. CVS: Pulses normal. Respiratory: No respiratory distress. Abdomen: Nondistended. Skin: Skin warm and dry. Normal skin color. Healing cat bite/scratch to right forearm. Extremities: No lower extremity edema. Neuro: Oriented X 3. No motor deficit. Vital Signs: Vital Signs - 24 hr 03/27/25 20:51 Temperature 98.3 F Pulse Rate 100 Respiratory Rate 18 Blood Pressure 119/56 L Pulse Oximetry 96 Oxygen Delivery Method Room Air BMI result Body Mass Index 21.3 Medical Decision Making Medical Decision Making MDM Narrative: 10:08 PM 03/27/2025 (Tasha Mc NP): This is a well-appearing female patient, whom I evaluated in the PIT area. She presents with no acute medical complaints, but is requesting her 3rd rabies vaccination. She was initially bit on 03/20/2025, received the 1st dose that day, and 2nd dose 03/23/2025. I have confirmed with the vaccine schedule, and she is due for her 3rd vaccine today. She will be due for her 4th vaccine on April 03, 2025. Given she overall appears well, we will administer the 3rd vaccine in the ED tonight, and discharge home with outpatient follow up. Patient agreeable, expressed understa nding. Differential Diagnosis Differential Diagnoses: The differential diagnosis associated with the presentation includes Encounter for vaccination, worsening wound Admission/Observation Consideration of admission/observation: Escalation of care including admission /observation considered (Not indicated) Independent Historian None External Record Review External record reviewed: Other (Prior ER visits.) Chronic Conditions None Social Determinants Patient?s care significantly limited by Social Determinants of Health including: Problems related to primary support group and Problems related to employment Discharge Plan Discharge Clinical Impression: Encounter for repeat administration of rabies vaccination Patient Disposition: Home, Self-Care Instructions: Rabies Vaccine (By injection) Additional Instructions: As we discussed, you received your 3rd dose of the rabies vaccine today. You are due to come back 1 week from today, on April 03, 2025 for your repeat rabi es vaccine. Please follow up with your primary care provider within 1 week. Return to the ER any time with any worsening complaints. Prescriptions: No Action albuterol sulfate 2.5 mg/0.5 mL solution for nebulization 5 mg inhalation Q6H PRN (Reason: shortness of breath or wheezing) Qty: 30 0RF doxycycline hyclate 100 mg tablet 100 mg PO BID Qty: 14 0RF metronidazole 500 mg tablet 500 mg PO Q8H 7 Days Qty: 21 0RF ibuprofen 600 mg tablet 600 mg PO Q8H PRN (Reason: fever or pain) Qty: 20 0RF albuterol sulfate 90 mcg/actuation HFA aerosol inhaler 2 puff inhalation Q4-6H PRN (Reason: shortness of breath or wheezing) Qty: 6.7 0RF famotidine [Pepcid] 20 mg tablet 20 mg PO BID 14 Days Qty: 28 0RF omeprazole 20 mg capsule,delayed release(DR/EC) 20 mg PO DAILY Qty: 14 0RF medroxyprogesterone [Depo-Provera] 150 mg/mL syringe 150 mg IM [id number] azithromycin 500 mg tablet See Rx Instructions PO .COMPLEX Qty: 3 0RF Rx Instructions: For 500 mg dose pack: take 500 mg once daily for 3 days PO cholecalciferol (vitamin D3) 125 mcg (5,000 unit) capsule 125 mcg PO DAILY Qty: 90 0RF acetaminophen 500 mg capsule 1,000 mg PO Q6H PRN (Reason: fever) Qty: 30 0RF ondansetron 8 mg tablet,disintegrating 8 mg PO Q8H Qty: 30 0RF Referrals: Catie Adkins PA [Primary Care Provider, Family Practice] Print Language: Greek
[2025-03-27] MEDS: Rabies Vaccine (PCEC)/PF 1 ML VIAL IM (22:33)
[2025-03-27 22:41] VITALS: BP 119/56; PULSE 100; RESP 18; TEMP 36.8; O2SAT 96
== END 2025-03-27 22:41 | disposition home or self-care (01) ==
PROVIDERS: Emergency Provider Emergency Medicine Emergency Medical Services
DX: S51.851A Open bite of right forearm, initial encounter (principal); W55.01XA Bitten by cat, initial encounter; Y93.9 Activity, unspecified; Y92.9 Unspecified place or not applicable; Y99.8 Other external cause status; Z23 Encounter for immunization; Z79.899 Other long term (current) drug therapy; Z29.14 Encounter for prophylactic rabies immune globulin; Z20.3 Contact with and (suspected) exposure to rabies
CPT/HCPCS: 90471; 90675; 99282; 99284